=== PATIENT | female | born 1995 | race Caucasian/White ===

== ENCOUNTER 2017-02-02 08:10 | Day surgery (SDC) | payer BC, OTHER ==
[~2017-02-02] VITALS: Ht 160 cm; Wt 59.4 kg
[~2017-02-02 08:10] MED LIST: BUDESONIDE EC3 MG PO; CEPHALEXIN250 MG/5 M PO; CEPHALEXIN500 MG PO; CLINDAMYCIN HC150 MG PO; DOXYCYCLINE HY100 MG PO; HUMIRA40 MG/0.1 SUB-Q; MULTIVITAMINS1 EAC7 PO; NORCO 5-325 TA1 EACH PO; NORDETTE-281 EACH PO; PREDNISONE20 MG PO
[2017-02-02] MEDS ORDERED: CYMBALTA30 MG PO (08:22)
--- NOTE | 2017-02-02 09:56 | NUR ---
PT IN FOR PORTACATH PLACEMENT. HAS HAD TO MOVE HOME FROM [facility] [place] BECAUSE OF HER CHRONS DISEASE. PT HAS A GREAT SARCASTIC SENSE OF HUMOR. GREAT SUPPORT BY HER PARENTS. SHE IS ALERT, ORIENTED AND WELL AWARE OF WHAT IS TAKING PLACE TODAY. PT DECLINED PRAYER, WILL FOLLOW NEEDED
--- NOTE | 2017-02-02 11:19 | NUR ---
02/02/17 1119 [facility] PORTACATH LINE CLEARED FOR USE BY DR JOYNER.
--- NOTE | 2017-02-02 12:04 | NUR ---
1158 PT UP TO THE BATHROOM WITH TYLOR ASST. TOLERATED WELL, STEADY ON HER FEET. VOID NOTED AND PT BACK TO BED.
[2017-02-02] MEDS ORDERED: NORCO 5-325 TA1 EACH PO (12:25)
--- NOTE | 2017-02-02 13:30 | NUR ---
INFORMATION CARD AND PAMPHLET REGARDING PORTACATH GIVEN TO PT.
--- NOTE | 2017-02-05 08:50 | OR ---
[facility] [address], [place] [address] Signed DATE OF SERVICE: 02/02/2017 PREOPERATIVE DIAGNOSES: 1. Crohn's disease. 2. Iron-deficiency anemia. 3. Malabsorption. POSTOPERATIVE DIAGNOSIS: 1. Crohn's disease. 2. Iron-deficiency anemia. 3. Malabsorption. PROCEDURE: 1. Placement of subclavian Port A catheter. 2. Physician directed fluoroscopy. ESTIMATED BLOOD LOSS: None. INDICATIONS: Shannan is a 21-year-old female, who was diagnosed with Crohn's disease around 2012. Shannan has been associated with malabsorption resulting in iron-deficiency anemia. She has been coming for peripheral IV infusion therapy every 2 weeks as ordered by her primary care provider. In addition, she has failed Humira and Remicade because of cutaneous abscesses. She is now headed for IV Entyvio. Last time she came to our day surgery area and it took overran hour to find a peripheral vein even with the help of the ultrasound. Consequently, she has been asked to see me for a Port A Catheter placement. I met with Shannan and her father in the office. Shannan has been online reading. She is very knowledgeable of Crohn's disease and Port A catheters. She specifically declined an IJ approach. We did discuss the risks including, but not limited to bleeding, infection, scarring, change in contour of the skin, pneumothorax requiring chest tube placement, as well as catheter embolization requiring retrieval. She understands the catheter fracture is much higher in the subclavian approach and it is the IJ approach. Nevertheless, she wished to proceed with a subclavian approach. She and her dad expressed understanding and wished to proceed. PROCEDURE NOTE: Shannan was taken into the operating room and placed in the Trendelenburg position under general anesthesia. She was given preoperative antibiotics and SCDs were utilized. She had declined her subcutaneous heparin for fear of increased bleeding. After this, she was prepped and draped in the usual sterile fashion. Local anesthetic was injected around the left clavicle and underneath the left clavicle. We Electronically Signed By: ONI JOYNER MD 02/05/17 0850 PATIENT NAME: SHANNAN MAYFIELD OPERATIVE REPORT DATE OF : [birth year] PHYSICIAN: ONI JOYNER MD REPORT #: [id number] REPORT IS CONFIDENTIAL AND NOT TO BE RELEASED WITHOUT AUTHORIZATION [facility] [address], [place] [address] Signed were able to access the subclavian vein on the 2nd pass of the needle and the wire was able to feed without any resistance whatsoever. The position of the wire was checked with our fluoroscopy unit. The dilator was then carefully passed over the wire without any resistance whatsoever. The position of the dilator was checked with the fluoroscopy unit. After this, the catheter was inserted up to about 20 cm at the level of the clavicle through the dilator. The position was again checked with the fluoroscopy unit.The dilator head sheath had Been removed and we cut the catheter at length and placed the hub on the catheter with the collar securing the catheter on to the hub. The port was able toflush and draw quite readily with injectable saline. We had created a pocket on her anterior chest wall and hub was then placed in the pocket and sutured in place with interrupted Prolene sutures. Again the position of hub and the catheter was checked with the fluoroscopy unit. Once again, we were able to easily draw blood and flushed the catheter with injectable saline. After this, the catheter and hub were filled with concentrated heparin. The wound was Then Irrigated and suctioned out until clear. The dermis was reapproximated with interrupted 3-0 subcuticular Monocryl sutures. Theskin edges were reapproximated with running 6-0 fast absorbing plain gut suture. Dry gauze and tape was then applied. Shannan tolerated procedure quite well. She was then transferred to her hospital bed, weaned from anesthesia, extubated in the OR, and taken to recovery room in stable condition. MD NIKITA Mccormick/Modl /[id number] cc: MD Marilia Thornton [facility] Itz Ríos MD Electronically Signed By: ONI JOYNER MD 02/05/17 0850 PATIENT NAME: SHANNAN MAYFIELD OPERATIVE REPORT DATE OF : [birth year] PHYSICIAN: ONI JOYNER MD REPORT #: [id number] REPORT IS CONFIDENTIAL AND NOT TO BE RELEASED WITHOUT AUTHORIZATION
== END 2017-02-02 13:25 | disposition home or self-care (01) ==
LOC: DS 08:10
PROVIDERS: Colon & Rectal Surgery
PROC: B517YZA Fluoroscopy of Left Subclavian Vein using Other Contrast, Guidance (ICD-10-PCS; 2017-02-02)
PROC: 05H633Z Insertion of Infusion Device into Left Subclavian Vein, Percutaneous Approach (ICD-10-PCS; principal; 2017-02-02 09:15)
DX: D50.9 Iron deficiency anemia, unspecified (principal); K50.90 Crohn's disease, unspecified, without complications; F32.9 Major depressive disorder, single episode, unspecified; F41.9 Anxiety disorder, unspecified; Z87.01 Personal history of pneumonia (recurrent); Z98.818 Other dental procedure status
CPT/HCPCS: 00532; 71010; 77001; C1788; J0690; J1100; J1644; J2250; J2405; J3010; J7120

== ENCOUNTER 2020-03-04 08:57 | Day surgery (SDC) | payer OTHER ==
[~2020-03-04] VITALS: Ht 160 cm; Wt 56.7 kg
--- NOTE | ~2020-03-04 | OR ---
[facility] [address], [place] [address] Draft DATE OF OPERATION: 03/04/2020 SURGEON: Stewart Erazo MD PREOPERATIVE DIAGNOSES: 1. Right axillary abscess. 2. Chronic recurrent Crohn disease with extra intestinal manifestations including multiple skin lesions. POSTOPERATIVE DIAGNOSIS: A deep axillary abscess with chronic granulation tissue. PROCEDURES: 1. Incision and drainage of right axillary abscess. 2. Curettage and debridement of soft tissue, right axilla. 3. Open wound packing. ANESTHESIA: General LMA, Jacobo Herrera CRNA. INDICATION: This 24-year-old white woman is a patient of Dr. Peyton Canseco and also now Dr. Ayla Wood in [facility] (Gastroenterology). She has impressively recalcitrant Crohn disease and known terminal ileal stricture, recently dilated. She has failed multiple biologic agents and is now anticipating investigational new drugs for her problem. She has recently developed a right axillary abscess. 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 The right axillary abscess is recurrent. She has had this before, which was drained. There is exquisite tenderness and a general anesthetic is needed for complete evaluation and treatment of this problem. She is admitted at this time to undergo incision and drainage, and debridement of the lesion as appropriate. She and her family understand the risks of bleeding, infection, prolonged wound healing, and other unforeseen complications and wished to proceed. FINDINGS: Indeed thick purulent material was noted. There was a cavity approximately 4 cm in size, it had chronic granulation tissue in it as well. This was fully debrided with sharp and electrocautery dissection and curettaged. Redundant excessive stretched marginally viable skin was also excised. The wound was packed open. PATIENT NAME: SHANNAN MAYFIELD OPERATIVE REPORT DATE OF : [birth year] REPORT #: [id number] PHYSICIAN: STEWART ERAZO MD PCP: PEYTON CANSECO MD REPORT IS CONFIDENTIAL AND NOT TO BE RELEASED WITHOUT AUTHORIZATION [facility] [address], [place] [address] Draft DESCRIPTION OF PROCEDURE: The patient was brought to the operating room, given a general anesthetic by LMA technique. Preoperative antibiotic Ancef was given. Sequential compression device stockings were used and heparin subcutaneously administered. The right axilla was examined and photographs taken. The area was prepared with a chlorhexidine solution and draped sterilely. An incision was made in the distended skin containing the abscess allowing for egress of purulent material. Gram stain and cultures were obtained. Further incision and suctioning allowed for egress of copious amounts of purulent material. The cavity itself had acute and chronic granulation tissue lining the cavity. This was debrided, but with sharp dissection as well as ultimately electrocautery, fully excising the granulation tissue itself. Redundant skin was excised as well. Curettage was undertaken with abrasion of gauze. A dilute chlorhexidine solution was used to irrigate it as well. Ultimately, the wound was packed with plain gauze and tape applied. She was allowed to emerge from anesthesia and taken to the recovery room in good condition, having suffered no complications. Sponge, needle, and instruments counts were correct x3. Stewart Erazo MD JM/MODL /[id number] cc: Dr. AYLA Joe [place], [place] Peyton Canseco MD Copies: ~ PATIENT NAME: SHANNAN MAYFIELD OPERATIVE REPORT DATE OF : [birth year] REPORT #: [id number] PHYSICIAN: STEWART ERAZO MD PCP: PEYTON CANSECO MD REPORT IS CONFIDENTIAL AND NOT TO BE RELEASED WITHOUT AUTHORIZATION
[~2020-03-04 08:57] MED LIST changes: +CIPRO500 MG PO; +CYMBALTA30 MG PO; +DIPHENOXYLATE-1 EACH PO; +ENTYVIO300 MG IV; +FAMOTIDINE20 MG PO; +FLAGYL500 MG PO; +FOLIC ACID1 MG PO; +K-TAB ER20 MEQ PO; +MAGNESIUM400 MG PO; +MULTIVITAMINS1 EAC8 PO; +MUPIROCIN22 GM TOP; +ONDANSETRON ODT4 MG SL; +PREDNISONE10 MG PO; +STELARA90 MG/1 ML SUB-Q; +TREXALL15 MG PO; +TYLENOL325 MG PO; +VITAMIN D10000 UNIT PO; +VITAMIN D22000 UNIT PO; +ZOFRAN ODT4 MG PO
[2020-03-04] MEDS ORDERED: PERCOCET 5-3251 EACH PO (09:20)
[2020-03-04] MEDS ORDERED: CIMZIA400 MG SUB-Q (09:21)
[2020-03-04] MEDS ORDERED: AMOX TR-K CLV1 EAC1 PO (11:46)
[2020-03-04] MEDS ORDERED: IBUPROFEN600 MG PO (11:46)
[2020-03-04] MEDS ORDERED: ACETAMINOPHEN500 MG PO (11:47)
[2020-03-04] MEDS ORDERED: HYDROMORPHONE HC4 MG PO (11:47)
[2020-03-04] MEDS ORDERED: DIFLUCAN100 MG PO (11:56)
--- NOTE | 2020-03-04 12:39 | NUR ---
03/04/20 1239 Flori Schaffer 1122 PT ARRIVED IN PACU NON RESPONSIVE TO NOXIOUS STIMULI. 1137 PT AWAKE AND C/O R AXILLARY PAIN 10/10. MOVING AROUND BED AND CRYING. DILAUDID 0.4MG GIVEN IVP. TISSUES GIVEN. 1142 NO CHANGE IN PAIN LEVEL. HOLLERING OUT IN PAIN. DILAUDID 0.4MG GIVEN IVP. RN COMFORTING PT. 1147 PAIN DOWN TO 9/10. DILAUDID 0.2MG GIVEN IVP. 1157 TC TO ANESTHESIA WITH NEW ORDERS GIVEN. PT DECLINED FENTANYL AND POST OP BLOCK WHEN OFFERED. UP TO BSC. DILAUDID 0.4MG GIVEN IVP FOR 8/10 R AXILLARY PAIN. 1203 CONTINUES TO SIT ON BSC. UNABLE TO VOID. DILAUDID 0.4MG GIVEN IVP FOR 7/10 PAIN. 1208 PT STATES "I CAN'T VOID WITH SOMEONE IN THE ROOM." BACK IN BED WITH RN ASSIST. C/O BURNING IN R AXILLA /10. DILAUDID 0.2MG GIVEN IVP. 1215 R ARM ELEVATED ON PILLOW FOR PT COMFORT. 1220 TO DS. REPORT GIVEN TO RN.
--- NOTE | 2020-03-04 12:56 | NUR ---
LE 1220: PATIENT RETURNS FROM PACU AND IS REPORTING 7/10 RIGHT AXILLAE PAIN. PATIENT REPORTS "I CANNOT TAKE IBUPROFEN BECAUSE OF MY CROHNS." PATIENT IS UP TO THE BATHROOM WITH MY STANDBY. SHE AMBULATES WELL AND DENIES DIZZINESS. PATIENT REPORTS "A LITTLE" VOID. NO URINE NOTED TO HAT. PATIENT IS BACK IN BED. ICED WATER IS GIVEN. CALL LIGHT IS WITHIN REACH AND HER FATHER IS AT THE BEDSIDE. CALL TO DR ERAZO REQUESTING ORAL PAIN MEDICINE FOR DAY SURGERY. PATIENT ALSO IS REQUESTING PERCOCET GO HOME RX RATHER THAN DILAUDID. JELLO AND PUDDING ARE GIVEN TO PATIENT.
--- NOTE | 2020-03-04 13:56 | NUR ---
MULTIPLE PHONE CALLS TO DR. ERAZO REGARDING PATIENT'S DECLINATION OF DILAUDID AND PREFERENCE TO PERCOCET. NEW ORDER IS RECEIVED. DR. ERAZO REQUESTS THE PATIENT'S FATHER COME TO HIS OFFICE POST 1600 FOR NEW HOME RX FOR PERCOCET. PATIENT IS AMICABLE TO THIS PLAN. PATIENT IS UP TO THE BATHROOM AND SHE DOES WELL WITH THAT. PATIENT IS QUITE TEARFUL DUE TO HER PAIN CONTROL. PATIENT IS BACK IN BED AND IS CONVERSING WITH HER FATHER.
--- NOTE | 2020-03-04 15:01 | NUR ---
LE 1430: PATIENT IS UP TO THE BATHROOM, VOIDS 300 ML CLEAR DARK YELLOW URINE. SHE DOES WELL AMBULATING. DISCHARGE INSTRUCTIONS ARE GIVEN AND PATIENT AND FATHER VERBALIZE UNDERSTANDING. GAUZE AND TAPE SENT WITH PATIENT. PATIENT ASSISTED DRESSED AND SHE TRANSFERS HERSELF TO THE WHEELCHAIR AND THEN TO PERSONAL VEHICLE AND TOLERATES THAT WELL.
--- NOTE | 2020-03-05 11:02 | PATH ---
[facility] [address] [place], [place] [address] Signed SPECIMEN(S): A RIGHT AXILLA SPECIMEN SOURCE: A. RIGHT AXILLA CLINICAL HISTORY: Right axillary abscess ID. FINAL PATHOLOGIC DIAGNOSIS: Skin, right axilla, products of debridement, debridement: - Fragments of reactive epidermis with acute and chronic inflammation and underlying dermal granulation tissue formation. - No evidence of malignancy. NAL:cml:C2NR MICROSCOPIC EXAMINATION: Histologic sections of all submitted blocks are examined by light microscopy. These findings, together with the gross examination, support the pathologic diagnosis. GROSS DESCRIPTION: The specimen, labeled "CP," and designated on the requisition "products of debridement, right axillary abscess," is received in formalin and consists of two pieces of pink-huntley to hemorrhagic skin with underlying soft tissue (3.1 x 0.9 x 0.5 cm, and 2.8 x 1.2 x 0.5 cm). The tissue is serially sectioned to reveal a pink-huntley to hemorrhagic cut surface. Cloth Classer sections are submitted in cassette (A1). AC (under the direct supervision of a pathologist) The Gross Description was prepared using a voice recognition system. The report was reviewed for accuracy; however, sound-alike word errors, addition and/or deletions may occur. If there is any question about this report, please contact Client Services. PERFORMING LABORATORY: The technical component was performed by [email or web address], [address] [place] [id number] (Pilates Coordinator: Anuradha Ro MD; CLIA# [id number]). [email or web address], [address] [address] (CLIA# [id number]). PATIENT NAME: SHANNAN MAYFIELD PATHOLOGY DATE OF : [birth year] REPORT #: [id number] PHYSICIAN: KHARI PATHOLOGY PCP: ELIO CRONIN MD REPORT IS CONFIDENTIAL AND NOT TO BE RELEASED WITHOUT AUTHORIZATION [address] [place] [address] Signed Diagnostician: Savannah Phoenix MD Pathologist Electronically Signed 03/05/2020 Copies: ~ PATIENT NAME: SHANNAN MAYFIELD PATHOLOGY DATE OF : [birth year] REPORT #: [id number] PHYSICIAN: KHARI PATHOLOGY PCP: ELIO CRONIN MD REPORT IS CONFIDENTIAL AND NOT TO BE RELEASED WITHOUT AUTHORIZATION
== END 2020-03-04 14:50 | disposition home or self-care (01) ==
LOC: DS 08:57
PROVIDERS: Surgery
PROC: 0H9BXZZ Drainage of Right Upper Arm Skin, External Approach (ICD-10-PCS; principal; 2020-03-04 09:45)
DX: L02.411 Cutaneous abscess of right axilla (principal); D64.9 Anemia, unspecified; K21.9 Gastro-esophageal reflux disease without esophagitis; K50.90 Crohn's disease, unspecified, without complications; L88 Pyoderma gangrenosum; Z88.8 Allergy status to other drugs, medicaments and biological substances; Z79.899 Other long term (current) drug therapy
CPT/HCPCS: 00400; 84703; J0690; J1100; J1170; J1885; J2001; J2405; J2704; J3010; J7121

== ENCOUNTER 2020-04-23 03:02 | Inpatient (IN) | payer OTHER ==
[~2020-04-23] VITALS: Ht 160 cm; Wt 56.8 kg
--- NOTE | ~2020-04-23 | DS ---
[facility] [address] [place], [place] [address] Draft ADMISSION DATE: 04/23/2020 DISCHARGE DATE: 04/29/2020 REASON FOR ADMISSION: This 25-year-old white woman has longstanding Crohn disease and has failed multiple medical agents for control of the disease including biologic agents. She was treated initially in [place]. I assumed her care a number of months ago when she had incomplete bowel obstruction. She was referred ultimately to [facility], where she was seen by Dr. Wood, and subsequently Dr. Foote in the Gastroenterology Department. The patient was most recently on Cimzia and azathioprine, but did not have benefit from those medications as regard to her segmental small bowel problem and has been off any agent for control of her Crohn disease for over two months. She presented with severe lower abdominal pain and thought considered to have possible appendicitis by the emergency room physician. CT scans performed, which showed a normal appendix, but did show abnormal appearing small bowel with wall thickening, stranding and extraluminal air and focal area in the left mid abdomen consistent with small bowel perforation. She was admitted for further evaluation and care by me. PERTINENT PHYSICAL EXAMINATION: GENERAL: Showed a pale-appearing white woman, accompanied by her father. She was in moderate discomfort, but not diaphoretic. Mucous membranes are dry. NECK: Trachea midline. CHEST: Without sign of respiratory distress or tachypnea. HEART: Regular. ABDOMEN: Nondistended. She had tenderness in the right abdomen and less on the left side. LABORATORY DATA: Her hematocrit was 42.5, platelets 720,000, and white count 880[address]. Liver enzymes normal. Albumin low at 2.7. A CT scan was reviewed, which showed marked inflammatory change of the mid small bowel with extraluminal air, but no sign of generalized free air. The terminal ileum appeared chronically inflamed as well. HOSPITAL COURSE: The patient was admitted, given aggressive fluid resuscitation, broad-spectrum PATIENT NAME: SHANNAN MAYFIELD DISCHARGE SUMMARY DATE OF : [birth year] REPORT #: [id number] PHYSICIAN: STEWART ERAZO MD PCP: PEYTON CANSECO MD REPORT IS CONFIDENTIAL AND NOT TO BE RELEASED WITHOUT AUTHORIZATION [facility] [address] [place], [place] [address] Draft antibiotic meropenem started on hydrocortisone 100 mg IV q.8 hours. DVT prophylaxis as well as ulcer prophylaxis were obtained of course. She did feel better the following day with her white count down to normal and her hematocrit decreased, a testimony primarily to her generalized dehydration. She still had this significant tenderness in the mid abdomen. Review of the CT scan with radiologist confirmed extraluminal air outside the segment of small bowel, consider a junction between the ileum and the jejunum. The patient had been considered for operative management in the distant past, but this was declined as it was of great concern that her ileal Crohn disease extended more proximally for several feet, and therefore a resection would be prohibitive in many ways. Mindful that she had failure of any medical management and now had perforation of the bowel with some variable amount of extraluminal contamination, I recommended laparoscopy, possible laparotomy. On April 24, 2020, she underwent laparoscopy with thorough intraabdominal examination. This allowed for examination of the small bowel from the ligament of Treitz to the terminal ileum. She was noted to have on laparoscopic evaluation, a mid gut segment of small bowel that was markedly inflamed and thickened and with associated extra-intestinal purulent collections. These collections were cultured and later shows pansensitive. Interloop fistulization was noted as well. The offending segment of bowel was secured with a laparoscopic grasper and conversion to a limited mini-laparotomy through an infraumbilical incision was undertaken. The problematic segment of small bowel was drawn outside of the abdomen and showed interloop fistulization and chronic and acute inflammation as well as the perforation segments as previously noted. Segmental bowel resection was undertaken with an end-to-end enteroenterostomy. The size of the bowel proximally and distally was such that an end-to-end anastomosis was deemed optimal actually. The resected segment was 16 inches as a measured length in total. Mindful of her long-standing terminal ileitis examination distally was undertaken showing problematic terminal ileum as well, and it was recalled that she had undergone dilation of the segment by Dr. Foote in the past several months. The right colon and cecum were mobilized out of the wound and the ileocecectomy was performed. A markedly thickened mesentery was noted in both areas of resection. A [id number] enterocolostomy was performed in a hand-sewn technique once again. The remaining PATIENT NAME: SHANNAN MAYFIELD DISCHARGE SUMMARY DATE OF : [birth year] REPORT #: [id number] PHYSICIAN: STEWART ERAZO MD PCP: PEYTON CANSECO MD REPORT IS CONFIDENTIAL AND NOT TO BE RELEASED WITHOUT AUTHORIZATION [address] [address] Draft intraabdominal inspection shows no other problems. The most problematic offending bowel has been resected and GI continuity restored. Copious irrigation was undertaken and no drain was left in place. Postoperatively, she was maintained with broad-spectrum antibiotics and hydrocortisone 100 mg IV q.8 hours. She had marked improvement right away, indeed even her systemic toxicity looked quite minimal. She was weaned off high-dose steroids to prednisone 20 mg a day. Phone conference was undertaken with Dr. Foote, who recommended she return to her Cimzia and azathioprine as she is no longer considered a candidate for the protocol study. Her steroids were discontinued at time of discharge. Her cultures of peritoneal fluid ultimately showed E coli, which was pansensitive. She will be discharged with Flagyl and Cipro orally administered for one week. Additionally, she will be given Diflucan 200 mg p.o. daily #7 seven as she is beginning to have a yeast infection. By the time of discharge, she is ambulating well, tolerating a regular diet, has minimal incisional pain, and is much improved. A special note, she has had a fair amount of peripheral edema, for which Lasix was initiated. This is related indeed to fluid resuscitation, but also importantly her hypoalbuminemia. Special note, pre-albumin level was obtained at the outside of her hospitalization, which was only 5.8. FOLLOWUP PLANS: The patient is return to see me in approximately a month. She should lift no more than 20 pounds for the next 4 weeks. She should walk daily. She will keep Steri-Strips on and is permitted to shower. There are no restrictions on her diet, it should be as tolerated. I emphasized to her that it is essential that she return to a medical regimen regarding the Crohn disease as it may well recur even with it and the plan will be made for further followup with Dr. Wood and Dr. Foote as well. Dr. Foote tells me that her Cimzia and azathioprine has already been prescribed and is available to her. DISCHARGE DIAGNOSES: 1. Severe Crohn disease medically refractory to the usual medications. 2. Presentation with perforated small bowel mid abdomen, status post segmental resection PATIENT NAME: SHANNAN MAYFIELD DISCHARGE SUMMARY DATE OF : [birth year] REPORT #: [id number] PHYSICIAN: STEWART ERAZO MD PCP: PEYTON CANSECO MD REPORT IS CONFIDENTIAL AND NOT TO BE RELEASED WITHOUT AUTHORIZATION [facility] [address] [place], [place] [address] Draft with end-to-end anastomosis and ileocecectomy, aggregate bowel resected 16 inches + 6 inches. 3. Poorly healing scalp lesion in the left frontal parietal area, history of debridement. In addition of this, the patient will follow up with her usual physician, Dr. Peyton Canseco. DISCHARGE MEDICATIONS: 1. Tylenol 500 mg two tablets p.o. q.6 hours p.r.n. pain. 2. Lasix 20 mg p.o. b.i.d. 3. Famotidine 20 mg p.o. b.i.d. 4. Diflucan 100 mg p.o. daily. 5. Ciprofloxacin 500 mg p.o. b.i.d., #14. 6. Potassium chloride 20 mEq p.o. b.i.d., #14. MD ROSANNE Caraballo/MODL /[id number] cc: Peyton Canseco MD Copies: ~ PATIENT NAME: SHANNAN MAYFIELD DISCHARGE SUMMARY DATE OF : [birth year] REPORT #: [id number] PHYSICIAN: STEWART ERAZO MD PCP: PEYTON CANSECO MD REPORT IS CONFIDENTIAL AND NOT TO BE RELEASED WITHOUT AUTHORIZATION
--- OUTSIDE RECORDS SUMMARY | ~2020-04-23 | XMS | Encounter Summary ---
Demographics + + + | Address | [address] | | | [place] [address] | + + + | Home Phone | | + + + | Preferred Language | Unknown | + + + | Marital Status | Single | + + + | Pentecostalism Affiliation | Unknown | + + + | Race | White | + + + | Ethnic Group | Not or | + + + Author + + + | Author | [facility] | | | and [place] | + + + | Organization | [facility] | | | and [place] | + + + | Address | Unknown | + + + | Phone | Unavailable | + + + Support + + + + + | Name | Relationship | Address | Phone | + + + + + | Ancajany White | ECON | [address] | | | | | [place] | | | | | [address] | | + + + + + Care Team Providers + +------+ + | Care Shipping Clerk/Admin Name | Role | Phone | + +------+ + | Peyton Canseco MD | PCP | | + +------+ + Encounter Details +--------+ + + + + | Date | Type | Department | Care Team | Description | +--------+ + + + + | 06/14/ | Orders Only | [facility] | Conversion | | | 2018 | | CONVERSION DEP [address] | Transaction, | | | | | [address] | Provider Unknown | | | | | [place], [place] | [phone] | | | | | [address] | | | | | | [phone] | | | +--------+ + + + + Social History + +-------+ +--------+------+ | Tobacco Use | Types | Packs/Day | Years | Date | | | | | Used | | + +-------+ +--------+------+ | Never Assessed | | | | | + +-------+ +--------+------+ + + + | Sex Assigned at | Date Recorded | | | | + + + | Not on file | | + + + documented as of this encounter Plan of Treatment Not on filedocumented as of this encounter Visit Diagnoses Not on filedocumented in this encounter"
--- OUTSIDE RECORDS SUMMARY | ~2020-04-23 | XMS | Encounter Summary ---
Demographics + + + | Address | [address] | | | [place] [address] | + + + | Home Phone | | + + + | Preferred Language | Unknown | + + + | Marital Status | Single | + + + | Gnosticism Affiliation | Unknown | + + + | Race | White | + + + | Ethnic Group | Not or | + + + Author + + + | Author | [facility] | | | and [place] | + + + | Organization | [facility] | | | and [place] | + + + | Address | Unknown | + + + | Phone | Unavailable | + + + Support + + + + + | Name | Relationship | Address | Phone | + + + + + | Ancajany White | ECON | [address] | | | | | [place] | | | | | [address] | | + + + + + Care Team Providers + +------+ + | Care President [employer] Name | Role | Phone | + +------+ + | Peyton Canseco MD | PCP | | + +------+ + Reason for Visit +--------+ + | Reason | Comments | +--------+ + | | | +--------+ + Auth/Cert +--------+--------+ + + + + | Status | Reason | Specialty | Diagnoses / | Referred By | Referred To | | | | | Procedures | Contact | Contact | +--------+--------+ + + + + | | | | Diagnoses | | | | | | | | | | | | | | Qaxlnij-xq-x | | | | | | | no | | | | | | | Procedures | | | | | | | EXAM UNDER | | | | | | | ANESTHESIA | | | | | | | RECTAL | | | +--------+--------+ + + + + Encounter Details +--------+---------+ + + + | Date | Type | Department | Care Team | Description | +--------+---------+ + + + | 10/01/ | Surgery | [facility] | Juan Zepeda, | EXAM UNDER | | 2019 | | REGIONAL SURGERY | MD Rose WATKINS | ANESTHESIA RECTAL | | | | [facility] | [address] | | | | | [address] | [place] [address] | | | | | [place], [place] | [phone] | | | | | [address] | | | | | | [phone] | | | +--------+---------+ + + + Social History + +-------+ +--------+------+ | Tobacco Use | Types | Packs/Day | Years | Date | | | | | Used | | + +-------+ +--------+------+ | Never Smoker | | | | | + +-------+ +--------+------+ + +---+---+---+ | Smokeless Tobacco: | | | | | Never Used | | | | + +---+---+---+ + + +---------+ + | Alcohol Use | Drinks/Week | oz/Week | Comments | + + +---------+ + | Not Currently | | | | + + +---------+ + + + + | Sex Assigned at | Date Recorded | | | | + + + | Not on file | | + + + documented as of this encounter Last Filed Vital Signs + + + + + | Vital Sign | Reading | Time Taken | Comments | + + + + + | Blood Pressure | 102/52 | 10/02/2019 9:45 AM | | | | | PDT | | + + + + + | Pulse | 97 | 10/02/2019 9:45 AM | | | | | PDT | | + + + + + | Temperature | 36.5 C (97.7 F) | 10/02/2019 9:27 AM | | | | | PDT | | + + + + + | Respiratory Rate | 40 | 10/02/2019 9:30 AM | | | | | PDT | | + + + + + | Oxygen Saturation | 100% | 10/02/2019 9:45 AM | | | | | PDT | | + + + + + | Inhaled Oxygen | - | - | | | Concentration | | | | + + + + + | Weight | 60.2 kg (132 lb 12.8 | 10/02/2019 8:26 AM | | | | oz) | PDT | | + + + + + | Height | 160 cm (5' 3") | 10/02/2019 8:26 AM | | | | | PDT | | + + + + + | Body Mass Index | 23.52 | 10/02/2019 8:26 AM | | | | | PDT | | + + + + + documented in this encounter Discharge Instructions Jah Vieyra RN - 10/02/2019Post-Surgical Instructions Juan Zepeda MD MEDICATIONS You will be given a prescription for pain. Take 1-2 tablets every 4-6 hours as needed. Pa in medications will ease your pain, but you should expect some incisional pain for about 7-1 0 days. You should walk often, cough and take deep breathes. DIET You will begin a high fiber diet. The easiest way to a high fiber diet is to take a fiber supplement. An excellent supplement is plain, unflavored Metamucil. You should take one ta blespoon in 8 oz of water twice a day. Ideally, you should take the supplement before break fast and dinner. You may experience some gas bloating for the first 2 weeks. This is leeann l and will go away as long as you keep taking the supplement. Other supplements that can be taken include Pet Walker, Benefiber, Konsyl, or Citrucel. Continue to take the fiber supple ment for 1 month. In addition, go to the drugstore and get Jono s Milk of Magnesia. While you are taking your prescription pain medication, take 2 tablespoons of Milk of Magnesia each morning. Th is will prevent you from getting overly constipated while on the narcotic drug. Once you st op taking the prescription pain medication, you may stop taking the Milk of Magnesia. WOUND CARE You will perform sitz baths two-three times a day for 3-4 weeks. Sitz baths simply mean so aking your anus in a tub of warm-hot water for about 15 minutes. Sitz baths will clean the anal wound as well as relax the anal sphincter muscles, which will help minimize your pain. Be careful around the anal wound, especially if you have stitches on the outside. Gently p at your anus dry (never rub) or simply dry your anus with a blow-dryer set to cool/warm. D o not soak your anus beyond 15 minutes. If you have a packing placed on the outside of the anus which you can remove with your nex t shower or bowel movement. You will need to go to the pharmacy for 4x4 gauze and paper tape. The first dressing sexton e should be completed on the evening after surgery. It is normal to see some blood when the dressing is removed. Replace the dressing with a dry gauze covered with tape. Dressing ch anges should be performed 2-3 times a day after soaking your wound in a tub of warm-hot wate r or showering for 15 minutes (water should fall directly on wound). You may place a female hygiene pad over the wound rather than gauze. You may also cover the opening with gauze an d then cover the gauze with a female hygiene pad. It is your choice based on comfort. ACTIVITY After surgery, your driving reflexes will be slower, especially if you are taking pain medi cations. Therefore, you are restricted from driving until after your follow-up visit and af ter you have stopped taking your prescription pain meds. You may walk about the house, go s hopping, or eat at a restaurant. You may also climb stairs, but no weight lifting, power-wa lking, jogging, or using the Stair-Master . You can sit on your wound, but keep in min d that the less you sit, the less pain you will have. APPOINTMENT Please call our office for an appointment in 2 weeks after surgery, unless otherwise instru cted. This will allow ample time for the swelling and soreness to resolve before your wound is examined. There may be some bleeding from your wound. This is normal. If you begin bl eeding heavily, have fevers, chills, or if you are concerned about your wound, please call s immediately at [phone] or go to the [facility] Emergency Room. documented in this encounter Medications at Time of Discharge + + + +---------+ + + | Medication | Sig | Dispensed | Refills | Start | End Date | | | | | | Date | | + + + +---------+ + + | acetaminophen | Take 500 mg by mouth | | 0 | 06/14/20 | | | (TYLENOL) 500 mg | every 6 (six) hours | | | 18 | | | tablet | as needed for Pain. | | | | | + + + +---------+ + + | azaTHIOprine | | | 0 | 09/28/19 | | | (IMURAN) 50 mg | | | | 20 | | | tablet | | | | | | + + + +---------+ + + | cholecalciferol | Take 50 mcg by mouth | | 0 | | | | (VITAMIN D-3) 50 mcg | Daily. | | | | | | (2,000 units) | | | | | | | tablet | | | | | | + + + +---------+ + + | Multiple | Take 1 tablet by | | 0 | 06/14/20 | | | Vitamins-Minerals | mouth daily. | | | 18 | | | (MULTIVITAMIN WITH | | | | | | | MINERALS) tablet | | | | | | + + + +---------+ + + | ondansetron | dissolve 1 tablet by | | 0 | 05/09/20 | | | (ZOFRAN ODT) 4 mg | mouth three times a | | | 18 | | | disintegrating | day if needed for | | | | | | tablet | nausea | | | | | + + + +---------+ + + | | Take 1 tablet by | 30 | 0 | 10/02/19 | | | oxyCODONE-acetaminop | mouth every 6 hours | tablet | | 20 | 0 | | hen (PERCOCET) 5-325 | as needed for Pain | | | | | | mg per tablet | for up to 14 days. | | | | | + + + +---------+ + + documented as of this encounter H&P Notes Juan Zepeda MD - 10/02/2019 8:02 AM PDTFormatting of this note might be different f rom the original. Audrey White is an 24 y.o. female. History Obtained From: History obtained from chart review and the patient. CHIEF COMPLAINT: perianal pain and bleeding. ATA Ventura is a very pleasant 24-year-old female patient with a history of Crohn's disease, no w currently on Remicade. Her current GI provider is in [place]. She has tried Humira Entyv io and Stelara without significant improvement in her symptoms. 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 At her last seton exchange this was extremely uncom fortable for her. No other complaints at this time. Patient also met with a surgeon in [facility] who did not recommend surgery for Crohn's disease. Past Medical History: Diagnosis Date Anemia hx Anxiety Back pain Crohn disease (HCC) Crohn's disease of both small and large intestine with fistula (HCC) 05/24/2018 Heart murmur MRSA (methicillin resistant staph aureus) culture positive 06/2018 prior to debridement Other chronic pain intestinal cramping PONV (postoperative nausea and vomiting) Postoperative nausea Staphylococcus infection Wound drainage perirectal Allergies: Allergies Allergen Reactions Remicade [Infliximab] Anaphylaxis Principal Problem: Wzchakz-mg-iyb Vitals: 10/02/19 0826 BP: 112/70 Pulse: 109 Resp: 16 Temp: 36.7 C (98 F) Review of Systems All other systems reviewed and are negative. Physical Exam Vitals signs and nursing note reviewed. HENT: Head: Atraumatic. Mouth/Throat: Mouth: Mucous membranes are dry. Eyes: Pupils: Pupils are equal, round, and reactive to light. Cardiovascular: Rate and Rhythm: Normal rate. Pulmonary: Effort: Pulmonary effort is normal. Abdominal: General: Abdomen is flat. Palpations: Abdomen is soft. Genitourinary: Skin: General: Skin is warm. Neurological: Mental Status: She is alert and oriented to person, place, and time. Psychiatric: Mood and Affect: Mood normal. Assessment&Plan: 24-year-old female patient with Crohn's disease and perianal fistula x2. It is time for se ton exchange however the due to the patient's discomfort at her last seton exchange in the p yogenic granulomas noted on today's exam we will schedule her for an exam anesthesia and set on exchange with Dr. Zepeda. Procedure options, risks, benefits and alternatives reviewe d with patient who express(es) understanding. Any and all questions were answered to their satisfaction. Juan Zepeda MD 10/02/2019 documented in this encounter Miscellaneous Notes Op Note - Juan Zepeda MD - 10/02/2019 8:02 AM [facility] Service: Colon & Rectal Surgery Operative Note Pre-operative Diagnosis: Crohn's disease, fistula In ano with seton in place Post-operative Diagnosis: Same Procedure(s): fistula in ano, seton placement Surgeon: Duane GARDINER Neuropsychiatrist(s): none Anesthesia: MAC and Local anesthesia Estimated Blood Loss: 2 cc Other: Specimen: none Indications: See pre-operative history and physical. Findings: right lateral and right anterior transsphincteric fistula in ano, one internal op ening at the anterior midline (epithelializing) The external opening both have large cavities and heavy granulation tissue. Complications: None acute Description of Procedure: The patient was taken back to the operating room. Preoperative antibiotics were given. Kanika butcher was placed in the prone jackknife position. The area was prepped and draped in the usu al sterile fashion. Digital rectal exam and anoscopy were performed. Finding were of right lateral and right an terior transsphincteric fistula in ano, one internal opening at the anterior midline (epithe lializing). The external opening widened and the granulation tissue curetted and then a vess el loop seton X 2 placed and secured with 2-0 silk. Both setons share the internal opening b ut different external openings. The rectum does not look inflamed clinically. She would be a candidate for a Flap possibly if her Crohn's can be under control with biologics. The external opening both have large cavities and heavy granulation tissue. Local anesthesia infiltrated, Bacitracin ointment and dressing applied. Juan Zepeda MD 10/02/2019 documented in this encounter Plan of Treatment Not on filedocumented as of this encounter Procedures + +--------+ + + + | Procedure Name | Priori | Date/Time | Associated Diagnosis | Comments | | | ty | | | | + +--------+ + + + | PLACEMENT SETON | | 10/02/2019 | [id number]-tq-vqb | | | | | 8:51 AM | | | | | | PDT | | | + +--------+ + + + +---+--------+ | | Case | | | Notes | | | EUA/ | | | SETON | | | | | | EXCHAN | | | GE | +---+--------+ | | | | | Specia | | | l | | | Needs | | | PT | | | REQUES | | | T | | | ANESTH | | | ESIA | | | TO | | | START | | | IV.... | | | THANKS | +---+--------+ + +---+ + +---+ | EXAM UNDER | | 10/02/2019 | [id number]-pb-kuv | | | ANESTHESIA RECTAL | | 8:51 AM | | | | | | PDT | | | + +---+ + +---+ +---+--------+ | | Case | | | Notes | | | EUA/ | | | SETON | | | | | | EXCHAN | | | GE | +---+--------+ | | | | | Specia | | | l | | | Needs | | | PT | | | REQUES | | | T | | | ANESTH | | | ESIA | | | TO | | | START | | | IV.... | | | THANKS | +---+--------+ + +--------+ +---+ + | HCG, URINE, QUAL | Routin | 10/02/2019 | | Results for this | | | e | 8:25 AM | | procedure are in the | | | | PDT | | results section. | + +--------+ +---+ + documented in this encounter Results , Urine, Qual (10/02/2019 8:25 AM PDT) + + + + + + | Component | Value | Ref Range | Performed | Pathologist | | | | | At | Signature | + + + + + + | HCG | Negative | | [facility] | | | Qualitative | | | LABORATORY | | | , Urine | | | | | + + + + + + + + | Specimen | + + | Urine | + + + + + + + | Performing | Address | City/State/Zipcode | Phone Number | | Organization | | | | + + + + + | [facility] | [address] | [place] [address] | [phone] | + + + + + documented in this encounter Visit Diagnoses + + | Diagnosis | + + | Lhmmsci-jf-bee Anal fistula | + + documented in this encounter Admitting Diagnoses + + | Diagnosis | + + | Rvyoclr-ed-sgz Anal fistula | + + documented in this encounter Administered Medications + +--------+ +---------+------+ + | Medication Order | MAR | Action | Dose | Rate | Site | | | Action | Date | | | | + +--------+ +---------+------+ + | bacitracin topical ointment | Given | 10/02/19 | 1 | | Surgical | | PRN, Starting 10/02/19 at | | 20 9:05 | Package | | Site | | 0905, Intra-op | | AM PDT | | | | + +--------+ +---------+------+ + +---+---+ | | | +---+---+ + +-------+ +--------+---+---+ | bupivacaine 0.5%-EPINEPHrine | Given | 10/02/19 | 20 mLs | | | | 1:200,000 (PF) injection PRN, | | 20 9:15 | | | | | Starting 10/02/19 at 0915, | | AM PDT | | | | | Intra-op | | | | | | + +-------+ +--------+---+---+ +---+---+ | | | +---+---+ + +-------+ +--------+---+---+ | fentaNYL (PF) injection 25-50 | Given | 10/02/19 | 25 mcg | | | | mcg 25-50 mcg, Intravenous, | | 20 9:40 | | | | | EVERY 5 MIN PRN, Pain, Initial | | AM PDT | | | | | postop urgent pain or escalating | | | | | | | pain, Starting 10/02/19 at | | | | | | | 0934, For 4 doses, (2 doses | | | | | | | maximum for opioid naive, 4 doses | | | | | | | maximum for opioid tolerant) | | | | | | | First dose must be lowest dose. | | | | | | | Use Pasero Sedation Scale. | | | | | | | [Opioid tolerant = One week or | | | | | | | longer, qqqaak-cpt-kcffc use of | | | | | | | at least the following DAILY | | | | | | | dose: 60mg oral morphine, 60mg | | | | | | | oral hydrocodone, 30mg oral | | | | | | | oxycodone, 8mg oral | | | | | | | hydromorphone, fentanyl patch | | | | | | | 25mcg/hr, or equivalent dose of | | | | | | | another opioid], Recovery/Phase I | | | | | | + +-------+ +--------+---+---+ +---+---+ | | | +---+---+ + +-------+ +--------+---+ + | lidocaine 1%-EPINEPHrine | Given | 10/02/19 | 20 mLs | | Surgical | | 1:100,000 injection PRN, | | 20 9:15 | | | Site | | Starting 10/02/19 at 0918, | | AM PDT | | | | | Intra-op | | | | | | + +-------+ +--------+---+ + +---+---+ | | | +---+---+ + +-------+ + +---+---+ | oxyCODONE-acetaminophen | Given | 10/02/19 | 1 tablet | | | | (PERCOCET) 5-325 mg per tablet | | 20 9:51 | | | | | 1-2 tablet 1-2 tablet, Oral, | | AM PDT | | | | | EVERY 4 HOURS PRN, Pain, Starting | | | | | | | 10/02/19 at 0950, | | | | | | | Post-op/Phase II | | | | | | + +-------+ + +---+---+ +---+---+ | | | +---+---+ documented in this encounter
--- OUTSIDE RECORDS SUMMARY | ~2020-04-23 | XMS | Encounter Summary ---
Demographics + + + | Address | [address] | | | [place] [address] | + + + | Home Phone | | + + + | Preferred Language | Unknown | + + + | Marital Status | Single | + + + | Orthodox Affiliation | Unknown | + + + | Race | White | + + + | Ethnic Group | Not or | + + + Author + + + | Author | [facility] | | | and [place] | + + + | Organization | [facility] | | | and [place] | + + + | Address | Unknown | + + + | Phone | Unavailable | + + + Support + + + + + | Name | Relationship | Address | Phone | + + + + + | Ancajany White | ECON | [address] | | | | | [place] | | | | | [address] | | + + + + + Care Team Providers + +------+ + | Care Catechist Name | Role | Phone | + +------+ + | Peyton Canseco MD | PCP | | + +------+ + Encounter Details +--------+ + + + + | Date | Type | Department | Care Team | Description | +--------+ + + + + | 10/01/ | Anesthesia | [facility] | Rommel Wilkins | | | 2019 | Event | [facility] | [address] | | | | | [facility] | [address] | | | | | [address] | [place] [address] | | | | | [place], [place] | [phone] | | | | | [address] | | | | | | [phone] | | | +--------+ + + + + Anesthesia Record + + + + + | Procedure Name | Responsible | Anesthesia Start | Anesthesia Stop Time | | | Anesthesiologist | Time | | + + + + + | EXAM UNDER | Rommel Hardy | 10/02/19850 | 10/02/19926 | | ANESTHESIA RECTAL | PAMELA Wilkins | | | | (N/A Rectum) | | | | + + + + + +----+---+ + + | Da | T | Event | Comment | | te | i | | | | | m | | | | | e | | | +----+---+ + + | 03 | 0 | | | | /1 | 8 | | | | 0/ | 4 | | | | 20 | 0 | | | | 20 | | | | +----+---+ + + | | 0 | An Start | Reassessment prior to anesthesia induction/procedure. | | | 8 | | | | | 5 | | | | | 1 | | | +----+---+ + + | | 0 | Antibiotic | | | | 8 | Given | | | | 5 | | | | | 5 | | | +----+---+ + + | | 0 | An | | | | 8 | Induction | | | | 5 | | | | | 5 | | | +----+---+ + + | | 0 | Anesthesia | | | | 8 | Ready | | | | 5 | | | | | 8 | | | +----+---+ + + | | 0 | an stop | | | | 9 | data | | | | 2 | | | | | 4 | | | +----+---+ + + | | 0 | An Stop | Patient handed off to recovery nurse. Electronically signed by: | | | 9 | | Rommel Antony Franky, ANTISUBMARINE WEAPONS OFFICER at 10/02/2019 9:27 AM | | | 2 | | | | | 7 | | | +----+---+ + + +------+ | Meds | +------+ + + + | Name | Total | + + + | propofol | 120 mg | + + + | propofol infusion | 293.78 mg | + + + | ceFAZolin in dextrose (ANCEF) | 2 g | | IVPB 2 g | | + + + | metroNIDAZOLE in saline (FLAGYL) | 500 mg | | IVPB 500 mg | | + + + | lactated ringers (LR) infusion | 200 mL | + + + + + | Name | + + | Secondary O2 Flow Rate | + + + + | No blood administrations on file. | + + +--------+ + + + | Type | Details | Placement | Removal | +--------+ + + + | Wound | 10/02/19; 935; Incision; anus | 10/02/19935 by | | | | | Adrianne Cuadra RN | | +--------+ + + + | Periph | 10/02/19 (Inserted by Cass, | 10/02/19 0820 by | 10/02/19 1013 by | | christina | SANNA); 0820; Right; Forearm; | Sonal Lubin RN | Jah Moya RN | | IV | ridr-euf-fyuwgz catheter system; | | | | | 20 gauge; no longer indicated; | | | | | short term use; 10/02/19; 1013 | | | +--------+ + + + documented in this encounter Social History + +-------+ +--------+------+ | Tobacco [...] + + documented as of this encounter OR Notes Anesthesia Postprocedure Evaluation - Rommel Wilkins CRNA - 10/02/2019 9:28 AM PDT ANESTHESIA POSTANESTHESIA EVALUATION Audrey White 24 y.o. female 1995 [id number] Procedure(s) EXAM UNDER ANESTHESIA RECTAL (N/A Rectum) PLACEMENT SETON (N/A Anus) Cooperates? Yes Mental Status Performs simple tasks. Respiratory Satisfactory - Airway patent (self maintained). Cardiovascular Satisfactory - Blood pressure and heart rate acceptable Temperature Satisfactory Pain Satisfactory N/V Control Satisfactory Hydration Satisfactory - No signs of dehydration Adverse Events ADVERSE EVENTS: No adverse events Vitals Value Taken Time Temp 36.5 C (97.7 F) 10/02/2019 9:27 AM Pulse 112 10/02/2019 9:27 AM Resp 30 10/02/2019 9:27 AM BP 122/82 10/02/2019 9:27 AM Arterial Line BP Arterial Line BP 2 SpO2 100 % 10/02/2019 9:27 AM Electronically signed by Rommel Wilkins CRNA 10/02/2019 9:29 AM [facility] nesthesia Preprocedure Evaluation - Rommel Wilkins CRNA - 10/02/2019 8:10 AM PDTFor matting of this note might be different from the original. ANESTHESIA PREANESTHESIA EVALUATION Audrey White 24 y.o. female 1995 [id number] Procedure(s): EXAM UNDER ANESTHESIA RECTAL (N/A Rectum) PLACEMENT SETON (N/A Anus) Medical,anesthesia, drug, allergy histories reviewed, NPO status verified. ECG reviewed. Labs reviewed. (-) perioperative beta-obdulio/statin not given/taken, reason : not applicable/Not taking Beta-Obdulio. Review of Systems / Med History Anesthesia History (+) PONV. Family Anesthesia History Family Anesthesia Negative except where noted below. Cardiovascular Exercise tolerance >4 METS (+) history of heart murmur . Pulmonary Negative except where noted below. Gastrointestinal/Hepatic Negative except where noted below. Renal Negative except where noted below. Hematology/Other (+) anemia. Cancer Negative except where noted below. Obstetrics Negative except where noted below. Pediatric History Negative except where noted below. Neuromuscular Negative except where noted below. (+) back pain, chronic pain. Physical Exam Airway MP II, TM >3 FB, Dental grossly normal except where noted below. CV cardiovascular normal Pulm Clear to auscultation bilaterally. Neuro grossly normal. Other Open wound on scalp from multiple I and D proceedures, covered for case with 4x4 and hat Anesthesia Plan ASA: 2 Type: General. Induction: Intravenous. Potential problems: None anticipated. Monitors: Standard ASA monitors. Postop Pain Management: Consent statement: Anesthetic plan, alternatives, risks and benefits discussed with patient. , heart prob lems, infection, pain, sore throat, stroke, voice injury Consenting person understands and agrees to proceed. Discussed plan with [employer] OFFICER. Electronically Signed by: Rommel Wilkins CRNA ESig date/time: 10/02/2019 8:36 AM documented in this encounter Miscellaneous Notes Anesthesia Post-op Handoff - Rommel Wilkins CRNA - 10/02/2019 9:28 AM PDTFormattin g of this note might be different from the original. ANESTHESIA HANDOFF NOTE Audrey White 24 y.o. female 1995 [id number] EXAM UNDER ANESTHESIA RECTAL (N/A Rectum) PLACEMENT SETON (N/A Anus) HANDOFF NOTE Handoff Protocol Used: post-procedure handoff checklist completed The following were completed during the transfer of care: 1. Identification of patient 2. Identification of responsible practitioner (primary service) 3. Discussion of pertinent medical history 4. Discussion of the surgical/procedure course (procedure, reason for surgery, procedure pe rformed) 5. Intraoperative anesthetic management and issues/concerns 6. Expectations/plans for the early post-procedure period 7. Opportunity for questions and acknowledgement of understanding of report from receiving team Patient Location: Phase I Condition: responds to stimuli and sedated Airway/O2: face mask with O2 Multimodal analgesia: multimodal analgesia used between 6 hours prior to anesthesia start t o PACU discharge The significant anesthesia concerns and VS in Epic were reviewed with the receiving team. Rommel Wilkins CRNA 10/02/2019 9:28 AM [facility] d ocumented in this encounter Plan of Treatment Not on filedocumented as of this encounter Visit Diagnoses Not on filedocumented in this encounter Administered Medications + +--------+ +------+------+------+ | Medication Order | MAR | Action | Dose | Rate | Site | | | Action | Date | | | | + +--------+ +------+------+------+ | ceFAZolin in dextrose (ANCEF) | Given | 10/02/19 | 2 g | | | | IVPB 2 g 2 g, Intravenous, | | 20 8:53 | | | | | Administer over 30 Minutes, Prior | | AM PDT | | | | | to Incision, Starting Tue | | | | | | | 10/02/19 at 0807, For 1 dose, | | | | | | | Pre-op, Indications: Surgical | | | | | | | Prophylaxis | | | | | | + +--------+ +------+------+------+ +---+---+ | | | +---+---+ + +---------+ +---+---+---+ | lactated ringers (LR) infusion | New Bag | 10/02/19 | | | | | at 10-100 mL/hr, Intravenous, | | 20 8:51 | | | | | CONTINUOUS, Starting 10/02/19 | | AM PDT | | | | | at 0830, TKO., Pre-op | | | | | | + +---------+ +---+---+---+ +---+---+ | | | +---+---+ + +-------+ +--------+---+---+ | metroNIDAZOLE in saline | Given | 10/02/19 | 500 mg | | | | (FLAGYL) IVPB 500 mg 500 mg, | | 20 8:59 | | | | | Intravenous, Administer over 1 | | AM PDT | | | | | Hours, Prior to Incision, | | | | | | | Starting 10/02/19 at 0807, For | | | | | | | 1 dose, Do not refrigerate., | | | | | | | Pre-op, Indications: Surgical | | | | | | | Prophylaxis | | | | | | + +-------+ +--------+---+---+ +---+---+ | | | +---+---+ + +-------+ +-------+---+---+ | propofol (DIPRIVAN) injection | Given | 10/02/19 | 50 mg | | | | Intravenous, PRN, Starting Tue | | 20 9:02 | | | | | 10/02/19 at 0855, Anesthesia | | AM PDT | | | | | Intra-op | | | | | | + +-------+ +-------+---+---+ +-------+ +-------+---+---+ | Given | 10/02/19 | 20 mg | | | | | 20 8:58 | | | | | | AM PDT | | | | +-------+ +-------+---+---+ | Given | 10/02/19 | 50 mg | | | | | 20 8:55 | | | | | | AM PDT | | | | +-------+ +-------+---+---+ +---+---+ | | | +---+---+ + + + + +-------+---+ | propofol infusion (DIPRIVAN) 10 | Rate/Dos | 10/02/19 | 200 | 72.2 | | | mg/mL infusion Intravenous, | e Change | 20 9:09 | mcg/kg/m | mL/hr | | | CONTINUOUS PRN, Starting Tue | | AM PDT | in | | | | 10/02/19 at 0855, Anesthesia | | | | | | | Intra-op | | | | | | + + + + +-------+---+ + + + +--------+---+ | Rate/Dose Change | 10/02/19 | 250 | 90.3 | | | | 20 9:04 | mcg/kg/m | mL/hr | | | | AM PDT | in | | | + + + +--------+---+ | Rate/Dose Change | 10/02/19 | 300 | 108.4 | | | | 20 9:02 | mcg/kg/m | mL/hr | | | | AM PDT | in | | | + + + +--------+---+ +---+---+ | | | +---+---+ documented in this encounter"
--- OUTSIDE RECORDS SUMMARY | ~2020-04-23 | XMS | Encounter Summary ---
Demographics + + + | Address | [address] | | | [place] [address] | + + + | Home Phone | | + + + | Preferred Language | Unknown | + + + | Marital Status | Single | + + + | Scientologist Affiliation | Unknown | + + + | Race | White | + + + | Ethnic Group | Not or | + + + Author + + + | Author | [facility] | | | and [place] | + + + | Organization | [facility] | | | and [place] | + + + | Address | Unknown | + + + | Phone | Unavailable | + + + Support + + + + + | Name | Relationship | Address | Phone | + + + + + | Anca White | ECON | [address] | | | | | [place] | | | | | [address] | | + + + + + Care Team Providers + +------+ + | Care Associate Automation Engineer Name | Role | Phone | + +------+ + | Peyton Canseco MD | PCP | | + +------+ + Reason for Visit + +--------+ + | Reason | Onset | Comments | | | Date | | + +--------+ + | Appointment | 10/02/ | | | | 2020 | | + +--------+ + Encounter Details +--------+ + + + + | Date | Type | Department | Care Team | Description | +--------+ + + + + | 10/02/ | Telephone | [facility] | Emmanuel | Yolanda | | 2019 | | GENERAL SURGERY [address] | | | | | [address] | [address] | | | | | [place], [place] | [place] [address] | | | | | [address] | [phone] | | | | | [phone] | | | +--------+ + + + [...] + + documented as of this encounter Miscellaneous Notes Telephone Encounter - Celeste Fam, Accounting Support Specialist - 10/03/2019 9:39 AM DILSHAD singh attempted to contact this patient by phone with the following results: LVM informing patie nt since she just had her procedure with Dr. Zepeda yesterday, her appointment with Jason B lanscett, MOBILE UI DEVELOPER today is unnecessary and we will be cancelling it. Informed patient she does have a post op scheduled on 10/16/2019 at 1040. Left office phone number and encouraged esperanza ent to call with any questions or concerns. documented in this encounter Plan of Treatment Not on filedocumented as of this encounter Visit Diagnoses Not on filedocumented in this encounter"
--- OUTSIDE RECORDS SUMMARY | ~2020-04-23 | XMS | Encounter Summary ---
Demographics + + + | Address | [address] | | | [place] [address] | + + + | Home Phone | | + + + | Preferred Language | Unknown | + + + | Marital Status | Single | + + + | Religion Affiliation | Unknown | + + + | Race | White | + + + | Ethnic Group | Not or | + + + Author + + + | Author | [facility] | | | and [place] | + + + | Organization | [facility] | | | and [place] | + + + | Address | Unknown | + + + | Phone | Unavailable | + + + Support + + + + + | Name | Relationship | Address | Phone | + + + + + | Anca White | ECON | [address] | | | | | [place] | | | | | [address] | | + + + + + Care Team Providers + +------+ + | Care Test Operator Name | Role | Phone | + +------+ + PCP | Unavailable | + +------+ + Encounter Details +--------+ + + + + | Date | Type | Department | Care Team | Description | +--------+ + + + + | 11/09/ | [facility] | [facility] | Juan Zepeda, | Perianal abscess | | 2018 - | Encounter | [facility] | [address] | | | | | CLINICAL DECISION | [address] | | | 11/10/ | | [address] | [place] [address] | | | 2018 | | [place], [place] | [phone] | | | | | [address] | | | | | | [phone] | | | +--------+ + + + [...] + + + | Blood Pressure | 96/57 | 11/10/2017 2:00 PM | | | | | PDT | | + + + + + | Pulse | 80 | 11/10/2017 2:00 PM | | | | | PDT | | + + + + + | Temperature | 36.7 C (98.1 F) | 11/10/2017 2:00 PM | | | | | PDT | | + + + + + | Respiratory Rate | 14 | 11/10/2017 2:00 PM | | | | | PDT | | + + + + + | Oxygen Saturation | - | - | | + + + + + | Inhaled Oxygen | - | - | | | Concentration | | | | + + + + + | Weight | 54 kg (119 lb 0.8 | 11/10/2017 2:00 PM | | | | oz) | PDT | | + + + + + | Height | 162.6 cm (5' 4") | 11/10/2017 2:00 PM | | | | | PDT | | + + + + + | Body Mass Index | 20.43 | 11/10/2017 2:00 PM | | | | | PDT | | + + + + + documented in this encounter Discharge Summaries Puma Benitez ARNP - 11/10/2017 12:49 PM PDTFormatting of this note might be differen t from the original. Discharge Summaries by CARLOS Jackson at 11/10/17 2125 Author: CARLOS Jackson Service: General Surgery Author Type: Nurse Casey heard Filed: 11/10/17 1450 Date of Service: 11/10/171248 Status: Signed Pricing Specialist: CARLOS Jackson (Nurse Practitioner) [facility] Service: Colon & Rectal Surgery Discharge Summary Date of Admission: 11/09/2017 Date of Discharge: 11/10/17 Discharge Provider: CARLOS JACKSON Treatment Team: Consulting Physician: Juan Zepeda MD Admitting Provider: Juan Zepeda MD Discharge Diagnoses: Active Problems: * No active hospital problems. * Resolved Problems: * No resolved hospital problems. * Active comorbid conditions include: - anemia - anxiety Procedures: Procedure(s): INCISION & DRAINAGE - PERIANAL/RECTAL BRIEF HISTORY OF PRESENTATION: Taken from H&P: The patient is 22 y.o. female with significant with a history of Crohn 's disease. She gets her treatment with GI [place]. She presents to ED with complaints of anal pain. Started about a week ago, with a constantcourse since that time. 05/03. Moving around, or pressure makes the patient's symptoms worse. Last flare about 1 year ago.The patient also complains of bowel changes, stating that her d iarrhea has suddenly changed to hard stool. Pt was evaluated at urgent care for same, and wa s found to have a "creamy colored discharge" coming from the rectum. Patient denies fevers, or any other Sx at this time.Care prior to arrival consisted of ex tra strength Tylenol during the day and Hydrocodone at night, with norelief.Denies h/o f issures or fistula. Pt states that she runs chronically low in the 90's or low 100's. Denies h/o abdominal surgeries. HOSPITAL COURSE: Shannan White is a 22 y.o. female who underwent a incision and drainage and seton pl acement with Dr. Zepeda. Since surgery she has recovered well. She is tolerating a gene ral diet without N/V. Oral pain medications are managing the patients pain. She is ambulat ory. Vitals and labs are stable. The patient is ready for discharge. Past Medical History Diagnosis Date Anemia Crohn disease (HCC) Methicillin resistant Staphylococcus aureus infection Other chronic pain Past Surgical History Procedure Laterality Date COLONOSCOPY No Known Allergies Prescriptions Prior to Admission Medication Sig Dispense Refill Last Dose HYDROcodone-acetaminophen (NORCO) 5-325 MG per tablet Take 1 tablet by mouth every 6 (s ix) hours as needed for Pain. 11/09/2017 budesonide (ENTOCORT EC) 3 MG delayed replease capsule take 3 capsules by mouth once da sharon for 1 MONTH then take 2 capsu... (REFER TO PRESCRIPTION NOTES). 0 11/07/2017 Cholecalciferol (VITAMIN D3) 09331 units CAPS take 1 capsule by mouth every week for 3 MONTHS 0 Vedolizumab (ENTYVIO IV) Inject into the vein every 30 (thirty) days. 10/18/2017 DISCHARGE EXAM Vital Signs: BP 92/56 (BP Location: Right upper arm) | Pulse 87 | Temp 98.6 F (37 C) (Oral) | Res p 14 | Ht 1.626 m (5' 4") | Wt 54 kg (119 lb 0.8 oz) | LMP 10/20/2017 | SpO2 99% | Carmen stfeeding? No | BMI 20.43 kg/m Temp: [98 F (36.7 C)-99.3 F (37.4 C)] 98.1 F (36.7 C) (11/10 1230) BP: (92-121)/(50-60) 96/57 (11/10 1400) Heart Rate: [80-102] 80 (11/10 1400) Resp: [14-20] 14 (11/10 1400) SpO2: [93 %-100 %] 93 % (11/10 1400) Height: [161.9 cm (5' 3.75")-162.6 cm (5' 4")] 162.6 cm (5' 4") (11/10 1811) Weight: [54 kg (119 lb 0.8 oz)] 54 kg (119 lb 0.8 oz) (11/10 1811) BMI (Calculated): [20.5-20.6] 20.5 (11/10 1811) Physical Exam Constitutional: She is oriented to person, place, and time. She appears well-developed and well-nourished. Cardiovascular: Normal rate. Pulmonary/Chest: Effort normal. Abdomina/Gl: Soft. Neurological: She is alert and oriented to person, place, and time. Skin: Skin is warm and dry. Psychiatric: She has a normal mood and affect. Her behavior is normal. Nursing note and vitals reviewed. DATA CBC: Lab Results Component Value Date WBC 4.30 11/10/2017 RBC 3.33 (L) 11/10/2017 HGB 9.1 (L) 11/10/2017 HCT 26.8 (L) 11/10/2017 MCV 80.5 11/10/2017 MCH 27.2 11/10/2017 MCHC 33.8 11/10/2017 RDW 58.2 (H) 11/10/2017 PLT 436 (H) 11/10/2017 MPV 6.4 11/10/2017 DIFFTYPE AUTOMATED 11/10/2017 CMP: Lab Results Component Value Date NA 141 11/10/2017 K 4.1 11/10/2017 CL 106 11/10/2017 CO2 26 11/10/2017 ANIONGAP 13 11/10/2017 GLUF 95 11/10/2017 BUN 4 (L) 11/10/2017 CREATININE 0.3 (L) 11/10/2017 BCR 13 11/10/2017 CA 7.9 (L) 11/10/2017 PROT 5.6 (L) 11/09/2017 ALB 1.7 (L) 11/09/2017 GLOB 3.9 11/09/2017 BILITOT 0.2 11/09/2017 ALP 113 11/09/2017 AST 9 (L) 11/09/2017 ALT 10 11/09/2017 EGFR >60 11/10/2017 Magnesium: No results found for: MG Phosphorus: No results found for: PHOS PLAN D/C home Disposition: Home Condition: Stable Code Status: Full Code No discharge procedures on file. Follow up: Georgia Carlson PA-C [address] [place] [address] Schedule an appointment as soon as possible for a visit As needed CARLOS Jackson [address] [facility] [phone] In 2 weeks For wound re-check Medication List START taking these medications ciprofloxacin 500 MG tablet QTY: 14 tablet Refills: 0 Commonly known as: CIPRO Take 1 tablet by mouth 2 (two) times daily for 7 days. metroNIDAZOLE 500 MG tablet QTY: 21 tablet Refills: 0 Commonly known as: FLAGYL Take 1 tablet by mouth 3 (three) times daily for 7 days. oxyCODONE-acetaminophen 5-325 MG per tablet QTY: 40 tablet Refills: 0 Commonly known as: PERCOCET Take 2 tablets by mouth every 6 (six) hours as needed for Pain. CONTINUE taking these medications budesonide 3 MG delayed replease capsule Refills: 0 Commonly known as: ENTOCORT EC ENTYVIO IV Refills: 0 Vitamin D3 84013 units Caps Refills: 0 You might also be taking other medications not listed above. If you have questions about an y of your other medications, talk to the person who prescribed them or your Primary Care Pro vider. STOP taking these medications HYDROcodone-acetaminophen 5-325 MG per tablet Commonly known as: NORCO Where to Get Your Medications These medications were sent to [facility] [address] [facility] [address] [place] [address] [facility] of Noemi Reynolds & [address] [address] ciprofloxacin 500 MG tablet metroNIDAZOLE 500 MG tablet You can get these medications from any pharmacy Bring a paper prescription for each of these medications oxyCODONE-acetaminophen 5-325 MG per tablet Discharge took 20 minutes, to include final examination, discussion of admission, and prepa ration of prescriptions, instructions for on-going care, follow-up and documentation of disc harge summary. CARLOS JACKSON 11/10/2017 documented in t his encounter Medications at Time of Discharge + + + +---------+ + + | Medication | Sig | Dispensed | Refills | Start | End Date | | | | | | Date | | + + + +---------+ + + | Vedolizumab | Inject into the | | 0 | 11/10/19 | | | (ENTYVIO IV) | vein every 30 | | | 18 | 0 | | | (thirty) days. | | | | | + + + +---------+ + + documented as of this encounter Progress Notes Conversion Transaction, Provider Unknown - 11/10/2017 4:54 PM PDTFormatting of this note m ight be different from the original. Nurse Progress Note by Vane Rincon RN at 11/10/171653 Author: Vane Rincon RN Service: (none) Author Type: Registered Nurse Filed: 11/10/171655 Date of Service: 11/10/171653 Status: Signed Pricing Specialist: Vane Rincon RN (Registered Nurse) While pt was urinating packing gauze fell into the toilet. Jason Benitez was called and he advised to remove packing and replace with gauze over wound. Packing removed from wound an d covered with gauze. onver jeff Transaction, Provider Unknown - 11/10/2017 4:30 PM PDT Nurse Progress Note by Flori Amador RN at 11/10/17 1630 Author: Flori Amador RN Service: (none) Author Type: Registered Nurse Filed: 11/10/17 1632 Date of Service: 11/10/17 1630 Status: Signed Pricing Specialist: Flroi Amador RN (Registered Nurse) AVS and Rx given. Pt verbalizes understanding. All questions answered. VSS at time of disch arge. Discharging home with family. onver jeff Transaction, Provider Unknown - 11/10/2017 10:22 AM PDT Case Management by KD Gaviria at 11/10/17 1022 Author: KD Gaviria Service: (none) Author Type: Gas System Operator Filed: 11/10/17 1023 Date of Service: 11/10/17 1022 Status: Signed Pricing Specialist: KD Gaviria (Gas System Operator) CM met with pt for discharge planning. Pt is 22 years old and lives with her parents in a 2 -level home. Pt is independent with her mobility. Pt denied any difficulty obtaining her med ications and had no resource concerns at this time. CM will continue to follow as needed. 11/10/17 1021 Discharge Planning Evaluation Admitting Diagnosis Rectal Pain Readmission No Living Arrangements Parent Support Systems Parent Type of Residence Private residence House type House 2 story Bathrooms on 1st Floor 1-Full Independent with ADL's Yes Independent with Mobility Yes Home Care Services No Caregiver after Discharge Yes Relationship to Patient Parents Mental Status Oriented Anticipated Discharge Plan Post Acute Care Needs None at this time Resources Financial concerns No Transportation issues No Patient/Family concerns No Prescription Plan Yes Anticipated Disposition Facility Type Home Medicare Important Message (SHIRA) Not applicable Met with: Patient and discussed discharge planning, Pt is a 22 y.o., female Patient's PCP is: Dr. Weston Patient's insurance: [employer] Coverage concerns: None Medication coverage/concerns: None Community resources utilized / needed: None Assistance in transportation: Not needed. Identification of any specific education / training: None Barriers to Discharge / Alternative housing needed: None Anticipated DCP: Home onver jeff Transaction, Provider Unknown - 11/10/2017 5:50 AM PDT Nurse Progress Note by Alyse Andrea RN at 11/10/17549 Author: Alyse Andrea RN Service: (none) Author Type: Registered Nurse Filed: 11/10/17552 Date of Service: 11/10/17549 Status: Signed Pricing Specialist: Alyse Andrea RN (Registered Nurse) Pt made NPO at 0000 in prep for surgery of perirectal abscess. Pain levels 6-7/10 with relief from PRN Morphine which is successful in lowering pain x 2. She continues infusing NS to Mediport, IV antibiotics given during this shift x 2. No other complications noted during this shift. Alyse ISIDRO onver jeff Transaction, Provider Unknown - 11/09/2017 6:06 PM PDT Progress Notes by Marilia Andrews RPH at 11/09/171805 Author: Marilia Andrews RPH Service: Pharmacy Author Type: Pharmacist Filed: 11/09/171805 Date of Service: 11/09/171805 Status: Signed Pricing Specialist: Marilia Andrews RPH (Pharmacist) Clinical Pharmacy Note: Renal Monitoring Shannan White 22 y.o. female Ht Readings from Last 1 Encounters: 11/09/17 1.619 m (5' 3.75") Wt Readings from Last 1 Encounters: 11/09/17 54 kg (119 lb 0.8 oz) Serum creatinine: 0.27 mg/dL (L) 11/09/17 1350 Estimated creatinine clearance: 276.3 mL/min (A) Pharmacy dosing for renal function per Dr. Rommel Fulton, DO. Currently, there are no medications needing to be adjusted. Pharmacy will continue to monit or for changes in medication orders and in renal function and adjust accordingly. Marilia Andrews, SamreenD 11/09/2017 6:06 PM docume nted in this encounter H&P Notes Juan Zepeda MD - 11/10/2017 11:37 AM PDTFormatting of this note might be different f rom the original. H&P by Juan Zepeda MD at 11/10/17 9615 Author: Juan Zepeda MD Service: General Surgery Author Type: Physician Filed: 11/10/17 1409 Date of Service: 11/10/17 1131 Status: Signed Pricing Specialist: Juan Zepeda MD (Physician) [facility] Service: Colon & Rectal Surgery Admission History & Physical Date of Admission: 11/09/2017 Reason for Admission: perianal abscess History Obtained From: patient, chart review CHIEF COMPLAINT: Anorectal abscess HISTORY OF PRESENT ILLNESS The patient is 22 y.o. female with significant with a history of Crohn's disease. She gets her treatment with GI in [place]. She presents to ED with complaints of anal pain. Started a bout a week ago, with a constant course since that time. 05/03. Moving around, or pressure m akes the patient's symptoms worse. Last flare about 1 year ago.The patient also complains of bowel changes, stating that her d iarrhea has suddenly changed to hard stool. Pt was evaluated at urgent care for same, and wa s found to have a "creamy colored discharge" coming from the rectum. Patient denies fevers, or any other Sx at this time. Care prior to arrival consisted of ext ra strength Tylenol during the day and Hydrocodone at night, with no relief. Denies h/o fiss ures or fistula. Pt states that she runs chronically low in the 90's or low 100's. Denies h/ o abdominal surgeries. Active comorbid conditions include: - anemia - anxiety REVIEW OF SYSTEMS Review of Systems Negative except what mentioned in the H and P Past Medical History Diagnosis Date Anemia Crohn disease (HCC) Methicillin resistant Staphylococcus aureus infection Other chronic pain Past Surgical History Procedure Laterality Date COLONOSCOPY No Known Allergies Prescriptions Prior to Admission Medication Sig Dispense Refill Last Dose HYDROcodone-acetaminophen (NORCO) 5-325 MG per tablet Take 1 tablet by mouth every 6 (s ix) hours as needed for Pain. 11/09/2017 budesonide (ENTOCORT EC) 3 MG delayed replease capsule take 3 capsules by mouth once da sharon for 1 MONTH then take 2 capsu... (REFER TO PRESCRIPTION NOTES). 0 11/07/2017 Cholecalciferol (VITAMIN D3) 63642 units CAPS take 1 capsule by mouth every week for 3 MONTHS 0 Vedolizumab (ENTYVIO IV) Inject into the vein every 30 (thirty) days. 10/18/2017 History reviewed. No pertinent family history. Social History Social History Marital status: Single Spouse name: N/A Number of children: N/A Years of education: N/A Occupational History Not on file. Social History Main Topics Smoking status: Never Smoker Smokeless tobacco: Never Used Alcohol use No Drug use: No Sexual activity: Not on file Other Topics Concern Not on file Social History Narrative No narrative on file PHYSICAL EXAM Vital Signs: BP 92/56 (BP Location: Right upper arm) | Pulse 87 | Temp 98.6 F (37 C) (Oral) | Res p 14 | Ht 1.626 m (5' 4") | Wt 54 kg (119 lb 0.8 oz) | LMP 10/20/2017 | SpO2 99% | [place] stfeeding? No | BMI 20.43 kg/m Physical Exam Alert oriented 3. Breathing comfortably not in respiratory distress Normal heart rate and rhythm. Abdomen soft and nontender. Right anterior tender swelling with the purulent drainage coming through the anus DATA CBC: Lab Results Component Value Date WBC 4.30 11/10/2017 RBC 3.33 (L) 11/10/2017 HGB 9.1 (L) 11/10/2017 HCT 26.8 (L) 11/10/2017 MCV 80.5 11/10/2017 MCH 27.2 11/10/2017 MCHC 33.8 11/10/2017 RDW 58.2 (H) 11/10/2017 PLT 436 (H) 11/10/2017 MPV 6.4 11/10/2017 DIFFTYPE AUTOMATED 11/10/2017 CMP: Lab Results Component Value Date NA 141 11/10/2017 K 4.1 11/10/2017 CL 106 11/10/2017 CO2 26 11/10/2017 ANIONGAP 13 11/10/2017 GLUF 95 11/10/2017 BUN 4 (L) 11/10/2017 CREATININE 0.3 (L) 11/10/2017 BCR 13 11/10/2017 CA 7.9 (L) 11/10/2017 PROT 5.6 (L) 11/09/2017 ALB 1.7 (L) 11/09/2017 GLOB 3.9 11/09/2017 BILITOT 0.2 11/09/2017 ALP 113 11/09/2017 AST 9 (L) 11/09/2017 ALT 10 11/09/2017 EGFR >60 11/10/2017 PROBLEM LIST Active Problems: * No active hospital problems. * ASSESSMENT & PLAN Is a very pleasant 22-year-old lady with the history of Crohn's colitis mainly involving th e terminal ileum and part of the colon. She is currently on biologic treatment but develope d suppurative anorectal disease and is here for incision and drainage possible seton. Proced ure options, risks, benefits and alternatives reviewed with patient who express(es) understa nding. Any and all questions were answered to their satisfaction. Disposition: Code Status: Full Code Primary Care Physician: Georgia Zepeda MD 11/10/2017 documented in this encounter ED Notes Conversion Transaction, Provider Unknown - 11/09/2017 5:43 PM PDTFormatting of this note m ight be different from the original. ED Notes by Yany Stovall RN at 11/09/171742 Author: Yany Stovall RN Service: (none) Author Type: Registered Nurse Filed: 11/09/171742 Date of Service: 11/09/171742 Status: Signed Pricing Specialist: Yany Stovall RN (Registered Nurse) Floor rn en route for pt Yany Stovall RN 11/09/171742 onver jeff Transaction, Provider Unknown - 11/09/2017 3:45 PM PDT ED Notes by Yany Stovall RN at 11/09/17 1545 Author: Yany Stovall RN Service: (none) Author Type: Registered Nurse Filed: 11/09/17 1546 Date of Service: 11/09/171544 Status: Signed Pricing Specialist: Yany Stovall RN (Registered Nurse) Family at bedside. Yany Stovall RN 11/09/17 1546 onver jeff Transaction, Provider Unknown - 11/09/2017 3:45 PM PDT ED Notes by Yany Stovall RN at 11/09/17 154 Author: Yany Stovall RN Service: (none) Author Type: Registered Nurse Filed: 11/09/17 1545 Date of Service: 11/09/171544 Status: Signed Pricing Specialist: Yany Stovall RN (Registered Nurse) Patient is resting comfortably. Yany Stovall RN 11/09/17 1545 onver jeff Transaction, Provider Unknown - 11/09/2017 2:26 PM PDT ED Notes by Yany Stovall RN at 11/09/17 1426 Author: Yany Stovall RN Service: (none) Author Type: Registered Nurse Filed: 11/09/17 1426 Date of Service: 11/09/171425 Status: Signed Pricing Specialist: Yany Stovall RN (Registered Nurse) Family at bedside. Yany Stovall RN 11/09/17 1426 onver jeff Transaction, Provider Unknown - 11/09/2017 2:26 PM PDT ED Notes by Yany Stovall RN at 11/09/17 1426 Author: Yany Stovall RN Service: (none) Author Type: Registered Nurse Filed: 11/09/17 1426 Date of Service: 11/09/171425 Status: Signed Pricing Specialist: Yany Stovall RN (Registered Nurse) Patient is resting comfortably. Yany Stoavll RN 11/09/17 1429 onver jeff Transaction, Provider Unknown - 11/09/2017 1:56 PM PDT ED Notes by Yany Stovall RN at 11/09/17 1350 Author: Yany Stovall RN Service: (none) Author Type: Registered Nurse Filed: 11/09/175 Date of Service: 11/09/171355 Status: Signed Pricing Specialist: Yany Stovall RN (Registered Nurse) Port to l anterior chest wall accessed x 1 attempt using aseptic technique with size 20 1 i nch obando needle. Good blood return. biopatch applied under insertion site and dressed using aseptic technique as per protocol. Blood drawn and sent to lab Yany Stovall RN 11/09/17 1772 rofts , Rommel Patel DO - 11/09/2017 1:42 PM PDTFormatting of this note might be different from t he original. ED Provider Notes by Rommel Fulton DO at 11/09/17 1340 Author: Rommel Fulton DO Service: Emergency Department Author Type: Physician Filed: 11/09/17 1249 Date of Service: 11/09/17 1342 Status: Signed Pricing Specialist: Rommel Fulton DO (Physician) [facility] Department of Emergency Medicine 1:47 PM History of Present Illness Patient Identification Shannan White is a 22 y.o. female. Patient information was obtained from patient. History/Exam limitations: none. Patient presented to the Emergency Department by: Car Chief Complaint Chief Complaint Patient presents with Rectal Pain rectal pain for 1 week; hx of Crohn's; has been having formed, hard stools with blood mishel ts over last 2 weeks per report; also has RLQ pain, on rectal exam reporting creamy colored discharge coming from rectum; The patient presents to ED with complaints of rectal pain. Onset of symptoms was 1 week ago , with a constant course since that time. The symptoms are described to be of 6/10 severity when lying in certain positions, 10/10 otherwise. The patient describes the quality and loca tion of the symptoms as the following: rectal pain. Lying in certain positions Makes the pa tient's symptoms better. Urinating, moving around, or pressure makes the patient's symptoms worse. Reports h/o Crohn's disease and states that she has had a flare-up for 1 year. The p atient also complains of bowel changes, stating that her diarrhea has suddenly changed to palumbo rd stool. Pt was evaluated at urgent care for same, and was found to have a "creamy colored discharge" coming from the rectum. Patient denies fevers, or any other Sx at this time. Care prior to arrival consisted of extra strength Tylenol during the day and Hydrocodone at nigh t, with no relief. Denies h/o fissures or fistula. Pt states that she runs chronically low i n the 90's or low 100's. Denies h/o abdominal surgeries. PCP: Georgia Carlson Past Medical History Diagnosis Date Anemia Crohn disease (HCC) Methicillin resistant Staphylococcus aureus infection Other chronic pain Past Surgical History Procedure Laterality Date COLONOSCOPY Prior to Admission medications Medication Sig Start Date End Date Taking? Authorizing Provider budesonide (RINOCORT AQUA) 32 MCG/ACT nasal spray 1 spray by Nasal route daily. Historic al Provider HYDROcodone-acetaminophen (NORCO) 10-325 MG per tablet Take 1 tablet by mouth every 6 (six) hours as needed for Pain. Historical Provider Vedolizumab (ENTYVIO IV) Inject into the vein once a week. Historical Provider No Known Allergies Social History Social History Marital status: Single Spouse name: N/A Number of children: N/A Years of education: N/A Occupational History Not on file. Social History Main Topics Smoking status: Never Smoker Smokeless tobacco: Never Used Alcohol use No Drug use: No Sexual activity: Not on file Other Topics Concern Not on file Social History Narrative No narrative on file History reviewed. No pertinent family history. Review of Systems Constitutional: Negative for fever, chills Throat: Negative for sore throat CV/Resp: Negative for chest pain, xxrylvmeu-ae-ooagyd, cough GI: Positive for rectal pain, diarrhea, bowel change to hard stool, rectal discharge Negative for abdominal pain, nausea, vomiting : Negative for urinary problems Musculoskeletal: Negative for back pain, joint pain Skin: Negative for rash Neuro/Psych: Negative for headache All other systems reviewed and negative except as noted. Physical Exam BP 101/67 (BP Location: Left upper arm) | Pulse 125 | Temp 97.2 F (36.2 C) (Temporal) | Resp 22 | Wt 54 kg (119 lb 0.8 oz) | SpO2 100% | BMI 20.60 kg/m Vital signs interpretation: tachycardic, tachypneic, otherwise WNL Pulse Oximetry interpretation: Normal General: Alert, in no apparent distress Eyes: Normal inspection ENT: Ears normal Pharynx normal Cardiovascular: Rate and rhythm normal No murmurs Respiratory: Breath sounds normal bilaterally No rales, wheezing or rhonchi Abdomen: Very mild lower abd tenderness Soft, non-distended No guarding or rebound Rectal exam: Pain and swelling in the perirectal area, R sided. left side is unremarkable. No erythema. Possible purulent drainage on rectal exam. Guaiac negative. No fissure identifi ed at this time. No hemorrhoids. Skin: Color normal Warm and dry No rash Neuro: Alert, no AMS Medical Decision Making and Emergency Department Course ED Department Course Patient presents to ED with complaints of rectal pain. On exam the patient has Pain and swe lling in the perirectal area, L sided. R side is unremarkable. No erythema. Possible purulen t drainage on rectal exam. Guaiac negative. No fissure identified at this time. No hemorrhoi ds. My DDx includes, but is not limited to: perirectal abscess, Crohn's flare. I do not thin k she has a hemorrhoid. I do not see an active fistula, although it is possible that it is d eeper in the tissue. Will give Zofran, fentanyl, order CT, labs, urinalysis, and reevaluate the patient. 2:50 PM Pt has decreased creatinine (0.27), decreased calcium (7.9), decreased lipase (31), elevated CRP (13.0). 4:12 PM Discussed patient's case with Dr. Wright. Wants me to call Dr. Zepeda instead. 4:[address] Zepeda. Awaiting reply. 4:20 PM Discussed patient's case with Dr. Zepeda. He said to admit her, put her on Cipro and Flagyl, put in transition orders, and keep the pt NPO for now. He will try to put her o n schedule for surgery tonight, if not, will schedule her for the morning. He states that if he don't hear back from him, to have floor nurse call to see if the pt is scheduled for ton ight or next morning. If the patient is scheduled for next morning, she is to be NPO after m idnight. 4:26 PM Patient reevaluation. I discussed all ED findings, my clinical impressions, and latia n for admission with patient. Patient understands and agrees to plan. She knows that she is supposed to stay NPO. All patient questions and concerns addressed at this time. Medications sodium chloride 0.9 % flush 10 mL (10 mLs Intravenous Given 11/09/17 1414) fentaNYL (SUBLIMAZE) injection 50 mcg (50 mcg Intravenous Given 11/09/17 1414) metroNIDAZOLE (FLAGYL) IVPB 500 mg (not administered) ciprofloxacin (CIPRO) IVPB 400 mg (not administered) ondansetron (ZOFRAN) injection 4 mg (4 mg Intravenous Given 11/09/17 1413) iopamidol (ISOVUE-300) 61 % injection 100 mL (70 mLs Intravenous Given 11/09/17 1525) Records Reviewed Old medical records. Nursing notes. No prior ER visits Pt has a h/o Crohn's disease and anemia. Laboratory Evaluation Results Procedure Component Value Ref Range Date/Time Blood Culture Set 2 [[id number]] Collected: 11/09/17 1514 Order Status: Sent Specimen: Blood from Blood Updated: 11/09/17 1533 Comprehensive metabolic panel [[id number]] (Abnormal) Collected: 11/09/17 1350 Order Status: Completed Specimen: Blood Updated: 11/09/17 1443 SODIUM 138 135 - 145 mmol/L POTASSIUM 3.9 3.5 - 4.9 mmol/L CHLORIDE 103 99 - 109 mmol/L CO2 30 23 - 32 mmol/L ANION GAP AGAP 9 5 - 20 mmol/L GLUCOSE 96 65 - 99 mg/dL BUN 7 (L) 8 - 25 mg/dL CREATININE 0.27 (L) 0.50 - 1.00 mg/dL BUN/CREAT 26 CALCIUM 7.9 (L) 8.5 - 10.5 mg/dL TOTAL PROTEIN 5.6 (L) 6.3 - 8.2 g/dL Albumin 1.7 (L) 3.6 - 5.0 g/dL GLOBULIN 3.9 1.3 - 4.9 g/dL A/G 0.4 (L) 1.0 - 2.4 TBIL 0.2 0.1 - 1.5 mg/dL ALK PHOS 113 35 - 115 U/L AST 9 (L) 10 - 45 U/L ALT 10 10 - 65 U/L EGFR >60 >60 mL/min/1.73m2 Lipase [[id number]] (Abnormal) Collected: 11/09/171349 Order Status: Completed Specimen: Blood Updated: 11/09/17 1443 LIPASE 31 (L) 73 - 393 U/L C-reactive protein [[id number]] (Abnormal) Collected: 11/09/171349 Order Status: Completed Specimen: Blood Updated: 11/09/17 1443 CRP 13.0 (H) <0.5 mg/dL HCG, QUALitative [[id number]] Collected: 11/09/171349 Order Status: Completed Specimen: Blood Updated: 11/09/17 1443 TEST,SERUM NEGATIVE NEGATIVE Urinalysis (reflex to micro/reflex to culture) [[id number]] (Abnormal) Collected: 11/09 1424 Order Status: Completed Specimen: Urine, Clean Catch Updated: 11/09/17 1441 COLOR UA YELLOW CLARITY CLEAR Specific [place], UA 1.020 1.002 - 1.030 LEUKOCYTE ESTERASE TRACE (A) NEGATIVE NITRITE NEGATIVE NEGATIVE UROBILINOGEN 2.0 (H) <1.1 mg/dL PROTEIN NEGATIVE NEGATIVE mg/dL PH,URINE 6.0 5.0 - 8.0 BLOOD NEGATIVE NEGATIVE KETONES TRACE (A) NEGATIVE mg/dL BILIRUBIN NEGATIVE NEGATIVE GLUCOSE NEGATIVE NEGATIVE mg/dL WBC 3-5 0 - 5 /hpf RBC 0-2 0 - 5 /hpf BACTERIA NONE SEEN NONE SEEN EPITHELIAL 26-49 /lpf Mucus, UA 1+ CBC with differential [[id number]] (Abnormal) Collected: 11/09/171349 Order Status: Completed Specimen: Blood Updated: 11/09/17 1436 WBC 5.31 3.80 - 11.00 K/uL RBC 4.21 3.70 - 5.10 M/uL HGB 10.9 (L) 11.3 - 15.5 g/dL HCT 33.9 (L) 34.0 - 46.0 % MCV 80.5 80.0 - 100.0 fl MCH 25.8 (L) 27.0 - 34.0 pg MCHC 32.0 32.0 - 35.5 g/dL RDW SD 56.9 (H) 37 - 53 fl PLT 512 (H) 150 - 400 K/uL MPV 6.4 fl DIFF TYPE AUTOMATED NEUTROPHILS 73.44 % LYMPHOCYTES 16.20 % MONOCYTES 9.57 % EOSINOPHILS 0.50 % BASOPHILS 0.29 % NEUTROPHILS ABS 3.90 1.90 - 7.40 K/uL LYMPHOCYTES ABS 0.86 (L) 1.00 - 3.90 K/uL MONOCYTES ABS 0.51 0.00 - 0.80 K/uL EOSINOPHILS ABS 0.03 0.00 - 0.50 K/uL BASOPHILS ABS 0.02 0.00 - 0.10 K/uL MORPHOLOGY NORMAL PLT MORPH Platelet Estimate INCREASED Blood Culture Set 1 [[id number]] Collected: 11/09/17 1350 Order Status: Sent Specimen: Blood from Blood Updated: 11/09/17 1412 I personally reviewed the lab results and they have been posted to the chart. Pertinent po sitive and negative findings have been addressed appropriately. Radiology and EKG Evaluation Imaging Results CT pelvis with IV contrast (Final result) Result time 11/09/17 15:51:31 Final result by Titus Garcia MD (11/09/17 15:51:31) Impression: 1. Right-sided perianal abscess measuring 2.2 x 3.2 cm. 2. Thickening of the small bowel loops and terminal ileum consistent with known Crohn's di sease. Narrative: SHANNAN WHITE [address] PELVIS W CONTRAST 11/09/2017 3:34 PM HISTORY: Crohn's disease. Rectal pain. COMPARISON: June 13, 2013 TECHNIQUE: 5-mm axial images were acquired through the pelvis. Oral Contrast: Readi-Cat IV contrast: 100 mL IsoVue 300 Automated exposure control done to minimize dose. FINDINGS: Right sided perianal abscess () measuring 2.2 x 3.2 cm. Thickening of the small bowel loops and terminal ileum consistent with known Crohn's diseas e. (, 5B/) Mild ascitic fluid of the pouch of [place]. No acute abnormality of the uterus or ovaries by this technique. No colonic dilation or colonic wall thickening of the visualized portions of the colon with in the pelvis. No pelvic adenopathy. ED Diagnosis Final diagnosis Perianal abscess Disposition: ED Disposition ED Disposition Condition Comment Admit/Observation Bed request special needs: None Diagnosis?: Perianal abscess Procedures Additional Documentation Procedures Attending Provider Note: IRommel DO personally performed the services described in this documentation, as scribed by Gumaro Kim in my presence, and it is both accurate an d complete. Chart Reviewed and Completed: 11/09/2017 4:32 PM Scribe: Irish Harper, scribing for and in the presence of Rommel Fulton DO. Signed by: Irish Alvarez 11/09/2017 4:32 PM Rommel Fulton DO 11/09/17 1740 onversion Trans action, Provider Unknown - 11/09/2017 1:28 PM PDT ED Notes by Yany Stovall RN at 11/09/17 1328 Author: Yany Stovall RN Service: (none) Author Type: Registered Nurse Filed: 11/09/17 1335 Date of Service: 11/09/178 Status: Signed Pricing Specialist: Yany Stovall RN (Registered Nurse) 2 patient identifiers checked, patient gowned, side rails up x1 or x2. ID band placed on p atient, call light instructed on and given to patient. Yany Stovall RN 11/09/17 1331 docume nted in this encounter Miscellaneous Notes Op Note - Juan Zepeda MD - 11/10/2017 12:31 PM PDTFormatting of this note might be d ifferent from the original. Op Note by Juan Zepeda MD at 11/10/17 1231 Author: Juan Zepeda MD Service: General Surgery Author Type: Physician Filed: 11/10/17 1413 Date of Service: 11/10/171230 Status: Signed Pricing Specialist: Juan Zepeda MD (Physician) [facility] Service: Colon & Rectal Surgery Operative Note Pre-operative Diagnosis: Perianal abscess, Crohn's disease Post-operative Diagnosis: Same Procedure(s): Incision and drainage of perianal abscess with placement of transsphincteric right anterior fistula in ano seton. Rectal biopsy. Surgeon: Juan Zepeda MD School Standards Coach(s): none Anesthesia: Monitor Anesthesia Care and Local anesthesia Estimated Blood Loss: Less Than 10 ml (Minimal) Other: Specimens: rectal mucosa biopsy Indications: See pre-operative history and physical. Findings: Right anterior ischiorectal abscess, internal opening in right anterior midline at dentate line. Complications: None acute Description of Procedure: Patient was brought back to the operating room was placed in the prone jackknife position under monitored anesthesia care and local anesthesia was given are a was prepped and draped in usual sterile fashion inspection of the rectal mucosa did not sh ow any visible active disease but a mucosal biopsy was taken with a forceps. The internal o pening was visible at the right anterior at the dentate line with granulation tissue at the internal opening that tracked into the right anterior large ischial rectal abscess this was a drain by unroofing the abscess with the Bovie and the abscess cavity was pretty large exte nding to the right lateral ischiorectal space just outside the sphincter and then extending deep and anterior into the rectovaginal septum but not through into the vagina. A vessel lo op seton was placed and was secured to itself with 2-0 silk. Local anesthesia infiltrated p atient tolerated the procedure well. Condition: Stable Juan Zepeda MD 11/10/2017 lan of Care - Con version Transaction, Provider Unknown - 11/10/2017 9:08 AM PDT Plan of Care by Vane Rincon RN at 11/10/17907 Author: Vane Rincon RN Service: (none) Author Type: Registered Nurse Filed: 11/10/17908 Date of Service: 11/10/17907 Status: Signed Pricing Specialist: Vane Rincon RN (Registered Nurse) Problem: Pain Goal: Patient's pain/discomfort is manageable Assess and monitor patient's pain using appropriate pain scale. Collaborate with interdisci plinary team and initiate plan and interventions as ordered. Re-assess patient's pain level approximately 1-2 hours after pain management intervention. Premedicate as needed. Outcome: Progressing Pt denies pain at this time. Problem: Safety Goal: Patient will be injury free during hospitalization Assess and monitor vitals signs, neurological status including level of consciousness and o rientation. Assess patient's risk for falls and implement fall prevention plan of care and i nterventions per hospital policy. Ensure arm band on, uncluttered walking paths in room, adequate room lighting, call light a nd overbed table within reach, bed in low position, wheels locked, side rails up per policy, and non-skid footwear provided. Outcome: Progressing Assist with ambulation as needed. Encourage pt to call prn lan o f Care - Conversion Transaction, Provider Unknown - 11/09/2017 11:02 PM PDTFormatting of thi s note might be different from the original. Plan of Care by Alyse Andrea RN at 11/09/172301 Author: Alyse Andrea RN Service: (none) Author Type: Registered Nurse Filed: 11/09/172301 Date of Service: 11/09/172301 Status: Signed Pricing Specialist: Alyse Andrea RN (Registered Nurse) Problem: Pain Goal: Patient's pain/discomfort is manageable Assess and monitor patient's pain using appropriate pain scale. Collaborate with interdisci plinary team and initiate plan and interventions as ordered. Re-assess patient's pain level approximately 1-2 hours after pain management intervention. Premedicate as needed. Outcome: Progressing Pain is well controlled with PRN morphine. Pt is able to monitor pain levels with appropria te pain scale. Call light is within reach allowing pt to request for assistance. lan o f Care - Conversion Transaction, Provider Unknown - 11/09/2017 6:41 PM PDTFormatting of thi s note might be different from the original. Plan of Care by Viola Montemayor RN at 11/09/171840 Author: Viola Montemayor RN Service: (none) Author Type: Registered Nurse Filed: 11/09/171840 Date of Service: 11/09/171840 Status: Signed Pricing Specialist: Viola Montemayor RN (Registered Nurse) Pain Patient's pain/discomfort is manageable Progressing Resting in bed in no distress iscel laneous - Conversion Transaction, Provider Unknown - 11/09/2017 6:08 PM PDTFormatting of th is note might be different from the original. Medication History by Lynn Chávez RPH at 11/09/171807 Author: Lynn Chávez RPH Service: Pharmacy Author Type: Pharmacist Filed: 11/09/171807 Date of Service: 11/09/171807 Status: Signed Pricing Specialist: Lynn Chávez RPH (Pharmacist) Rx Admission Medication History Note I have reviewed the medication history for appropriate doses obtained by: Pharmacy Medicat ion History Tentering Machine Feeder. After reviewing the home medication list : I agree with the home medication list. Please Review and Order Home Medications as necessary. Thanks Lynn Chávez RPH 11/09/2017 6:08 PM >> Charlene Tabor CPhT 11/09/2017 18:00 Rx Medication History Tentering Machine Feeder Note Patients Preferred Pharmacy has been updated in EPIC: yes [id number] - [place], [place] - [address] [facility] [address] [facility] [address] [facility] - [place], [place] - [address] [place] [address] Patients Allergies have been updated and marked as reviewed: yes Patient has no known allergies. The following changes were made to the allergy list (if any): none Medication History provided by: Patient and Outside Pharmacy Follow-up Issues: None - Pending Pharmacist Review High Risk Medications (dual source verification needed): Scheduled Narcotics Changes made to the medication list include: Flagged for deletion: Budesonide nasal spray; not taking Reliability of information obtained: FAIRLY UNRELIABLE Additional Comments: patient was not able to verify strength of norco I called pharmacy [facility] filled 02/02/17 of the 5-325mg. She stopped taking the budesonide because of being distra cted of the pain. Medication history has been completed: Charlene Tabor CPhT 11/09/2017 5:57 PM docume nted in this encounter Plan of Treatment Not on filedocumented as of this encounter Procedures + +--------+ + + + | Procedure Name | Priori | Date/Time | Associated Diagnosis | Comments | | | ty | | | | + +--------+ + + + | EXTERNAL LAB: CBC | Routin | 11/10/2017 | | Results for this | | | e | 4:43 AM | | procedure are in the | | | | PDT | | results section. | + +--------+ + + + | BASIC METABOLIC | Routin | 11/10/2017 | | Results for this | | PANEL | e | 4:43 AM | | procedure are in the | | | | PDT | | results section. | + +--------+ + + + | TISSUE REQUEST FOR | Routin | 11/10/2017 | | Results for this | | PATHOLOGY (NON-ORD) | e | 12:00 AM | | procedure are in the | | | | PDT | | results section. | + +--------+ + + + | MRSA NAAT | Timed | 11/09/2017 | | Results for this | | | | 7:25 PM | | procedure are in the | | | | PDT | | results section. | + +--------+ + + + | CT PELVIS W | Routin | 11/09/2017 | | Results for this | | CONTRAST | e | 3:34 PM | | procedure are in the | | | | PDT | | results section. | + +--------+ + + + | CULTURE, BLOOD, 2ND | STAT | 11/09/2017 | | Results for this | | SPECIMEN (NON-ORD) | | 3:14 PM | | procedure are in the | | | | PDT | | results section. | + +--------+ + + + | URINALYSIS, REFLEX | Routin | 11/09/2017 | | Results for this | | MICROSCOPIC AND/OR | e | 2:24 PM | | procedure are in the | | CULTURE | | PDT | | results section. | + +--------+ + + + | EXTERNAL LAB: CBC | Routin | 11/09/2017 | | Results for this | | | e | 1:50 PM | | procedure are in the | | | | PDT | | results section. | + +--------+ + + + | CULTURE, BLOOD | STAT | 11/09/2017 | | Results for this | | | | 1:50 PM | | procedure are in the | | | | PDT | | results section. | + +--------+ + + + | C-REACTIVE PROTEIN | Routin | 11/09/2017 | | Results for this | | | e | 1:50 PM | | procedure are in the | | | | PDT | | results section. | + +--------+ + + + | , SERUM, | Routin | 11/09/2017 | | Results for this | | QUAL | e | 1:50 PM | | procedure are in the | | | | PDT | | results section. | + +--------+ + + + | LIPASE | Routin | 11/09/2017 | | Results for this | | | e | 1:50 PM | | procedure are in the | | | | PDT | | results section. | + +--------+ + + + | COMPREHENSIVE | Routin | 11/09/2017 | | Results for this | | METABOLIC PANEL | e | 1:50 PM | | procedure are in the | | | | PDT | | results section. | + +--------+ + + + documented in this encounter Results External Lab: CBC (11/10/2017 4:43 AM PDT) + + + + + + | Component | Value | Ref Range | Performed | Pathologist | | | | | At | Signature | + + + + + + | WBC | 4.30 | 3.80 - 11.00 | EXTERNAL | | | | | K/uL | LAB | | + + + + + + | Non- | 3.33 (L) | 3.70 - 5.10 | EXTERNAL | | | Red Blood | | M/uL | LAB | | | Cells | | | | | | Counted | | | | | + + + + + + | Hemoglobin | 9.1 (L) | 11.3 - 15.5 | EXTERNAL | | | | | g/dL | LAB | | + + + + + + | Hematocrit, | 26.8 (L) | 34.0 - 46.0 % | EXTERNAL | | | POC | | | LAB | | + + + + + + | MCV | 80.5 | 80.0 - 100.0 fl | EXTERNAL | | | | | | LAB | | + + + + + + | MCH | 27.2 | 27.0 - 34.0 pg | EXTERNAL | | | | | | LAB | | + + + + + + | MCHC | 33.8 | 32.0 - 35.5 | EXTERNAL | | | | | g/dL | LAB | | + + + + + + | RDW-CV | 58.2 (H) | 37 - 53 fl | EXTERNAL | | | | | | LAB | | + + + + + + | Platelet | 436 (H) | 150 - 400 K/uL | EXTERNAL | | | Count | | | LAB | | | Plasma | | | | | + + + + + + | MPV | 6.4 | fl | EXTERNAL | | | | | | LAB | | + + + + + + | Differentia | AUTOMATED | | EXTERNAL | | | l Type | | | LAB | | + + + + + + | % Segmented | 71.59 | % | EXTERNAL | | | | | | LAB | | | Neutrophils | | | | | + + + + + + | % | 19.97 | % | EXTERNAL | | | Lymphocytes | | | LAB | | + + + + + + | % Monocytes | 7.69 | % | EXTERNAL | | | | | | LAB | | + + + + + + | % | 0.56 | % | EXTERNAL | | | Eosinophils | | | LAB | | + + + + + + | % Basophils | 0.19 | % | EXTERNAL | | | | | | LAB | | + + + + + + | Absolute | 3.08 | 1.90 - 7.40 | EXTERNAL | | | Segmented | | K/uL | LAB | | | Neutrophils | | | | | + + + + + + | Absolute | 0.86 (L) | 1.00 - 3.90 | EXTERNAL | | | Lymphocytes | | K/uL | LAB | | + + + + + + | Absolute | 0.33 | 0.00 - 0.80 | EXTERNAL | | | Monocytes | | K/uL | LAB | | + + + + + + | Absolute | 0.02 | 0.00 - 0.50 | EXTERNAL | | | Eosinophils | | K/uL | LAB | | + + + + + + | Absolute | 0.01 | 0.00 - 0.10 | EXTERNAL | | | Basophils | | K/uL | LAB | | + + + + + + | RBC | 1+Comment: ANISONORMAL | | EXTERNAL | | | Morphology | PLT MORPHTesting | | LAB | | | | performed at [facility], [address] | | | | | [address], | | | | | | [place] [address] | | | | | | | | | | + + + + + + + + | Specimen | + + | Blood specimen | | (specimen) | + + + +---------+ + + | Performing | Address | City/State/Zipcode | Phone Number | | Organization | | | | + +---------+ + + | EXTERNAL LAB | | | | + +---------+ + + Basic Metabolic Panel (11/10/2017 4:43 AM PDT) + + + + + + | Component | Value | Ref Range | Performed | Pathologist | | | | | At | Signature | + + + + + + | Na | 141 | 135 - 145 | EXTERNAL | | | | | mmol/L | LAB | | + + + + + + | K | 4.1 | 3.5 - 4.9 | EXTERNAL | | | | | mmol/L | LAB | | + + + + + + | Cl | 106 | 99 - 109 mmol/L | EXTERNAL | | | | | | LAB | | + + + + + + | CO2 | 26 | 23 - 32 mmol/L | EXTERNAL | | | | | | LAB | | + + + + + + | Anion Gap | 13 | 5 - 20 mmol/L | EXTERNAL | | | | | | LAB | | + + + + + + | Glucose, | 95 | 65 - 99 mg/dL | EXTERNAL | | | Fasting | | | LAB | | + + + + + + | BUN | 4 (L) | 8 - 25 mg/dL | EXTERNAL | | | | | | LAB | | + + + + + + | Creatinine | 0.3 (L) | 0.50 - 1.00 | EXTERNAL | | | | | mg/dL | LAB | | + + + + + + | BUN/Creatin | 13 | | EXTERNAL | | | ine Ratio | | | LAB | | + + + + + + | Calcium | 7.9 (L) | 8.5 - 10.5 | EXTERNAL | | | | | mg/dL | LAB | | + + + + + + | Estimated | >60Comment: GFR <60: | mL/min/1.73m2 | EXTERNAL | | | GFR | CHRONIC KIDNEY DISEASE, | | LAB | | | | IF FOUND OVER A 3 MONTH | | | | | | PERIOD.GFR <15: KIDNEY | | | | | | FAILURE.FOR | | | | | | AMERICANS, MULTIPLY THE | | | | | | CALCULATED GFR BY | | | | | | 1.210.Testing performed | | | | | | at [facility], [address] | | | | | [facility], | | | | | | [place] [address] | | | | + + + + + + + + | Specimen | + + | Blood specimen | | (specimen) | + + + +---------+ + + | Performing | Address | City/State/Zipcode | Phone Number | | Organization | | | | + +---------+ + + | EXTERNAL LAB | | | | + +---------+ + + Tissue Request For Pathology (11/10/2017 12:00 AM PDT) + + | Specimen | + + | Soft tissue sample | | (specimen) | + + + + + | Narrative | Performed At | + + + | SPECIMEN(S): A RECTAL MUCOSA SPECIMEN SOURCE: A. RECTAL MUCOSA | EXTERNAL LAB | | CLINICAL HISTORY: 11/10/2017 at 1159 H. Rectal abscess. | | | MICROSCOPIC DESCRIPTION: Histologic sections of all submitted blocks | | | are examined by light microscopy. These findings, together with the | | | gross examination, support the pathologic diagnosis. FINAL PATHOLOGIC | | | DIAGNOSIS: Rectal biopsy: - Colonic mucosa with no | | | significant abnormality. See comment. COMMENT: This rectal biopsy | | | shows no features of chronic inflammatory bowel disease, an infectious | | | colitis, ischemia, ulcerative colitis, or collagenous colitis. | | | There is no evidence of a hyperplastic polyp, serrated adenoma, or | | | tubular adenoma. WGR:rrc:C2NR GROSS DESCRIPTION: One specimen is | | | received in one container, labeled with the patient's name: A. | | | Received in formalin designated "rectal mucosa ", consists of 1 | | | yellow-huntley soft tissue fragment that is 0.4 cm in greatest dimension. | | | The specimen is entirely submitted in cassette A1. FM The gross | | | description section of this report has been prepared using a voice | | | recognition system. The report was reviewed for accuracy, however, | | | sound-alike word errors, addition and/or deletions may occur. If | | | there is any question about this report please contact the originating | | | pathologist. PERFORMING LABORATORY: Professional interpretation and | | | technical preparation was performed by [facility] | | | [address] [address] | | | (Plumber Helper: Markus Alex M.D.; [facility]#: [id number]). | | | Diagnostician: Crescencio Freedman MD Pathologist Electronically Signed | | | 11/11/2017 | | + + + + +---------+ + + | Performing | Address | City/State/Zipcode | Phone Number | | Organization | | | | + +---------+ + + | EXTERNAL LAB | | | | + +---------+ + + MRSA NAAT (11/09/2017 7:25 PM PDT) + + | Specimen | + + | | + + + + + | Narrative | Performed At | + + + | SOURCE NARES(NOSE) MRSA | EXTERNAL LAB | | PCR NEGATIVE Testing | | | performed at [facility] [place] [address];[place] [address] | | + + + + +---------+ + + | Performing | Address | City/State/Zipcode | Phone Number | | Organization | | | | + +---------+ + + | EXTERNAL LAB | | | | + +---------+ + + CT Pelvis w Contrast (11/09/2017 3:34 PM PDT) + + | Specimen | + + | | + + + + + | Impressions | Performed At | + + + | 1. Right-sided perianal abscess measuring 2.2 x 3.2 cm. 2. | | | Thickening of the small bowel loops and terminal ileum consistent | | | with known Crohn's disease. | | + + + + + + | Narrative | Performed At | + + + | SHANNAN WHITE 1995 [address] PELVIS W CONTRAST | | | 11/09/2017 3:34 PM HISTORY: Crohn's disease. Rectal pain. | | | COMPARISON: June 13, 2013 TECHNIQUE: 5-mm axial images were | | | acquired through the pelvis. Oral Contrast: Readi-Cat IV contrast: | | | 100 mL IsoVue 300 Automated exposure control done to minimize dose. | | | FINDINGS: Right sided perianal abscess (3/42) measuring 2.2 x 3.2 | | | cm. Thickening of the small bowel loops and terminal ileum | | | consistent with known Crohn's disease. (, ) Mild ascitic | | | fluid of the pouch of Brandon. No acute abnormality of the uterus | | | or ovaries by this technique. No colonic dilation or colonic wall | | | thickening of the visualized portions of the colon within the pelvis. | | | No pelvic adenopathy. | | + + + + + | Procedure Note | + + | Edd Oliveira Conversion - 03/07/2019 7:59 AM PDT SHANNAN CINDY years | | FemaleCT PELVIS W CONTRAST11/09/2017 3:34 PM HISTORY: Crohn's disease. Rectal pain. | | COMPARISON: June 13, 2013 TECHNIQUE:5-mm axial images were acquired through the | | pelvis.Oral Contrast: Readi-CatIV contrast: 100 mL IsoVue 300 Automated exposure control | | done to minimize dose. FINDINGS:Right sided perianal abscess (3/42) measuring 2.2 x 3.2 | | cm. Thickening of the small bowel loops and terminal ileum consistent with known | | Crohn's disease. (5B/22, ) Mild ascitic fluid of the pouch of Branodn. No acute | | abnormality of the uterus or ovaries by this technique. No colonic dilation or colonic | | wall thickening of the visualized portions of the colon within the pelvis. No pelvic | | adenopathy. IMPRESSION: 1. Right-sided perianal abscess measuring 2.2 x 3.2 cm.2. | | Thickening of the small bowel loops and terminal ileum consistent with known Crohn's | | disease. | |Oral Contrast: Readi-Cat | |IV contrast: 100 mL IsoVue 300 Automated exposure control done to minimize dose. | | | |FINDINGS: | |Right sided perianal abscess (342) measuring 2.2 x 3.2 cm. | | | |Thickening of the small bowel loops and terminal ileum consistent with known Crohn's diseas e. (, ) | | | |Mild ascitic fluid of the pouch of Brandon. | | | |No acute abnormality of the uterus or ovaries by this technique. | | | |No colonic dilation or colonic wall thickening of the visualized portions of the colon with in the pelvis. | | | |No pelvic adenopathy. | | | |IMPRESSION: | |1. Right-sided perianal abscess measuring 2.2 x 3.2 cm. | |2. Thickening of the small bowel loops and terminal ileum consistent with known Crohn's di sease. | | | | | + + Culture, Blood, 2nd Specimen (11/09/2017 3:14 PM PDT) + + | Specimen | + + | Blood specimen | | (specimen) | + + + + + | Narrative | Performed At | + + + | Specimen Description BLOOD, PERIPHERAL DRAW | EXTERNAL LAB | | SPECIAL REQUESTS LEFT HAND CULTURE | | | NO GROWTH 6 DAYS | | + + + + +---------+ + + | Performing | Address | City/State/Zipcode | Phone Number | | Organization | | | | + +---------+ + + | EXTERNAL LAB | | | | + +---------+ + + Urinalysis, Reflex Microscopic and/or Culture (11/09/2017 2:24 PM PDT) + + + + + + | Component | Value | Ref Range | Performed | Pathologist | | | | | At | Signature | + + + + + + | Color | YELLOW | | EXTERNAL | | | | | | LAB | | + + + + + + | Clarity, | CLEAR | | EXTERNAL | | | Urine | | | LAB | | + + + + + + | Specific | 1.020 | 1.002 - 1.030 | EXTERNAL | | | [place], | | | LAB | | | Urine | | | | | + + + + + + | Leukocyte | TRACE (A) | | EXTERNAL | | | Esterase, | | | LAB | | | Urine | | | | | + + + + + + | Nitrite, | NEGATIVE | | EXTERNAL | | | Urine | | | LAB | | + + + + + + | Urobilinoge | 2.0 (H) | mg/dL | EXTERNAL | | | n, Urine | | | LAB | | + + + + + + | Protein, | NEGATIVE | mg/dL | EXTERNAL | | | Urine | | | LAB | | + + + + + + | pH, Urine | 6.0 | 5.0 - 8.0 | EXTERNAL | | | | | | LAB | | + + + + + + | Blood, | NEGATIVE | | EXTERNAL | | | Urine | | | LAB | | + + + + + + | Ketones | TRACE (A) | mg/dL | EXTERNAL | | | | | | LAB | | + + + + + + | Bilirubin, | NEGATIVE | | EXTERNAL | | | Urine | | | LAB | | + + + + + + | Glucose, | NEGATIVE | mg/dL | EXTERNAL | | | Urine | | | LAB | | + + + + + + | WBC, UA | 3-5 | 0 - 5 /hpf | EXTERNAL | | | | | | LAB | | + + + + + + | RBC, UA | 0-2 | 0 - 5 /hpf | EXTERNAL | | | | | | LAB | | + + + + + + | Bacteria, | NONE SEEN | | EXTERNAL | | | UA | | | LAB | | + + + + + + | Epithelial | 26-49 | /lpf | EXTERNAL | | | Cells | | | LAB | | + + + + + + | Mucus, | 1+Comment: Testing | | EXTERNAL | | | Urine | performed at [facility] | | LAB | | | | [address];[place], [place] | | | | | | [address] | | | | + + + + + + + + | Specimen | + + | | + + + +---------+ + + | Performing | Address | City/State/Zipcode | Phone Number | | Organization | | | | + +---------+ + + | EXTERNAL LAB | | | | + +---------+ + + Culture, Blood (11/09/2017 1:50 PM PDT) + + | Specimen | + + | Blood specimen | | (specimen) | + + + + + | Narrative | Performed At | + + + | Specimen Description BLOOD SPECIAL | EXTERNAL LAB | | REQUESTS SITE NOT GIVEN CULTURE | | | NO GROWTH 6 DAYS | | + + + + +---------+ + + | Performing | Address | City/State/Zipcode | Phone Number | | Organization | | | | + +---------+ + + | EXTERNAL LAB | | | | + +---------+ + + External Lab: CBC (11/09/2017 1:50 PM PDT) + + + + + + | Component | Value | Ref Range | Performed | Pathologist | | | | | At | Signature | + + + + + + | WBC | 5.31 | 3.80 - 11.00 | EXTERNAL | | | | | K/uL | LAB | | + + + + + + | Non- | 4.21 | 3.70 - 5.10 | EXTERNAL | | | Red Blood | | M/uL | LAB | | | Cells | | | | | | Counted | | | | | + + + + + + | Hemoglobin | 10.9 (L) | 11.3 - 15.5 | EXTERNAL | | | | | g/dL | LAB | | + + + + + + | Hematocrit, | 33.9 (L) | 34.0 - 46.0 % | EXTERNAL | | | POC | | | LAB | | + + + + + + | MCV | 80.5 | 80.0 - 100.0 fl | EXTERNAL | | | | | | LAB | | + + + + + + | MCH | 25.8 (L) | 27.0 - 34.0 pg | EXTERNAL | | | | | | LAB | | + + + + + + | MCHC | 32.0 | 32.0 - 35.5 | EXTERNAL | | | | | g/dL | LAB | | + + + + + + | RDW-CV | 56.9 (H) | 37 - 53 fl | EXTERNAL | | | | | | LAB | | + + + + + + | Platelet | 512 (H) | 150 - 400 K/uL | EXTERNAL | | | Count | | | LAB | | | Plasma | | | | | + + + + + + | MPV | 6.4 | fl | EXTERNAL | | | | | | LAB | | + + + + + + | Differentia | AUTOMATED | | EXTERNAL | | | l Type | | | LAB | | + + + + + + | % Segmented | 73.44 | % | EXTERNAL | | | | | | LAB | | | Neutrophils | | | | | + + + + + + | % | 16.20 | % | EXTERNAL | | | Lymphocytes | | | LAB | | + + + + + + | % Monocytes | 9.57 | % | EXTERNAL | | | | | | LAB | | + + + + + + | % | 0.50 | % | EXTERNAL | | | Eosinophils | | | LAB | | + + + + + + | % Basophils | 0.29 | % | EXTERNAL | | | | | | LAB | | + + + + + + | Absolute | 3.90 | 1.90 - 7.40 | EXTERNAL | | | Segmented | | K/uL | LAB | | | Neutrophils | | | | | + + + + + + | Absolute | 0.86 (L) | 1.00 - 3.90 | EXTERNAL | | | Lymphocytes | | K/uL | LAB | | + + + + + + | Absolute | 0.51 | 0.00 - 0.80 | EXTERNAL | | | Monocytes | | K/uL | LAB | | + + + + + + | Absolute | 0.03 | 0.00 - 0.50 | EXTERNAL | | | Eosinophils | | K/uL | LAB | | + + + + + + | Absolute | 0.02 | 0.00 - 0.10 | EXTERNAL | | | Basophils | | K/uL | LAB | | + + + + + + | RBC | NORMAL PLT MORPH | | EXTERNAL | | | Morphology | Comment: | | LAB | | | | 1+ | | | | | | ANISO | | | | | | | | | | + + + + + + | Platelet | INCREASEDComment: | | EXTERNAL | | | Estimate | Testing performed at | | LAB | | | | [facility] [place] [address] | | | | | | Bl;[place] [address] | | | | + + + + + + + + | Specimen | + + | Blood specimen | | (specimen) | + + + +---------+ + + | Performing | Address | City/State/Zipcode | Phone Number | | Organization | | | | + +---------+ + + | EXTERNAL LAB | | | | + +---------+ + + C-Reactive Protein (11/09/2017 1:50 PM PDT) + + + + + + | Component | Value | Ref Range | Performed | Pathologist | | | | | At | Signature | + + + + + + | CRP | 13.0 (H)Comment: Testing | mg/dL | EXTERNAL | | | | performed at [facility] | | LAB | | | | [address];[place] | | | | | | [address] | | | | + + + + + + + + | Specimen | + + | Blood specimen | | (specimen) | + + + +---------+ + + | Performing | Address | City/State/Zipcode | Phone Number | | Organization | | | | + +---------+ + + | EXTERNAL LAB | | | | + +---------+ + + , Serum, Qual (11/09/2017 1:50 PM PDT) + + + + + + | Component | Value | Ref Range | Performed | Pathologist | | | | | At | Signature | + + + + + + | HCG | NEGATIVEComment: Testing | | EXTERNAL | | | QUALITATIVE | performed at [facility];[address] | | LAB | | | | [address];[place], [place] | | | | | | [address] | | | | + + + + + + + + | Specimen | + + | Blood specimen | | (specimen) | + + + +---------+ + + | Performing | Address | City/State/Zipcode | Phone Number | | Organization | | | | + +---------+ + + | EXTERNAL LAB | | | | + +---------+ + + Lipase (11/09/2017 1:50 PM PDT) + + + + + + | Component | Value | Ref Range | Performed | Pathologist | | | | | At | Signature | + + + + + + | Lipase | 31 (L)Comment: Testing | 73 - 393 U/L | EXTERNAL | | | | performed at [facility];[address] | | LAB | | | | [address];[place] | | | | | | [address] | | | | + + + + + + + + | Specimen | + + | Blood specimen | | (specimen) | + + + +---------+ + + | Performing | Address | City/State/Zipcode | Phone Number | | Organization | | | | + +---------+ + + | EXTERNAL LAB | | | | + +---------+ + + Comprehensive Metabolic Panel (11/09/2017 1:50 PM PDT) + + + + + + | Component | Value | Ref Range | Performed | Pathologist | | | | | At | Signature | + + + + + + | Na | 138 | 135 - 145 | EXTERNAL | | | | | mmol/L | LAB | | + + + + + + | K | 3.9 | 3.5 - 4.9 | EXTERNAL | | | | | mmol/L | LAB | | + + + + + + | Cl | 103 | 99 - 109 mmol/L | EXTERNAL | | | | | | LAB | | + + + + + + | CO2 | 30 | 23 - 32 mmol/L | EXTERNAL | | | | | | LAB | | + + + + + + | Anion Gap | 9 | 5 - 20 mmol/L | EXTERNAL | | | | | | LAB | | + + + + + + | Glucose, | 96 | 65 - 99 mg/dL | EXTERNAL | | | Fasting | | | LAB | | + + + + + + | BUN | 7 (L) | 8 - 25 mg/dL | EXTERNAL | | | | | | LAB | | + + + + + + | Creatinine | 0.27 (L) | 0.50 - 1.00 | EXTERNAL | | | | | mg/dL | LAB | | + + + + + + | BUN/Creatin | 26 | | EXTERNAL | | | ine Ratio | | | LAB | | + + + + + + | Calcium | 7.9 (L) | 8.5 - 10.5 | EXTERNAL | | | | | mg/dL | LAB | | + + + + + + | Protein, | 5.6 (L) | 6.3 - 8.2 g/dL | EXTERNAL | | | Total | | | LAB | | + + + + + + | Albumin | 1.7 (L) | 3.6 - 5.0 g/dL | EXTERNAL | | | | | | LAB | | + + + + + + | Globulin | 3.9 | 1.3 - 4.9 g/dL | EXTERNAL | | | | | | LAB | | + + + + + + | A/G Ratio | 0.4 (L) | 1.0 - 2.4 | EXTERNAL | | | | | | LAB | | + + + + + + | Bilirubin | 0.2 | 0.1 - 1.5 mg/dL | EXTERNAL | | | Total | | | LAB | | + + + + + + | ALP, | 113 | 35 - 115 U/L | EXTERNAL | | | External | | | LAB | | + + + + + + | AST | 9 (L) | 10 - 45 U/L | EXTERNAL | | | | | | LAB | | + + + + + + | ALT | 10 | 10 - 65 U/L | EXTERNAL | | | | | | LAB | | + + + + + + | Estimated | >60Comment: GFR <60: | mL/min/1.73m2 | EXTERNAL | | | GFR | CHRONIC KIDNEY DISEASE, | | LAB | | | | IF FOUND OVER A 3 MONTH | | | | | | PERIOD.GFR <15: KIDNEY | | | | | | FAILURE.FOR | | | | | | AMERICANS, MULTIPLY THE | | | | | | CALCULATED GFR BY | | | | | | 1.210.Testing performed | | | | | | at [facility] | | | | | | [address];[place] [address] | | | | + + + + + + + + | Specimen | + + | Blood specimen | | (specimen) | + + + +---------+ + + | Performing | Address | City/State/Zipcode | Phone Number | | Organization | | | | + +---------+ + + | EXTERNAL LAB | | | | + +---------+ + + documented in this encounter Visit Diagnoses + + | Diagnosis | + + | Perianal abscess Abscess of anal and rectal regions | + + documented in this encounter
--- OUTSIDE RECORDS SUMMARY | ~2020-04-23 | XMS | Encounter Summary ---
Demographics + + + | Address | [address] | | | [place] [address] | + + + | Home Phone | | + + + | Preferred Language | Unknown | + + + | Marital Status | Single | + + + | Methodist Affiliation | Unknown | + + + | Race | White | + + + | Ethnic Group | Not or | + + + Author + + + | Author | [facility] | | | and [place] | + + + | Organization | [facility] | | | and [place] | + + + | Address | Unknown | + + + | Phone | Unavailable | + + + Support + + + + + | Name | Relationship | Address | Phone | + + + + + | Ancajany White | ECON | [address] | | | | | [place] | | | | | [address] | | + + + + + Care Team Providers + +------+ + | Care Engagement Mgr Name | Role | Phone | + +------+ + | Peyton Canseco MD | PCP | | + +------+ + Reason for Visit + + + | Reason | Comments | + + + | Follow-up | Established patient presents for follow up to remove packing. | + + + Encounter Details +--------+---------+ + + + | Date | Type | Department | Care Team | Description | +--------+---------+ + + + | 10/02/ | Office | [facility] | Emmanuel, | [id number] | | 2020 | Visit | GENERAL SURGERY [address] | (Primary Dx) | | | | [address] | [address] | | | | | [place], [place] | [place] [address] | | | | | [address] | [phone] | | | | | [phone] | | | +--------+---------+ + + + [...] + documented as of this encounter Progress Puma Delaney ARNP - 10/03/2019 11:00 AM PDT Colorectal Surgery Post Operative Follow Up Note Audrey White : 1995 Surgery preformed: EUA seton exchange Date of surgery: 10/02/19 DATE OF VISIT: 10/03/2019 SUBJECTIVE HPI: Patient is here to check to see if there is any packing in her wound. Anorectal pain :yes Diarrhea :no Constipation :no Fevers or chills :no Nausea or vomiting :no Blood in stool :no Mild incontinence :no Incisional pain :yes Pain improving :yes Drainage :yes OBJECTIVE There were no vitals filed for this visit. Physical Exam External anus WNL :no, Fistula in ano x [address] Wound bed healthy. No pack ing noted. Incision clean :yes Wound healed :no Sphincter WNL :yes Anoscopy done :no Blood on exam :no Drainage noted :yes Tender on exam :yes IMPRESSION: Satisfactory course postop from EUA and seton exchange PLAN: 1.Follow up as scheduled 2.Sitz baths BID CARLOS Avelar 11:12 AM; 10/03/2019 documented in th is encounter Plan of Treatment Not on filedocumented as of this encounter Visit Diagnoses + + | Diagnosis | + + | [id number] - Primary Anal fistula | + + documented in this encounter"
--- OUTSIDE RECORDS SUMMARY | ~2020-04-23 | XMS | Encounter Summary ---
Demographics + + + | Address | [address] | | | [place] [address] | + + + | Home Phone | | + + + | Preferred Language | Unknown | + + + | Marital Status | Single | + + + | Lutheran Affiliation | Unknown | + + + | Race | White | + + + | Ethnic Group | Not or | + + + Author + + + | Author | [facility] | | | and [place] | + + + | Organization | [facility] | | | and [place] | + + + | Address | Unknown | + + + | Phone | Unavailable | + + + Support + + + + + | Name | Relationship | Address | Phone | + + + + + | Ancajany White | ECON | [address] | | | | | [place] | | | | | [address] | | + + + + + Care Team Providers + +------+ + | Care Rail Crew Member Name | Role | Phone | + +------+ + PCP | Unavailable | + +------+ + Encounter Details +--------+ + + + + | Date | Type | Department | Care Team | Description | +--------+ + + + + | 06/23/ | Hospital | [facility] | Mickey Shen, | Neoplasm of | | 2018 | Encounter | [facility] | [facility] [place] | uncertain behavior | | | | INTENSIVE CARE UNIT | [address], | | | | | [address] | [place] [address] | | | | | [place], [place] | [phone] | | | | | [address] | | | | | | [phone] | | | +--------+ + + + [...] + + + | Blood Pressure | 99/62 | 06/23/2018 11:34 AM | | | | | PST | | + + + + + | Pulse | 78 | 06/23/2018 11:34 AM | | | | | PST | | + + + + + | Temperature | 36.6 C (97.8 F) | 06/23/2018 11:34 AM | | | | | PST | | + + + + + | Respiratory Rate | 16 | 06/23/2018 11:34 AM | | | | | PST | | + + + + + | Oxygen Saturation | - | - | | + + + + + | Inhaled Oxygen | - | - | | | Concentration | | | | + + + + + | Weight | 54 kg (119 lb 0.8 | 06/23/2018 11:34 AM | | | | oz) | PST | | + + + + + | Height | 160 cm (5' 3") | 06/23/2018 11:34 AM | | | | | PST | | + + + + + | Body Mass Index | 21.09 | 06/23/2018 11:34 AM | | | | | PST | | + + + + + documented in this encounter Discharge Summaries Mickey Shen MD - 06/23/2018 9:23 AM PSTFormatting of this note might be different fr om the original. Discharge Summaries by Mickey Shen MD at 06/23/18922 Author: Mickey Shen MD Service: Plastic Surgery Author Type: Physician Filed: 06/23/18923 Date of Service: 06/23/18922 Status: Signed Row Boss: Mickey Shen MD (Physician) [facility] Service: Plastic Surgery Brief Post-op Discharge Note DISCHARGE DIAGNOSES: Principal Problem: Neoplasm of uncertain behavior Resolved Problems: * No resolved hospital problems. * Procedures: Procedure(s) with comments: EXCISION TISSUE HEAD - frontal scalp This patient was transferred to the recovery area post-operatively and has experienced no d ifficulties at the time of my assessment. The patient is anticipated to continue to meet di scharge criteria per protocol as assessed by nursing and may be discharged at that time with designated caregiver. Disposition: Home Condition: Good Code Status: Full Code No discharge procedures on file. Follow up: Peyton Canseco MD [address] [facility] [place] [id number] Medication List CONTINUE taking these medications acetaminophen 500 MG tablet Refills: 0 Commonly known as: TYLENOL ENTYVIO IV Refills: 0 HYDROcodone-acetaminophen 7.5-325 MG per tablet QTY: 20 tablet Refills: 0 Commonly known as: NORCO Take 1 tablet by mouth every 6 (six) hours as needed for Pain. INJECTAFER 750 MG/15ML injection Refills: 0 Generic drug: ferric carboxymaltose methotrexate 15 MG tablet Refills: 0 Commonly known as: TREXALL multivitamin with minerals tablet Refills: 0 ondansetron 4 MG disintegrating tablet Refills: 0 Commonly known as: ZOFRAN-ODT VITAMINS PO Refills: 0 You might also be taking other medications not listed above. If you have questions about an y of your other medications, talk to the person who prescribed them or your Primary Care Pro vider. MICKEY SHEN MD 06/23/2018 documented in this encounter Medications at Time [...] | | Take 1 tablet by | 20 | 0 | 06/09/20 | | | HYDROcodone-acetamin | mouth every 6 (six) | tablet | | 18 | 9 | | ophen (NORCO) | hours as needed for | | | | | | 7.5-325 mg per | Pain. | | | | | | tablet | | | | | | + + + +---------+ + + | methotrexate | Take 15 mg by mouth | | 0 | 11/18/19 | | | (TREXALL) 15 MG | once a week. | | | 18 | 0 | | tablet | | | | | | + + + +---------+ + + | | Take by mouth. | | 0 | 06/14/20 | | | Fzfrzgqy-Dgy-Pd-FA | | | | 18 | 0 | | ( VITAMINS | | | | | | | PO) | | | | | | + [...] Progress Notes Conversion Transaction, Provider Unknown - 06/23/2018 12:00 PM PSTFormatting of this note m ight be different from the original. Nurse Progress Note by Janae Suárez RN at 06/23/181199 Author: Janae Suárez RN Service: General Surgery Author Type: Registered Nurse Filed: 06/23/18 4078 Date of Service: 06/23/181199 Status: Signed Row Boss: Janae Suárez RN (Registered Nurse) Discharge instructions and prescriptions given to patient and family and they stated under standing. Patient pain and nausea controlled. Meets discharge criteria. onver jeff Transaction, Provider Unknown - 06/23/2018 11:34 AM PST Nurse Progress Note by Janae Suárez RN at 06/23/181133 Author: Janae Suárez RN Service: General Surgery Author Type: Registered Nurse Filed: 06/23/181133 Date of Service: 06/23/181133 Status: Signed Row Boss: Janae Suárez RN (Registered Nurse) Up to bathroom to void. docume nted in this encounter H&P Notes Mickey Shen MD - 06/23/2018 8:18 AM PSTFormatting of this note might be different fr om the original. Interval H&P Note by Mickey Shen MD at 06/23/18817 Author: Mickey Shen MD Service: Plastic Surgery Author Type: Physician Filed: 06/23/18818 Date of Service: 06/23/18817 Status: Signed Row Boss: Mickey Shen MD (Physician) [facility] Service: Plastic Surgery Pre-Operative History & Physical Interval Update There have been no significant clinical changes since the completion of the above H&P. Tod ays physical assessment showed HP update PE: Normal appearance MICKEY SHEN MD 06/23/2018 *CORE MEASURES REMINDER: If the patient has a known or suspected infection prior to surger y, please add diagnosis to the problem list (consider: Infection 136.9). Source Note Author: Mickey Shen MD Service: (none) Author Type: Physician Filed: 06/09/18 1320 Date of Service: 06/09/18 1300 Status: Signed Row Boss: Mickey Shen MD (Physician) [facility] Service: Plastic Surgery Pre-Operative History & Physical DIAGNOSIS: Lesion left frontal scalp PROCEDURE: Excision of lesion left frontal scalp CHIEF COMPLAINT: Inflammatory lesion left frontal scalp HISTORY OF PRESENT ILLNESS: The patient is a 23 y.o. female patient has a plaque-like lesion that has some drainage on the left frontal scalp. This is been there for a number of months. She is admitted for surgi jayne excision. She states that local anesthetic does not work on her. Her surgery will be per formed therefore under general anesthesia Review of Systems Constitutional: Negative. Respiratory: Negative for cough. Cardiovascular: Negative for chest pain. All systems negative except pertinent items noted in HPI. Past Medical History Diagnosis Date Anemia Crohn disease (HCC) Crohn's disease of both small and large intestine with fistula (HCC) 05/24/2018 Methicillin resistant Staphylococcus aureus infection Other chronic pain Past Surgical History Procedure Laterality Date COLONOSCOPY 2016 Lenny Petit, [facility] EXAMINATION UNDER ANESTHESIA N/A 05/26/2018 Procedure: EXAM UNDER ANESTHESIA; Surgeon: Juan Zepeda MD; Location: [facility]; Service: General; Laterality: N/A; excision of granulation tissue and seton exchange. INCISION AND DRAINAGE PERIRECTAL ABSCESS N/A 11/10/2017 Procedure: INCISION & DRAINAGE - PERIANAL/RECTAL; Surgeon: Juan Zepeda MD; Locatio n: [facility]; Service: General; Laterality: N/A; mediport placement UPPER GASTROINTESTINAL ENDOSCOPY 2013 Done in [place] No Known Allergies Current Outpatient Prescriptions on File Prior to Visit Medication Sig Dispense Refill Cholecalciferol (VITAMIN D3) 35916 units capsule daily. 0 folic acid (FOLVITE) 1 MG tablet Take 3,000 mcg by mouth daily. 1 methotrexate (TREXALL) 15 MG tablet Take 15 mg by mouth once a week. ondansetron (ZOFRAN-ODT) 4 MG disintegrating tablet dissolve 1 tablet by mouth three ti mes a day if needed for nausea 0 oxyCODONE-acetaminophen (ROXICET) 5-325 MG per tablet Take 1-2 tablets by mouth every 6 (six) hours as needed for Pain for up to 14 days. 42 tablet 0 Vedolizumab (ENTYVIO IV) Inject into the vein every 30 (thirty) days. No current facility-administered medications on file prior to visit. Family History Problem Relation Age of Onset Cancer Maternal Grandmother colon cancer Malig hypertherm Neg Hx Social History Social History Marital status: Single Spouse name: N/A Number of children: N/A Years of education: N/A Occupational History Not on file. Social History Main Topics Smoking status: Never Smoker Smokeless tobacco: Never Used Alcohol use No Drug use: No Sexual activity: No Other Topics Concern Not on file Social History Narrative No narrative on file PHYSICAL EXAM Vital Signs: Ht 1.6 m (5' 3") | Wt 54.4 kg (120 lb) | BMI 21.26 kg/m Physical Exam Constitutional: She is oriented to person, place, and time. She appears well-nourished. Eyes: Pupils are equal, round, and reactive to light. EOM are normal. Cardiovascular: Normal rate and regular rhythm. Pulmonary/Chest: Effort normal and breath sounds normal. Neurological: She is alert and oriented to person, place, and time. Psychiatric: She has a normal mood and affect. Her behavior is normal. Thought content norm al. Scalp: There is a 4 x 5 cm plaque-like lesion on the left frontal scalp PROBLEM LIST Active Problems: * No active hospital problems. * Resolved Problems: * No resolved hospital problems. * Assessment and plan: Lesion left frontal scalp. RCAPs of excision were discussed with the patient in detail and she wishes to proceed MICKEY SHEN MD 06/09/2018 lMickey rossi M D - 06/09/2018 1:00 PM PST H&P (View-Only) by Mickey Shen MD at 06/09/18 1300 Author: Mickey Shen MD Service: (none) Author Type: Physician Filed: 06/09/18 1320 Date of Service: 06/09/18 1300 Status: Signed Row Boss: Mickey Shen MD (Physician) [facility] Service: Plastic Surgery Pre-Operative History & Physical DIAGNOSIS: Lesion left frontal scalp PROCEDURE: Excision of lesion left frontal scalp CHIEF COMPLAINT: Inflammatory lesion left frontal scalp HISTORY OF PRESENT ILLNESS: The patient is a 23 y.o. female patient has a plaque-like lesion that has some drainage on the left frontal scalp. This is been there for a number of months. She is admitted for surgi jayne excision. She states that local anesthetic does not work on her. Her surgery will be per formed therefore under general anesthesia Review of Systems Constitutional: Negative. Respiratory: Negative for cough. Cardiovascular: Negative for chest pain. All systems negative except pertinent items noted in HPI. Past Medical History Diagnosis Date Anemia Crohn disease (HCC) Crohn's disease of both small and large intestine with fistula (HCC) 05/24/2018 Methicillin resistant Staphylococcus aureus infection Other chronic pain Past Surgical History Procedure Laterality Date COLONOSCOPY 2017 Lenny Petit, [facility] EXAMINATION UNDER ANESTHESIA N/A 05/26/2018 Procedure: EXAM UNDER ANESTHESIA; Surgeon: Juan Zepeda MD; Location: [facility]; Service: General; Laterality: N/A; excision of granulation tissue and seton exchange. INCISION AND DRAINAGE PERIRECTAL ABSCESS N/A 11/10/2017 Procedure: INCISION & DRAINAGE - PERIANAL/RECTAL; Surgeon: Juan Zepeda MD; Locatio n: [facility]; Service: General; Laterality: N/A; mediport placement UPPER GASTROINTESTINAL ENDOSCOPY 2014 Done in [place] No Known Allergies Current Outpatient Prescriptions on File Prior to Visit Medication Sig Dispense Refill Cholecalciferol (VITAMIN D3) 30695 units capsule daily. 0 folic acid (FOLVITE) 1 MG tablet Take 3,000 mcg by mouth daily. 1 methotrexate (TREXALL) 15 MG tablet Take 15 mg by mouth once a week. ondansetron (ZOFRAN-ODT) 4 MG disintegrating tablet dissolve 1 tablet by mouth three ti mes a day if needed for nausea 0 oxyCODONE-acetaminophen (ROXICET) 5-325 MG per tablet Take 1-2 tablets by mouth every 6 (six) hours as needed for Pain for up to 14 days. 42 tablet 0 Vedolizumab (ENTYVIO IV) Inject into the vein every 30 (thirty) days. No current facility-administered medications on file prior to visit. Family History Problem Relation Age of Onset Cancer Maternal Grandmother colon cancer Malig hypertherm Neg Hx Social History Social History Marital status: Single Spouse name: N/A Number of children: N/A Years of education: N/A Occupational History Not on file. Social History Main Topics Smoking status: Never Smoker Smokeless tobacco: Never Used Alcohol use No Drug use: No Sexual activity: No Other Topics Concern Not on file Social History Narrative No narrative on file PHYSICAL EXAM Vital Signs: Ht 1.6 m (5' 3") | Wt 54.4 kg (120 lb) | BMI 21.26 kg/m Physical Exam Constitutional: She is oriented to person, place, and time. She appears well-nourished. Eyes: Pupils are equal, round, and reactive to light. EOM are normal. Cardiovascular: Normal rate and regular rhythm. Pulmonary/Chest: Effort normal and breath sounds normal. Neurological: She is alert and oriented to person, place, and time. Psychiatric: She has a normal mood and affect. Her behavior is normal. Thought content norm al. Scalp: There is a 4 x 5 cm plaque-like lesion on the left frontal scalp PROBLEM LIST Active Problems: * No active hospital problems. * Resolved Problems: * No resolved hospital problems. * Assessment and plan: Lesion left frontal scalp. RCAPs of excision were discussed with the patient in detail and she wishes to proceed MICKEY SHEN MD 06/09/2018 documented in this encounter Procedure Notes Conversion Transaction, Provider Unknown - 06/14/2018 2:02 PM PSTFormatting of this note m ight be different from the original. Pre-Procedure Instructions by Sophie Ghosh RN at 06/14/181401 Author: Sophie Ghosh RN Service: Anesthesiology Author Type: Registered Nurse Filed: 06/14/181401 Date of Service: 06/14/181401 Status: Signed Row Boss: Sophie Ghosh RN (Registered Nurse) >4 mets per AHA guidelines. Denies cardiac hx, CP or SOB. Phone interview. docume nted in this encounter Miscellaneous Notes Op Note - Mickey Shen MD - 06/23/2018 9:22 AM PSTFormatting of this note might be di fferent from the original. Op Note by Mickey Shen MD at 06/23/18921 Author: Mickey Shen MD Service: Plastic Surgery Author Type: Physician Filed: 06/25/18 0705 Date of Service: 06/23/18921 Status: Addendum Row Boss: Mickey Shen MD (Physician) Related Notes: Original Note by Mickey Shen MD (Physician) filed at 06/23/[address] [facility] OPERATIVE NOTE PLASTIC SURGERY DEPT Name: Audrey White Age: 23 y.o. Todays Date: 06/23/2018 Time: 9:22 AM Procedure: Excision of chronically infected sebaceous cyst from right frontal scalp, speci men dimension 5 x 3 cm with complex closure of 5 cm wound Diagnoses: Pre-Op: Lesion right frontal scalp Post-Op: Infected sebaceous cyst right frontal scalp Surgeon: Mickey Shen MD Anesthesia: Gen. Provider: Rajendra Jurado CRNA Estimated Blood Loss: 5 cc Total IV Fluids: See anesthesia record Complications: NONE Procedure Note: The patient was placed on the operating table in the supine position with appropriate neuro vascular padding. After the induction of general anesthesia, the periphery of the lesion which measured appro ximately 4 x 3 cm was shaved using a shaver. This allowed removal of a serous eschar over a circular purulent wound. The periphery of the wound was then infiltrated using Marcaine a nd lidocaine containing epinephrine. The scalp was then prepped and draped in a sterile fa shion. An axial ellipse of the scalp was then excised which included the ulcerated lesion. This was marked as the anterior margin with a nylon suture. The lateral margin was then un dermined extensively in the sub-galeal plane to allow for closure. Hemostasis was secured w ith electrocautery. Wound was then closed with simple interrupted vertical mattress sutures of 3-0 Vicryl and 3-0 chromic gut. Ointment was then applied as a bandage. All sponge needle and Instrument counts were correct. The patient tolerated the procedure w ell and was discharged to the recovery room in stable condition. MICKEY SHEN MD has created this entry using [employer] Voice Recognition softwar e and [employer] macros. The entry has been reviewed and there may still exist sound alike word e rrors. documented in this encounter Plan of Treatment Not on filedocumented as of this encounter Procedures + +--------+ + + + | Procedure Name | Priori | Date/Time | Associated Diagnosis | Comments | | | ty | | | | + +--------+ + + + | TISSUE REQUEST FOR | Routin | 06/23/2018 | | Results for this | | PATHOLOGY (NON-ORD) | e | 11:00 AM | | procedure are in the | | | | PST | | results section. | + +--------+ + + + documented in this encounter Results Tissue Request For Pathology (06/23/2018 11:00 AM PST) + + | Specimen | + + | Soft tissue sample | | (specimen) | + + + + + | Narrative | Performed At | + + + | SPECIMEN(S): A LESION - RIGHT FRONTAL SCALP SPECIMEN(S): B LESION - | EXTERNAL LAB | | RIGHT FRONTAL SCALP (SUTURE ANTERIOR) SPECIMEN SOURCE: A. LESION - | | | RIGHT FRONTAL SCALP B. LESION - RIGHT FRONTAL SCALP (SUTURE ANTERIOR) | | | CLINICAL HISTORY: No preop or clinical information is given on | | | requisition. FINAL PATHOLOGIC DIAGNOSIS: A. 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 - Negative for cytologic | | | atypia or malignancy. B. Skin and subcutis, right frontal scalp, | | | ellipse excision: - Epidermal ulceration and impetiginization with | | | superficial acute cellulitis. - Negative for cytologic atypia or | | | malignancy. BAM:mfr:C2NR MICROSCOPIC EXAMINATION: Histologic | | | sections of all submitted blocks are examined by light microscopy. | | | These findings, together with the gross examination, support the | | | pathologic diagnosis. GROSS DESCRIPTION: Two specimens are received | | | in two containers labeled White: A. The specimen is received in | | | formalin designated "lesion right frontal scalp" and consists of | | | irregular shaped piece of skin tissue that measures 1.5 x 0.8 x 0.2 cm | | | with attached subcutaneous dark red, soft tissue that measures up to | | | 1.2 cm in thickness. The specimen is unoriented. The specimen is | | | inked, serial sectioned and upon sectioning reveals a dark red | | | subcutaneous homogeneous tissue. Theater Education Teacher sections are | | | submitted in single cassette A1. B. The specimen is received in | | | formalin designated "lesion right frontal scalp" and consists of skin | | | ellipse that measures 3.5 x 1.6 x 0.4 cm. The skin surface is a brown | | | huntley and granulated. It shows brown hair. The specimen shows a black | | | stitch that is designated as anterior per the requisition. The | | | specimen is inked from 12-6 black, from 6-12 blue. The specimen is | | | serial sectioned and entirely submitted in 2 cassettes B1-12 o'clock | | | half, B2- 6 o'clock half. js:ARMOND:andrew PERFORMING LABORATORY: The | | | technical component was performed by [facility], [address] [place] [address] | | | [facility] [address] (Telephone Directory Distributor Driver: Anuradha Ro MD; CLIA# | | | [id number]). Professional interpretation was performed by | | | [facility], [facility], [address] | | [facility] [place] [address]. 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
--- OUTSIDE RECORDS SUMMARY | ~2020-04-23 | XMS | Encounter Summary ---
Demographics + + + | Address | [address] | | | [place] [address] | + + + | Home Phone | | + + + | Preferred Language | Unknown | + + + | Marital Status | Single | + + + | Baptism Affiliation | Unknown | + + + | Race | White | + + + | Ethnic Group | Not or | + + + Author + + + | Author | [facility] | | | and [place] | + + + | Organization | [facility] | | | [...] [place] | | | | | [address] | | + + + + + Care Team Providers + +------+ + | Care Extras Casting Director Name | Role | Phone | + +------+ + | Peyton Canseco MD | PCP | | + +------+ + Reason for Visit +--------+--------+ + | Reason | Onset | Comments | | | Date | | +--------+--------+ + | Other | 10/11/ | appointment | | | 2020 | | +--------+--------+ + Encounter Details +--------+ + + + + | Date | Type | Department | Care Team | Description | +--------+ + + + + | 10/11/ | Telephone | [facility] | Rosa Tee, | Other (appointment) | | 2020 | | GENERAL SURGERY [address] | [employer]illing [employer] | | | | | [address] | | | | | | [place], [place] | | | | | | [address] | | | | | | [phone] | | | +--------+ + + + [...] this encounter Miscellaneous Notes Telephone Encounter - Cecilia Hyatt - 10/12/2019 1:29 PM PDTForwarding to Rosa cho is returning call. TTelephone Encounter - Maggie Henley - 10/12/2019 1:19 PM PDTChejos, is returning call for Other (appointment) and would like a call back. Additional Call Details: Returning call. Please call back at the home number. elephone Encounter - Rosa Real, [employer] - 10/12/2019 12:34 PM PDTI have attempted to contact this patient by phone with the following results: message left to return my call in regards to a ppointment. docu mented in this encounter Plan of Treatment Not on filedocumented as of this encounter Visit Diagnoses Not on filedocumented in this encounter"
--- OUTSIDE RECORDS SUMMARY | ~2020-04-23 | XMS | Encounter Summary ---
Demographics + + + | Address | [address] | | | [place] [address] | + + + | Home Phone | | + + + | Preferred Language | Unknown | + + + | Marital Status | Single | + + + | Yarsanism Affiliation | Unknown | + + + | Race | White | + + + | Ethnic Group | Not or | + + + Author + + + | Author | [facility] | | | and [place] | + + + | Organization | [facility] | | | and [place] | + + + | Address | Unknown | + + + | Phone | Unavailable | + + + Support + + + + + | Name | Relationship | Address | Phone | + + + + + | Ancajany White | ECON | [address] | | | | | [place] | | | | | [address] | | + + + + + Care Team Providers + +------+ + | Care Repairer Wood Furniture Name | Role | Phone | + +------+ + | Peyton Canseco MD | PCP | | + +------+ + Encounter Details +--------+ + + + + | Date | Type | Department | Care Team | Description | +--------+ + + + + | 11/09/ | Orders Only | [facility] | Conversion | | | 2018 | | CONVERSION [address] | Transaction, | | | | | [address] | Provider Unknown | | | | | [place], [place] | [phone] | | | | | [address] | | | | | | [phone] | | | +--------+ + + + [...]
--- OUTSIDE RECORDS SUMMARY | ~2020-04-23 | XMS | Encounter Summary ---
Demographics + + + | Address | [address] | | | [place] [address] | + + + | Home Phone | | + + + | Preferred Language | Unknown | + + + | Marital Status | Single | + + + | Gnosticist Affiliation | Unknown | + + + | Race | White | + + + | Ethnic Group | Not or | + + + Author + + + | Author | [facility] | | | and [place] | + + + | Organization | [facility] | | | and [place] | + + + | Address | Unknown | + + + | Phone | Unavailable | + + + Support + + + + + | Name | Relationship | Address | Phone | + + + + + | Anca White | ECON | [address] | | | | | [place] | | | | | [address] | | + + + + + Care Team Providers + +------+ + | Care Truck Cleaner Name | Role | Phone | + +------+ + PCP | Unavailable | + +------+ + Encounter Details +--------+ + + + + | Date | Type | Department | Care Team | Description | +--------+ + + + + | 06/03/ | Hospital | C GENERIC IP | Conversion | Pain | | 2018 | Encounter | CONVERSION DEP [address] | Transaction, | | | | | [address] | Provider Unknown | | | | | [place], [place] | [phone] | | | | | [address] | (Fax) | | | | | [phone] | | | +--------+ + + + [...] + + documented as of this encounter Medications at Time of Discharge [...] | + +--------+ + + + | MRI ABDOMEN W WO | Routin | 09/09/2017 | | Results for this | | CONTRAST | e | 5:24 AM | | procedure are in the | | | | PST | | results section. | + +--------+ + + + documented in this encounter Results MRI Abdomen w wo Contrast (09/09/2017 5:24 AM PST) + + | Specimen | + + | | + + + + + | Narrative | Performed At | + + + | This is a non-reportable procedure without a radiologist report and | | | is used for image storage only | | + + + + + | Procedure Note | + + | Edd Oliveira Vern - 03/07/2019 7:59 AM PDT This is a non-reportable procedure | | without a radiologist report and isused for image storage only | + + documented in this encounter Visit Diagnoses + + | Diagnosis | + + | Pain Generalized pain | + + documented in this encounter"
--- OUTSIDE RECORDS SUMMARY | ~2020-04-23 | XMS | Encounter Summary ---
Demographics + + + | Address | [address] | | | [place] [address] | + + + | Home Phone | | + + + | Preferred Language | Unknown | + + + | Marital Status | Single | + + + | Adventist Affiliation | Unknown | + + + | Race | White | + + + | Ethnic Group | Not or | + + + Author + + + | Author | [facility] | | | and [place] | + + + | Organization | [facility] | | | and [place] | + + + | Address | Unknown | + + + | Phone | Unavailable | + + + Support + + + + + | Name | Relationship | Address | Phone | + + + + + | Ancajany White | ECON | [address] | | | | | [place] | | | | | [address] | | + + + + + Care Team Providers + +------+ + | Care Wire Strander Name | Role | Phone | + +------+ + | Peyton Canseco MD | PCP | | + +------+ + Encounter Details +--------+ + + + + | Date | Type | Department | Care Team | Description | +--------+ + + + + | 03/18/ | Orders Only | [facility] | Soniya Webster, | Crohn's disease of | | 2019 | | GASTROENTEROLOGY | [address] | small and large | | | | [address] | [place] [address] | intestines with | | | | [place], [place] | [phone] | complication (HCC) | | | | [address] | | (Primary Dx) | | | | [phone] | | | +--------+ + + + [...] as of this encounter Plan of Treatment + +------+--------+ + + | Name | Type | Priori | Associated Diagnoses | Order Schedule | | | | ty | | | + +------+--------+ + + | Misc Lab Referral | Lab | Routin | Crohn's disease of | 1 Occurrences | | | | e | small and large | starting 03/18/2019 | | | | | intestines with | until 05/12/2019 | | | | | complication (HCC) | | + +------+--------+ + + documented as of this encounter Visit Diagnoses + + | Diagnosis | + + | Crohn's disease of small and large intestines with complication (HCC) - Primary | + + documented in this encounter"
--- OUTSIDE RECORDS SUMMARY | ~2020-04-23 | XMS | Encounter Summary ---
Demographics + + + | Address | [address] | | | [place] [address] | + + + | Home Phone | | + + + | Preferred Language | Unknown | + + + | Marital Status | Single | + + + | Presybeterian Affiliation | Unknown | + + + | Race | White | + + + | Ethnic Group | Not or | + + + Author + + + | Author | [facility] | | | and [place] | + + + | Organization | [facility] | | | and [place] | + + + | Address | Unknown | + + + | Phone | Unavailable | + + + Support + + + + + | Name | Relationship | Address | Phone | + + + + + | Anca White | ECON | [address] | | | | | [place] | | | | | [address] | | + + + + + Care Team Providers + +------+ + | Care Clinical Trial Leader Name | Role | Phone | + +------+ + | Peyton Canseco MD | PCP | | + +------+ + Reason for Visit + +--------+ + | Reason | Onset | Comments | | | Date | | + +--------+ + | Appointment | 08/06/ | schedule | | | 2019 | | + +--------+ + | Appointment | 08/06/ | Reschedule | | | 2019 | | + +--------+ + Encounter Details +--------+ + + + + | Date | Type | Department | Care Team | Description | +--------+ + + + + | 08/06/ | Telephone | [facility] | Emmanuel | Appointment | | 2019 | | GENERAL SURGERY [address] | [address] | (schedule); | | | | [address] | [address] | Appointment | | | | [place], [place] | [place] [address] | (Reschedule ) | | | | [address] | [phone] | | | | | [phone] | | | +--------+ + + + [...] this encounter Miscellaneous Notes Telephone Encounter - Diamante Antunez - 08/21/2019 3:44 PM PSTChejos, is calling again for Appointment (schedule) and Appointment (Reschedule ) and would like a call back. Additional Call Details: Calling to reschedule 08/22 appointment. Can be reached at Home Nu mber listed in Chart. elephone Encounter - Naina Nash I - 08/06/2019 4:26 PM PSTChelsea, is calling regarding Appointment (schedul e) and would like a call back. Additional Call Details: Call back on home number listed. If this is a symptom based call, was patient offered triage? Not Applicable If this is a symptom based call and you were unable to immediately transfer the call to a ladan diez payroll auditor was caller made aware that if at any time she feels it is an emergency they sh ould call 911 or go to the nearest emergency room? not applicable documented in this encounter Plan of Treatment Not on filedocumented as of this encounter Visit Diagnoses Not on filedocumented in this encounter"
--- OUTSIDE RECORDS SUMMARY | ~2020-04-23 | XMS | Encounter Summary ---
Demographics + + + | Address | [address] | | | [place] [address] | + + + | Home Phone | | + + + | Preferred Language | Unknown | + + + | Marital Status | Single | + + + | Samaritan Affiliation | Unknown | + + + | Race | White | + + + | Ethnic Group | Not or | + + + Author + + + | Author | [facility] | | | and [place] | + + + | Organization | [facility] | | | and [place] | + + + | Address | Unknown | + + + | Phone | Unavailable | + + + Support + + + + + | Name | Relationship | Address | Phone | + + + + + | Ancajany White | ECON | [address] | | | | | [place] | | | | | [address] | | + + + + + Care Team Providers + +------+ + | Care Quality Assurance Coach Name | Role | Phone | + +------+ + | Peyton Canseco MD | PCP | | + +------+ + Encounter Details +--------+ + + + + | Date | Type | Department | Care Team | Description | +--------+ + + + + | 06/09/ | Orders Only | [facility] | Mickey Shen, | | | 2017 | | PLASTIC SURGERY AND | [address] | | | | | DERMATOLOGY [address] [place], | | | | | [place] | [place] [address] | | | | | [place] | [phone] | | | | | [address] | | | | | | [phone] | | | +--------+ + + + [...]
--- OUTSIDE RECORDS SUMMARY | ~2020-04-23 | XMS | Encounter Summary ---
Demographics + + + | Address | [address] | | | [place] [address] | + + + | Home Phone | | + + + | Preferred Language | Unknown | + + + | Marital Status | Single | + + + | Confucianist Affiliation | Unknown | + + + | Race | White | + + + | Ethnic Group | Not or | + + + Author + + + | Author | [facility] | | | and [place] | + + + | Organization | [facility] | | | and [place] | + + + | Address | Unknown | + + + | Phone | Unavailable | + + + Support + + + + + | Name | Relationship | Address | Phone | + + + + + | Anca White | ECON | [address] | | | | | [place] | | | | | [address] | | + + + + + Care Team Providers + +------+ + | Care Paring Machine Operator Name | Role | Phone | + +------+ + PCP | Unavailable | + +------+ + Encounter Details +--------+ + + + + | Date | Type | Department | Care Team | Description | +--------+ + + + + | 05/26/ | Hospital | [facility] | Juan Zepeda Casa, | [id number]; | | 2018 | Encounter | [facility] | MD Rose WATKINS | Crohn's disease of | | | | OPER[address] | [address] | both small and large | | | | [address] | [place] [address] | intestine with | | | | [place], [place] | [phone] | fistula (HCC) | | | | [address] | | | | | | [phone] | | | +--------+ + + + [...] + + + | Blood Pressure | 100/58 | 05/26/2018 7:26 PM | | | | | PDT | | + + + + + | Pulse | 88 | 05/26/2018 7:26 PM | | | | | PDT | | + + + + + | Temperature | 37.2 C (98.9 F) | 05/26/2018 7:26 PM | | | | | PDT | | + + + + + | Respiratory Rate | 16 | 05/26/2018 7:26 PM | | | | | PDT | | + + + + + | Oxygen Saturation | - | - | | + + + + + | Inhaled Oxygen | - | - | | | Concentration | | | | + + + + + | Weight | 54.8 kg (120 lb 13 | 05/26/2018 7:26 PM | | | | oz) | PDT | | + + + + + | Height | 160 cm (5' 3") | 05/26/2018 7:26 PM | | | | | PDT | | + + + + + | Body Mass Index | 21.4 | 05/26/2018 7:26 PM | | | | | PDT | | + + + + + documented in this encounter Medications at Time [...] Progress Notes Conversion Transaction, Provider Unknown - 05/26/2018 7:55 PM PDTFormatting of this note m ight be different from the original. Nurse Progress Note by Charlee Stack RN at 05/26/181954 Author: Charlee Stack RN Service: (none) Author Type: Registered Nurse Filed: 05/26/182052 Date of Service: 05/26/181954 Status: Signed Magnetic Observer: Charlee Stack RN (Registered Nurse) Verbal and written discharge instruction including removing pacing strips in am, discharge meds and diet. No questions, expresses understanding onver jeff Transaction, Provider Unknown - 05/26/2018 7:10 PM PDT Nurse Progress Note by Charlee Stack RN at 05/26/181909 Author: Charlee Stack RN Service: (none) Author Type: Registered Nurse Filed: 05/26/18 193 Date of Service: 05/26/181909 Status: Signed Magnetic Observer: Charlee Stack RN (Registered Nurse) Prescription sent with father to be filled onver jeff Transaction, Provider Unknown - 05/26/2018 6:14 PM PDT Pharmacy Note by Chris Land RPH at 05/26/181813 Author: Chris Land RPH Service: Pharmacy Author Type: Pharmacist Filed: 05/26/181813 Date of Service: 05/26/181813 Status: Signed Magnetic Observer: Chris Land RPH (Pharmacist) Clinical Pharmacy Note: Renal Monitoring Currently there is no serum creatinine. Pharmacy will adjust medications, if necessary, in AM when labs are reported. Chris Land PharmCasa 05/26/2018 6:14 PM docume nted in this encounter H&P Notes Juan Zepeda MD - 05/26/2018 3:00 PM PDTFormatting of this note might be different f rom the original. H&P by Juan Zepeda MD at 05/26/18 1500 Author: Juan Zepeda MD Service: General Surgery Author Type: Physician Filed: 05/26/18 1606 Date of Service: 05/26/18 1500 Status: Signed Magnetic Observer: Juan Zepeda MD (Physician) [facility]: Colon & Rectal Surgery Note Subjective: Patient ID: Audrey White is a 23 y.o. female. Chief Complaint: Buttock abscess HPI Patient Summary: Audrey White is a very pleasant 23 y.o. female who has the unfortuna te history of crohn's disease. This was initially diagnosed in 2012. She was first seen by Dr. Bonilla and then by a IBD specialty group in [place]. She has been on budesonide, remicad e and humira previously. Currently she is being treated with entyvio and methotrexate. She is now being follow by Dr. Webster here at [facility]. She had a perianal fistula in 11/09 and underwent an I&D and seton placement with Dr. Zepeda. 05/23/18: Audrey White returns to the clinic with her mother today to follow up regard ing her Crohn's disease. She was recently seen in the ED for a buttock abscess, was prescri bed abx and was told to follow up with us. She often gets skin abscesses. She states that since her seton exchange a few weeks ago that the fistula has also been uncomfortable. She is also very frustrated with her current crohn's status. She is having continued abdominal pain and discomfort. She is having increasing bouts of diarrhea. Her mother would like to discuss possible surgical options. Her last colonoscopy was with her [place] [facility] providers i n 11/09 that found "extensive acute & chronic inflammation & ulceration w/ focal granuloma fo rmation in the TI; stricture in the TI requiring dilatation; acute & chronic inflammation w/ o granuloma & ulceration in the sigmoid; active chronic colitis in the rectum" (taken from [facility]'s consult note). She has never had abdominal surgery. Review of Systems Gastrointestinal: Positive for abdominal pain, diarrhea, nausea, rectal pain and vomiting. Skin: Positive for rash and wound. All other systems reviewed and are negative. Past Medical History Diagnosis Date Anemia Crohn disease (HCC) Methicillin resistant Staphylococcus aureus infection Other chronic pain Past Surgical History Procedure Laterality Date COLONOSCOPY 2016 Lenny Petit, [facility] INCISION AND DRAINAGE PERIRECTAL ABSCESS N/A 11/10/2017 Procedure: INCISION & DRAINAGE - PERIANAL/RECTAL; Surgeon: Juan Zepeda MD; Locat ion: [facility] MAIN OR; Service: General; Laterality: N/A; [facility] [place] [facility] Social History Marital status: Single Spouse name: N/A Number of children: N/A Years of education: N/A Occupational History Not on file. Social History Main Topics Smoking status: Never Smoker Smokeless tobacco: Never Used Alcohol use No Drug use: No Sexual activity: No Other Topics Concern Not on file Social History Narrative No narrative on file Current Outpatient Prescriptions: Cholecalciferol (VITAMIN D3) 21542 units capsule, daily., Disp: , Rfl: 0 ciprofloxacin (CIPRO) 500 MG tablet, Take 1 tablet by mouth 2 (two) times daily for 10 days., Disp: 20 tablet, Rfl: 0 folic acid (FOLVITE) 1 MG tablet, Take 3,000 mcg by mouth daily., Disp: , Rfl: 1 HYDROcodone-acetaminophen (NORCO) 5-325 MG per tablet, Take 1-2 tablets by mouth every 6 (six) hours as needed for Pain. Do not exceed 8 in a 24 hour period. Do not take Tylenol , as this medication has Tylenol in it., Disp: 20 tablet, Rfl: 0 HYDROCODONE-ACETAMINOPHEN PO, Take by mouth., Disp: , Rfl: methotrexate (TREXALL) 15 MG tablet, Take 15 mg by mouth once a week., Disp: , Rfl: methotrexate 2.5 MG tablet, Take 2.5 mg by mouth once a week., Disp: , Rfl: metroNIDAZOLE (FLAGYL) 500 MG tablet, Take 1 tablet by mouth 3 (three) times daily for 10 days., Disp: 30 tablet, Rfl: 0 ondansetron (ZOFRAN-ODT) 4 MG disintegrating tablet, dissolve 1 tablet by mouth three times a day if needed for nausea, Disp: , Rfl: 0 oxyCODONE-acetaminophen (PERCOCET) 5-325 MG per tablet, Take 2 tablets by mouth every 6 (six) hours as needed for Pain., Disp: 40 tablet, Rfl: 0 Vedolizumab (ENTYVIO IV), Inject into the vein every 30 (thirty) days., Disp: , Rfl: Objective Objective: Physical Exam Vitals: 05/26/18 1535 BP: 105/55 Pulse: 82 Resp: 21 Temp: 97.9 F (36.6 C) SpO2: (!) 87% Constitutional: She is oriented to person, place, and time. She appears well-developed and well-nourished. Cardiovascular: Normal rate. Pulmonary/Chest: Effort normal. Abdomina/Gl: Soft. Genitourinary: Neurological: She is alert and oriented to person, place, and time. Skin: Skin is warm and dry. Psychiatric: She has a normal mood and affect. Her behavior is normal. Nursing note and vitals reviewed. Assessment/Plan Assessment and Plan: Patient presents with severe Crohn's disease presenting with symptoms of abdominal pain and diarrhea as well as anorectal manifestations. The plan is for an exam under anesthesia fir st, incision and drainage of the risk rectal abscess and cleaning up of excess granulation t issue at the seton site. We will also discuss the case with regarding her symptomatology and maximum med ical management and determine if she went benefit from segmental resection of the terminal i leum. I would like to obtain her latest imaging studies confirming the location of the dise ase in the terminal ileum. Juan Zepeda MD 05/26/2018 documented in this encounter Miscellaneous Notes Op Note - Juan Zepeda MD - 05/26/2018 5:59 PM PDTFormatting of this note might be d ifferent from the original. Op Note by Juan Zepeda MD at 05/26/181758 Author: Juan Zepeda MD Service: General Surgery Author Type: Physician Filed: 05/27/181917 Date of Service: 05/26/181758 Status: Signed Magnetic Observer: Juan Zepeda MD (Physician) Related Notes: Original Note by Juan Zepeda MD (Physician) filed at 05/26/18 180 [facility]: Colon & Rectal Surgery Operative Note Pre-operative Diagnosis: Fistula in ano, Crohn's disease Post-operative Diagnosis: Same Procedure(s): Exam under anesthesia, incision and drainage of perirectal abscess and seton placement. Surgeon: Juan Zepeda MD Cold Meat Cook(s): Emmanuel GONZALEZ Anesthesia: Monitor Anesthesia Care and Local anesthesia Estimated Blood Loss: Less Than 10 ml (Minimal) Other: Swab culture Indications: See pre-operative history and physical. Findings: Fistula in ano. Normal rectum, no evidence of rectal disease. Complications: None acute Description of Procedure: The patient was brought back to the operating room and was place d in the prone jackknife position under monitored anesthesia care. The area was prepped and draped in the usual sterile fashion. Appropriate exposure. Local incision was infiltrated . The patient had a right anterior seton placed anterior midline internal opening and trans sphincteric fistula tract into the external opening just outside the sphincter mechanism in the right anterior midline. There was extensive granulation tissue at the opening of the ex ternal opening and that led into a large cavity that went anteriorly towards the vagina and then also went laterally towards the right lateral position where there is an abscess. This was unroofed with a Bovie, drained the abscess. There was excessive granulation tissue tra cking from that abscess going towards the internal opening, so this was a transsphincteric f istula, same internal opening emptying into a cavity just outside the internal sphincter and then going both anterior and also going to the right creating these tracts. Also, both ext ernal openings connect, so I curetted the granulation tissue with a curet, cleaned it out ve ry well. I then placed a second seton through the same internal opening to the second exter nal opening which is into the right lateral position, so she will have two setons into the s romel internal opening. The old one was into the right anterior, the new one is into the righ t lateral position. Then I placed a vessel loop between the two external openings. That wou ld be removed in the office once the inflammation and the cavity starts closing out. The loida cho tolerated the procedure well. Condition: Stable Juan Zepeda MD 05/26/2018 documented in this encounter Plan of Treatment Not on filedocumented as of this encounter Visit Diagnoses + + | Diagnosis | + + | [id number] Anal fistula | + + | Crohn's disease of both small and large intestine with fistula (HCC) Regional | | enteritis of small intestine with large intestine | + + documented in this encounter
--- OUTSIDE RECORDS SUMMARY | ~2020-04-23 | XMS | Encounter Summary ---
Demographics + + + | Address | [address] | | | [place] [address] | + + + | Home Phone | | + + + | Preferred Language | Unknown | + + + | Marital Status | Single | + + + | Mandaen Affiliation | Unknown | + + + | Race | White | + + + | Ethnic Group | Not or | + + + Author + + + | Author | [facility] | | | and [place] | + + + | Organization | [facility] | | | and [place] | + + + | Address | Unknown | + + + | Phone | Unavailable | + + + Support + + + + + | Name | Relationship | Address | Phone | + + + + + | Anca White | ECON | [address] | | | | | [place] | | | | | [address] | | + + + + + Care Team Providers + +------+ + | Care Bill Checker Name | Role | Phone | + +------+ + | Peyton Canseco MD | PCP | | + +------+ + Encounter Details +--------+ + + + + | Date | Type | Department | Care Team | Description | +--------+ + + + + | 09/24/ | Preadmit | [facility] | | | | 2020 | Visit | REGIONAL SURGERY | | | | | | CENTER PREADMISSION | | | | | | [facility] [address] | | | | | | [place] | | | | | | [address] | | | | | | [phone] | | | +--------+ + + + [...] + + + | Blood Pressure | - | - | | + + + + + | Pulse | - | - | | + + + + + | Temperature | - | - | | + + + + + | Respiratory Rate | - | - | | + + + + + | Oxygen Saturation | - | - | | + + + + + | Inhaled Oxygen | - | - | | | Concentration | | | | + + + + + | Weight | 59 kg (130 lb) | 09/25/2019 10:24 AM | | | | | PST | | + + + + + | Height | 160 cm (5' 3") | 09/25/2019 10:24 AM | | | | | PST | | + + + + + | Body Mass Index | 23.03 | 09/25/2019 10:24 AM | | | | | PST | | + + + + + documented in this encounter Miscellaneous Notes Preadmit Clinic Note - Tricia Pena RN - 09/25/2019 10:30 AM PST We will call to Construct e you your ARRIVAL TIME the afternoon prior to your procedure. DO NOT EAT ANY SOLID FOOD AFTER MIDNIGHT! YOU MAY HAVE WATER OR APPLE JUICE UNTIL 6 HANY RS BEFORE SURGERY. NO CANDY, GUM, OR CHEWING TOBACCO. You must arrange for a responsible adult to drive you home after your procedure. Children under 18 must have a parent stay in the facility at all times. Do not wear makeup, artificial eye lashes, jewelry, body piercings or perfume/cologne. If having arm/leg surgery, please remove all nail norwegian. Leave all valuables at home Leave contact lenses at home or bring case and solution with you. PAS completed over the phone, questions answered, pt verbalizes understanding and has no further questions. Pt aware facility not able to access port DOS. documented in this encounter Plan of Treatment Not on filedocumented as of this encounter Visit Diagnoses Not on filedocumented in this encounter
--- OUTSIDE RECORDS SUMMARY | ~2020-04-23 | XMS | Encounter Summary ---
Demographics + + + | Address | [address] | | | [place] [address] | + + + | Home Phone | | + + + | Preferred Language | Unknown | + + + | Marital Status | Single | + + + | Sikh Affiliation | Unknown | + + + | Race | White | + + + | Ethnic Group | Not or | + + + Author + + + | Author | [facility] | | | and [place] | + + + | Organization | [facility] | | | and [place] | + + + | Address | Unknown | + + + | Phone | Unavailable | + + + Support + + + + + | Name | Relationship | Address | Phone | + + + + + | Anca White | ECON | [address] | | | | | [place] | | | | | [address] | | + + + + + Care Team Providers + +------+ + | Care Harvester Operator Name | Role | Phone | + +------+ + | Peyton Canseco MD | PCP | | + +------+ + Encounter Details +--------+ + + + + | Date | Type | Department | Care Team | Description | +--------+ + + + + | 02/07/ | Orders Only | [facility] | Conversion | Crohn's disease of | | 2019 | | CONVERSION DEP [address] | Transaction, | both small and large | | | | [address] | Provider Unknown | intestine with | | | | [place], [place] | | complication (HCC) | | | | [address] | | | | | | [phone] | | | +--------+ + + + [...] of this encounter Plan of Treatment + + +--------+ + + | Name | Type | Priori | Associated Diagnoses | Order Schedule | | | | ty | | | + + +--------+ + + | Clostridium | Microbiolog | Routin | Crohn's disease of | Expected: | | difficile A and B | y | e | both small and | 05/12/2018, Expires: | | EIA | | | large intestine with | 05/12/2019 | | | | | complication (HCC) | | + + +--------+ + + | Calprotectin, Stool | Lab | Routin | Crohn's disease of | Expected: | | | | e | both small and | 05/12/2018, Expires: | | | | | large intestine with | 05/12/2019 | | | | | complication (HCC) | | + + +--------+ + + documented as of this encounter Visit Diagnoses + + | Diagnosis | + + | Crohn's disease of both small and large intestine with complication (HCC) [facility] | | enteritis of small intestine with large intestine | + + documented in this encounter"
--- OUTSIDE RECORDS SUMMARY | ~2020-04-23 | XMS | Encounter Summary ---
Demographics + + + | Address | [address] | | | [place] [address] | + + + | Home Phone | | + + + | Preferred Language | Unknown | + + + | Marital Status | Single | + + + | Jehovah'S Witness Affiliation | Unknown | + + + | Race | White | + + + | Ethnic Group | Not or | + + + Author + + + | Author | [facility] | | | and [place] | + + + | Organization | [facility] | | | and [place] | + + + | Address | Unknown | + + + | Phone | Unavailable | + + + Support + + + + + | Name | Relationship | Address | Phone | + + + + + | Ancajany White | ECON | [address] | | | | | [place] | | | | | [address] | | + + + + + Care Team Providers + +------+ + | Care Seismograph Chief Name | Role | Phone | + +------+ + | Peyton Canseco MD | PCP | | + +------+ + Encounter Details +--------+ + + + + | Date | Type | Department | Care Team | Description | +--------+ + + + + | 05/17/ | Orders Only | [facility] | Conversion | | | 2018 | | CONVERSION [address] | Transaction, | | | | | [address] | Provider Unknown | | | | | [place], [place] | [phone] | | | | | [address] | | | | | | [phone] | | | +--------+ + + + [...]
--- OUTSIDE RECORDS SUMMARY | ~2020-04-23 | XMS | Encounter Summary ---
Demographics + + + | Address | [address] | | | [place] [address] | + + + | Home Phone [...] Author + + + | Author | [facility] | | | and [place] | + + + | Organization | [facility] | | | and [place] | + + + | Address | Unknown | + + + | Phone | Unavailable | + + + Support + + + + + | Name | Relationship | Address | Phone | + + + + + | Ancajany White | ECON | [address] | | | | | [place] | | | | | [address] | | + + + + + Care Team Providers + +------+ + | Care Staff Nuclear Weapons Officer Name | Role | Phone | + [...] | | | | | | | Kvcwanj-vh-n | | | | | | | no | | | | | | | Procedures | | | | | | | EXAM UNDER | | | | | | | ANESTHESIA | | | | | | | RECTAL | | | +--------+--------+ + + + + Encounter Details +--------+ + + + + | Date | Type | Department | Care Team | Description | +--------+ + + + + | 10/01/ | Hospital | [facility] | | Zvyuhvv-pd-cfb | | 2020 | Encounter | REGIONAL SURGERY | | | | | | CENTER INTRA OP | | | | | | [address] | | | | | | [place], [place] | | | | | | [address] | | | | | | [phone] | | | +--------+ + + + [...] + + + | Blood Pressure | 98/51 | 10/02/2019 10:05 AM | | | | | PDT | | + + + + + | Pulse | 100 | 10/02/2019 10:05 AM | | | | | PDT [...] | Oxygen Saturation | 100% | 10/02/2019 10:05 AM | | | | | PDT [...] + documented in this encounter Discharge Instructions Instructions Jah Moya RN - 10/02/2019Post-Surgical Instructions Juan Zepeda MD [...] Other supplements that can be taken include Endoscopy Rn, Benefiber, Konsyl, or Citrucel. Continue to take [...] are concerned about your wound, please call u s immediately at [phone] or go to the [facility] Emergency Room. documented in this encounter Medications [...] Remicade. Her current GI provider is in [place]. She has tried Humira Entyv io and Stelara without significant improvement in her symptoms. 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 At her last seton exchange this was extremely uncom fortable for her. No other complaints at this time. Patient also met with a surgeon in [facility] who did not recommend surgery for Crohn's [...] Allergen Reactions Remicade [Infliximab] Anaphylaxis Principal Problem: Esvxqqp-nv-mdh Vitals: 10/02/19 0826 BP: 112/70 Pulse: 109 [...] Juan Zepeda MD - 10/02/2019 8:02 AM [facility] Service: Colon & Rectal Surgery Operative Note Pre-operative Diagnosis: Crohn's disease, fistula In ano with seton in place Post-operative Diagnosis: Same Procedure(s): fistula in ano, seton placement Surgeon: Duane GARDINER Chief School Finance Officer(s): none Anesthesia: MAC and Local anesthesia Estimated [...] the operating room. Preoperative antibiotics were given. Pat ient was placed in the prone jackknife position. [...] | PLACEMENT SETON | | 10/02/2019 | Bwewkdg-fh-rko | | | | | 8:51 AM [...] | EXAM UNDER | | 10/02/2019 | Jgcaxwn-eg-fcf | | | ANESTHESIA RECTAL | | [...] | + + + + + | [facility] | [address] | [place] [address] | [phone] | + + + + + documented in this encounter Visit Diagnoses + + | Diagnosis | + + | Udkqcmo-lo-vvg - Primary Anal fistula | + + documented in this encounter Admitting Diagnoses + + | Diagnosis | + + | Leblzmf-yv-dcg Anal fistula | + + documented in this encounter Administered Medications + +--------+ +--------+------+------+ | Medication Order | MAR | Action | Dose | Rate | Site | | | Action | Date | | | | + +--------+ +--------+------+------+ | fentaNYL (PF) injection 25-50 | Given [...] | | | | | | longer, sgrbja-xxm-ccchp use of | | | | | [...] | | | | | + +--------+ +--------+------+------+ +---+---+ | | | +---+---+ + +-------+ [...]
--- OUTSIDE RECORDS SUMMARY | ~2020-04-23 | XMS | Encounter Summary ---
Demographics + + + | Address | [address] | | | [place] [address] | + + + | Home Phone | | + + + | Preferred Language | Unknown | + + + | Marital Status | Single | + + + | Hinduism Affiliation | Unknown | + + + | Race | White | + + + | Ethnic Group | Not or | + + + Author + + + | Author | [facility] | | | and [place] | + + + | Organization | [facility] | | | and [place] | + + + | Address | Unknown | + + + | Phone | Unavailable | + + + Support + + + + + | Name | Relationship | Address | Phone | + + + + + | Ancajany White | ECON | [address] | | | | | [place] | | | | | [address] | | + + + + + Care Team Providers + +------+ + | Care Custom Leather Products Maker Name | Role | Phone | + +------+ + | Peyton Canseco MD | PCP | | + +------+ + Encounter Details +--------+ + + + + | Date | Type | Department | Care Team | Description | +--------+ + + + + | 05/04/ | Orders Only | [facility] | Conversion | | | 2018 | | CONVERSION [address] | Transaction, | | | | | [address] | Provider Unknown | | | | | [place], [place] | [phone] | | | | | [address] | | | | | | [phone] | | | +--------+ + + + [...]
--- OUTSIDE RECORDS SUMMARY | ~2020-04-23 | XMS | Encounter Summary ---
Demographics + + + | Address | [address] | | | [place] [address] | + + + | Home Phone | | + + + | Preferred Language | Unknown | + + + | Marital Status | Single | + + + | Judaism Affiliation | Unknown | + + + | Race | White | + + + | Ethnic Group | Not or | + + + Author + + + | Author | [facility] | | | and [place] | + + + | Organization | [facility] | | | and [...] [place] | | | | | [address] | | + + + + + Care Team Providers + +------+ + | Care Film Processing Utility Worker Name | Role | Phone | + +------+ + | Peyton Canseco MD | PCP | | + +------+ + Reason for Visit +--------+--------+ + | Reason | Onset | Comments | | | Date | | +--------+--------+ + | Other | 09/27/ | Prep | | | 2020 | | +--------+--------+ + Encounter Details +--------+ + + + + | Date | Type | Department | Care Team | Description | +--------+ + + + + | 09/27/ | Telephone | [facility] | Efra Gandhi | Other (Prep) | | 2019 | | GENERAL SURGERY [address] | [address] | | | | | [address] | | | | | | [place] | | | | | | [address] | | | | | | [phone] | | | +--------+ + + + [...] this encounter Miscellaneous Notes Telephone Encounter - Efra Gandhi RN - 09/28/2019 3:21 PM PSTReviewed 2 fleets pre p with the patient. Understanding verbalized. No further questions at this time. documented in this encounter Plan of Treatment Not on filedocumented as of this encounter Visit Diagnoses Not on filedocumented in this encounter"
--- OUTSIDE RECORDS SUMMARY | ~2020-04-23 | XMS | Encounter Summary ---
Demographics + + + | Address | [address] | | | [place] [address] | + + + | Home Phone [...] Author + + + | Author | [facility] | | | and [place] | + + + | Organization | [facility] | | | and [place] | + + + | Address | Unknown | + + + | Phone | Unavailable | + + + Support + + + + + | Name | Relationship | Address | Phone | + + + + + | Ancajany White | ECON | [address] | | | | | [place] | | | | | [address] | | + + + + + Care Team Providers + +------+ + | Care Director Of Midwifery/Staff Midwife Name | Role | Phone | + +------+ + PCP | Unavailable | + +------+ + Encounter Details +--------+ + + + + | Date | Type | Department | Care Team | Description | +--------+ + + + + | 05/26/ | Hospital | [facility] | Conversion | | | 2018 | Encounter | [facility] | Transaction, | | | | | CLINIC [address] | Provider Unknown | | | | | [address] [place], [place] | [phone] | | | | | [address] | | | | | | [phone] | Juan Zepeda, | | | | | | MD [address] | | | | | | [address] [place], | | | | | | [place] [address] | | | | | | [phone] | | | | | | | | +--------+ + + + [...] + + + | Blood Pressure | 105/67 | 05/26/2018 1:31 PM | | | | | PDT | | + + + + + | Pulse | 100 | 05/26/2018 1:31 PM | | | | | PDT [...] | 54 kg (119 lb 0.8 | 05/26/2018 1:31 PM | | | | oz) | PDT | | + + + + + | Height | 160 cm (5' 3") | 05/26/2018 1:31 PM | | | | | PDT | | + + + + + | Body Mass Index | 21.09 | 05/26/2018 1:31 PM | | | | | PDT [...] + +--------+ + + + | CULTURE, ANAEROBIC | STAT | 05/26/2018 | | Results for this | | | | 5:37 PM | | procedure are in the | | | | PDT | | results section. | + +--------+ + + + | HEMOGLOBIN AND | Routin | 05/26/2018 | | Results for this | | HEMATOCRIT | e | 1:36 PM | | procedure are in the | | | | PDT | | results section. | + +--------+ + + + documented in this encounter Results Culture, Anaerobic (05/26/2018 5:37 PM PDT) + + | Specimen | + + | | + + + + + | Narrative | Performed At | + + + | Specimen Description ABSCESS GRAM STAIN | EXTERNAL LAB | | 3+ | | | WBC'S SEEN | | | NO ORGANISMS SEEN CULTURE | | | 1+ | | | STAPHYLOCOCCUS AUREUSAbnormal | | | 1+ | | | NORMAL SKIN DAI ISOLATED | | | NO FURTHER WORKUP | | | Suscepibility for - STAPHYLOCOCCUS AUREUS Penicillin G | | | RESISTANT Resistant Clindamycin | | | SUSCEPTIBLESensitive Erythromycin | | | SUSCEPTIBLESensitive Gentamicin | | | SUSCEPTIBLESensitive Levofloxacin | | | RESISTANT Resistant Moxifloxacin | | | RESISTANT Resistant Oxacillin | | | SUSCEPTIBLESensitive Tetracycline | | | SUSCEPTIBLESensitive Trimethoprim + | | | SulfamethoxazoleSUSCEPTIBLESensitive Vancomycin | | | SUSCEPTIBLESensitive | | + + + + +---------+ + + | Performing | Address | City/State/Zipcode | Phone Number | | Organization | | | | + +---------+ + + | EXTERNAL LAB | | | | + +---------+ + + Hemoglobin and Hematocrit (05/26/2018 1:36 PM PDT) + + + + + + | Component | Value | Ref Range | Performed | Pathologist | | | | | At | Signature | + + + + + + | Hemoglobin | 12.6 | 11.3 - 15.5 | EXTERNAL | | | | | g/dL | LAB | | + + + + + + | Hematocrit, | 38.5Comment: Testing | 34.0 - 46.0 % | EXTERNAL | | | POC | performed at [facility] | | LAB | | | | [facility];[place], [place] | | | | | | [address] | | | | + + + + + + + + | Specimen | + + | | + + + +---------+ + + | Performing | Address | City/State/Zipcode | Phone Number | | Organization | | | | + +---------+ + + | EXTERNAL LAB | | | | + +---------+ + + documented in this encounter Visit Diagnoses Not on filedocumented in this encounter
--- OUTSIDE RECORDS SUMMARY | ~2020-04-23 | XMS | Encounter Summary ---
Demographics + + + | Address | [address] | | | [place] [address] | + + + | Home Phone | | + + + | Preferred Language | Unknown | + + + | Marital Status | Single | + + + | Mosque Affiliation | Unknown | + + + | Race | White | + + + | Ethnic Group | Not or | + + + Author + + + | Author | [facility] | | | and [place] | + + + | Organization | [facility] | | | and [place] | + + + | Address | Unknown | + + + | Phone | Unavailable | + + + Support + + + + + | Name | Relationship | Address | Phone | + + + + + | Ancajany White | ECON | [address] | | | | | [place] | | | | | [address] | | + + + + + Care Team Providers + +------+ + | Care Battery Tester And Repairer Name | Role | Phone | + +------+ + PCP | Unavailable | + +------+ + Encounter Details +--------+ + + + + | Date | Type | Department | Care Team | Description | +--------+ + + + + | 06/13/ | Hospital | [facility] | Conversion | Regional enteritis | | 2013 | Encounter | [facility] | Transaction, | of small intestine | | | | [address] | Provider Unknown | with large intestine | | | | [place], [place] | | (HCC) | | | | [address] | (Fax) | | | | | [phone] | | | +--------+ + + + [...] + +--------+ + + + | CT ENTEROGRAPHY W | Routin | 06/13/2013 | | Results for this | | CONTRAST | e | 4:08 PM | | procedure are in the | | | | PST | | results section. | + +--------+ + + + documented in this encounter Results CT Enterography (06/13/2013 4:08 PM PST) + + | Specimen | + + | | + + + + + | Impressions | Performed At | + + + | 1. CT enterography shows clear evidence of inflammatory bowel | | | disease in the terminal ileum without distention, abscess or | | | obstruction. The large intestine show similar areas of involvement | | | primarily in the region of the lower descending colon and the entire | | | sigmoid colon. 2. No other anatomic findings observed | | | | | + + + + + + | Narrative | Performed At | + + + | [facility] CT ENTEROGRAPHY ABDOMEN PELVIS W CONTRAST | | | 06/13/2013 4:08 PM HISTORY: 18 years. Female. Crohn's | | | disease. Evaluate extent TECHNIQUE A CT enterography protocol was | | | used. The patient was given one 10-mg intravenous dose of | | | metoclopramide [address] in order to | | | increase gastric and small bowel peristalsis. Then oral administration | | | of 1575 mL of Volumen was given according to the following | | | schedule: 450 mL 60 minutes before scanning, 450 mL 40 minutes before | | | scanning, 225 mL 20 minutes before scanning, 225 mL 10 minutes before | | | scanning and 225 mL with the patient on the table immediately prior to | | | scanning. Glucagon 1 mg was given intravenously just prior to | | | scanning to halt peristalsis. Then, following intravenous | | | administration of 100 mL of IsoVue-300 contrast, axial 1.25-mm images | | | of the abdomen and pelvis were acquired and reconstructed in the | | | coronal plane. COMPARISON: None. FINDINGS: The visualized | | | portions of the heart and lung bases are normal. The distal | | | esophagus is normal. The liver is normal in size, position, | | | contour and attenuation. No solid or cystic masses are noted. No | | | intrahepatic biliary ductal enlargement is seen. The portal vein and | | | hepatic veins are normal. The spleen is normal in size and | | | attenuation. No solid or cystic masses are noted. The pancreas | | | is normal in size and attenuation. No solid or cystic masses are | | | noted. The gallbladder is normal in size. No stones, sludge or | | | wall thickening is noted. The adrenal glands are normal in size | | | bilaterally. There is no evidence of an adrenal adenoma or | | | hyperplasia. The kidneys are symmetric in size bilaterally and | | | show no evidence of a solid or cystic mass. No hydronephrosis is | | | noted. No stones are seen in the collecting systems. The aorta | | | and vena cava are normal in caliber throughout their visualized course | | | including the iliac and femoral vessels. No free fluid or free | | | air is present. No adenopathy is seen in the abdomen or pelvis. | | | Regarding the small intestine, no bowel loop dilatation is observed. | | | However, some ileal loop are thickened. This is most apparent in the | | | region of the distal ileum. No adenopathy is observed. While thickness | | | is variable, a good example is image 327/3 where the average | | | thickness is 7 mm. 2 mm is the upper limits of normal. The thickening | | | extends to the terminal ileum as depicted on image 257/3. The appendix | | | is not clearly identifiable. Re: Large intestine, thickening is | | | variable. The most part, the cecum and descending colon areas appear | | | normal. In the transverse colon, serosa appears normal. More | | | inferiorly, near the descending colon junction with the sigmoid colon, | | | serosal thickening is again observed. A good example is in the | | | 204/3 or average L. wall thickness is 7 mm. There are a few | | | nonenlarged lymph nodes in the area and unlike the small intestine, | | | there is some indistinctness on the serosal margin with adjacent fat. | | | The fat itself is not infiltrated noninflamed no abscess formation | | | is seen. Rectal wall is minimally thickened but most of the | | | sigmoid colon is variably thickened. In the pelvis the bladder | | | is fluid filled and has a normal contour and wall thickness. No | | | intraluminal filling defects are seen. No diverticulum is noted. | | | The uterus and ovaries are normal. The muscles are symmetric. | | | No focal atrophy or soft tissue mass is seen. No hernias are | | | identified. The osseous structures do not demonstrate lytic or | | | blastic lesions. The SI joints and hip joints are normal. | | + + + + + | Procedure Note | + + | Tee, Rad Conversion - 03/16/2019 7:59 PM PDT [facility] ENTER[facility]BDOMEN | | PELVIS W [id number]/20/2013 4:08 PM HISTORY:18 years. Female. Crohn's disease. | | Evaluate extent TECHNIQUEA CT enterography protocol was used. The patient was given one | | 10-mg intravenous dose of metoclopramide [address]ography in order to | | increase gastric and small bowel peristalsis. Then oral administration of 1575 mL of | | Volumen was given according to the following schedule: 450 mL 60 minutes before | | scanning, 450 mL 40 minutes before scanning, 225 mL 20 minutes before scanning, 225 mL | | 10 minutes before scanning and 225 mL with the patient on the table immediately prior to | | scanning. Glucagon 1 mg was given intravenously just prior to scanning to halt | | peristalsis. Then, following intravenous administration of 100 mL of IsoVue-300 | | contrast, axial 1.25-mm images of the abdomen and pelvis were acquired and reconstructed | | in the coronal plane. COMPARISON:None. FINDINGS:The visualized portions of the heart | | and lung bases are normal. The distal esophagus is normal. The liver is normal in size, | | position, contour and attenuation. No solid or cystic masses are noted. No | | intrahepatic biliary ductal enlargement is seen. The portal vein and hepatic veins are | | normal. The spleen is normal in size and attenuation. No solid or cystic masses are | | noted. The pancreas is normal in size and attenuation. No solid or cystic masses are | | noted. The gallbladder is normal in size. No stones, sludge or wall thickening is | | noted. The adrenal glands are normal in size bilaterally. There is no evidence of an | | adrenal adenoma or hyperplasia. The kidneys are symmetric in size bilaterally and show | | no evidence of a solid or cystic mass. No hydronephrosis is noted. No stones are seen | | in the collecting systems. The aorta and vena cava are normal in caliber throughout | | their visualized course including the iliac and femoral vessels. No free fluid or free | | air is present. No adenopathy is seen in the abdomen or pelvis.Regarding the small | | intestine, no bowel loop dilatation is observed. However, some ileal loop are thickened. | | This is most apparent in the region of the distal ileum. No adenopathy is observed. | | While thickness is variable, a good example is image 327/3 where the average thickness | | is 7 mm. 2 mm is the upper limits of normal. The thickening extends to the terminal | | ileum as depicted on image 257/3. The appendix is not clearly identifiable. Re: Large | | intestine, thickening is variable. The most part, the cecum and descending colon areas | | appear normal. In the transverse colon, serosa appears normal. More inferiorly, near the | | descending colon junction with the sigmoid colon, serosal thickening is again observed. | | A good example is in the 204/3 or average L. wall thickness is 7 mm. There are a few | | nonenlarged lymph nodes in the area and unlike the small intestine, there is some | | indistinctness on the serosal margin with adjacent fat. The fat itself is not | | infiltrated noninflamed no abscess formation is seen. Rectal wall is minimally thickened | | but most of the sigmoid colon is variably thickened. In the pelvis the bladder is | | fluid filled and has a normal contour and wall thickness. No intraluminal filling | | defects are seen. No diverticulum is noted. The uterus and ovaries are normal. The | | muscles are symmetric. No focal atrophy or soft tissue mass is seen. No hernias are | | identified. The osseous structures do not demonstrate lytic or blastic lesions. The SI | | joints and hip joints are normal. IMPRESSION: 1. CT enterography shows clear evidence | | of inflammatory bowel disease in the terminal ileum without distention, abscess or | | obstruction. The large intestine show similar areas of involvement primarily in the | | region of the lower descending colon and the entire sigmoid colon. 2. No other anatomic | | findings observed | |itself is not infiltrated noninflamed no abscess formation is seen. | | | |Rectal wall is minimally thickened but most of the sigmoid colon is variably thickened. | | | | | |In the pelvis the bladder is fluid filled and has a normal contour and wall thickness. No intraluminal filling defects are seen. No diverticulum is noted. | | | |The uterus and ovaries are normal. | | | |The muscles are symmetric. No focal atrophy or soft tissue mass is seen. No hernias are i dentified. | | | |The osseous structures do not demonstrate lytic or blastic lesions. The SI joints and hip joints are normal. | | | |IMPRESSION: | |1. CT enterography shows clear evidence of inflammatory bowel disease in the terminal ileu m without distention, abscess or obstruction. The large intestine show similar areas of invo lvement primarily in the region of the | |lower descending colon and the | |entire sigmoid colon. | | | |2. No other anatomic findings observed | | | | | + + documented in this encounter Visit Diagnoses + + | Diagnosis | + + | Regional enteritis of small intestine with large intestine (HCC) Regional enteritis | | of small intestine with large intestine | + + documented in this encounter"
--- OUTSIDE RECORDS SUMMARY | ~2020-04-23 | XMS | Clinical Summary ---
Demographics + + + | Address | [address] | | | [place] [address] | + + + | Home Phone | | + + + | Preferred Language | Unknown | + + + | Marital Status | Single | + + + | Roman Catholic Affiliation | Unknown | + + + | Race | Unknown | + + + | Ethnic Group | Other Race | + + + Author + + + | Author | [facility] | + + + | Organization | NON REVENUE LOCATIONS | + + + | Address | Unknown | + + + | Phone | Unavailable | + + + Care Team Providers + +------+ + | Care Air Quality Engineer Name | Role | Phone | + +------+ + PCP | Unavailable | + +------+ + Source Comments [facility] is fully live on both [facility] and [facility] InPatient.[facility] Allergies Not on File Medications Not on file Active Problems Not on file Social History + +-------+ +--------+------+ | Tobacco [...] on file | | + + + Last Filed Vital Signs Not on file Plan of Treatment + + +-------+ + | Health Maintenance | Due Date | Last | Comments | | | | Done | | + + +-------+ + | Influenza (Flu) | | | | | vaccination (#1) | 0 | | | + + +-------+ + | Pneumococcal | Aged Out | | No longer eligible based on patient's age | | vaccination | | | to complete this topic | + + +-------+ + Results Not on filefrom Last 3 Months Insurance + +--------+ +--------+-------+---------+--------+ | Payer | Benefi | Subscriber | Effect | Phone | Address | Type | | | t Plan | ID | kori | | | | | | / | | Dates | | | | | | Group | | | | | | + +--------+ +--------+-------+---------+--------+ | [employer] | [employer] | | 02/23/20 | | | Indemn | | | SE | [phone] | 13-Pre | | | ity | | | | | sent | | | | + +--------+ +--------+-------+---------+--------+ + +--------+ +--------+ + + | Guarantor Name | Accoun | Relation to | Date | Phone | Billing Address | | | t Type | Patient | of | | | | | | | | | | + +--------+ +--------+ + + | Audrey White | Person | Self | [birth year] | [address] | | | al/Fam | | 1994 | [phone] | [place] [address] | | | [place] | | | 3 (Home) | | + +--------+ +--------+ + +"
--- OUTSIDE RECORDS SUMMARY | ~2020-04-23 | XMS | Clinical Summary ---
Demographics + + + | Address | [address] | | | [place] [address] | + + + | Home Phone | | + + + | Preferred Language | Unknown | + + + | Marital Status | Single | + + + | Restoration Affiliation | Unknown | + + + | Race | White | + + + | Ethnic Group | Not or | + + + Author + + + | Author | [facility] | | | and [place] | + + + | Organization | [facility] | | | and [place] | + + + | Address | Unknown | + + + | Phone | Unavailable | + + + Support + + + + + | Name | Relationship | Address | Phone | + + + + + | Anca White | ECON | [address] | | | | | [place] | | | | | [address] | | + + + + + Care Team Providers + +------+ + | Care Qc Analyst Name | Role | Phone | + +------+ + | Peyton Canseco MD | PCP | | + +------+ + Allergies + + + + + + | Active Allergy | Reactions | Severity | Noted | Comments | | | | | Date | | + + + + + + | Infliximab | Anaphylaxis | High | 09/25/19 | | | | | | 20 | | + + + + + + Medications + + + +---------+------+------+-------+ | Medication | Sig | Dispensed | Refills | Star | End | Statu | | | | | | t | Date | s | | | | | | Date | | | + + + +---------+------+------+-------+ | ondansetron | dissolve 1 tablet by | | 0 | 10/1 | | Activ | | (ZOFRAN ODT) 4 mg | mouth three times a | | | 6/20 | | e | | disintegrating | day if needed for | | | 18 | | | | tablet | nausea | | | | | | + + + +---------+------+------+-------+ | Multiple | Take 1 tablet by | | 0 | 11/2 | | Activ | | Vitamins-Minerals | mouth daily. | | | /20 | | e | | (MULTIVITAMIN WITH | | | | 18 | | | | MINERALS) tablet | | | | | | | + + + +---------+------+------+-------+ | acetaminophen | Take 500 mg by mouth | | 0 | 11/2 | | Activ | | (TYLENOL) 500 mg | every 6 (six) hours | | | 1/20 | | e | | tablet | as needed for Pain. | | | 18 | | | + + + +---------+------+------+-------+ | cholecalciferol | Take 50 mcg by mouth | | 0 | | | Activ | | (VITAMIN D-3) 50 mcg | Daily. | | | | | e | | (2,000 units) | | | | | | | | tablet | | | | | | | + + + +---------+------+------+-------+ | azaTHIOprine | | | 0 | 03/0 | | Activ | | (IMURAN) 50 mg | | | | 6/20 | | e | | tablet | | | | 20 | | | + + + +---------+------+------+-------+ Active Problems + + + | Problem | Noted Date | + + + | Sebaceous cyst | 09/18/2018 | + + + | [id number] | 05/24/2018 | + + + + + | Overview: Added automatically from request for surgery [id number] | + + + + + | Crohn's disease of both small and large intestine with fistula | 05/24/2018 | + + + + + | Overview: Added automatically from request for surgery [id number] | + + + + + | Neoplasm of uncertain behavior | 05/22/2018 | + + + Immunizations + + + + | Name | Administration Dates | Next Due | + + + + | INFLUENZA TRIV | 08/06/2014 | | | W/PRES(PED/ADOL/ADUL | | | | T),MULTIDOSE | | | + + + + | PNEUMOCOCCAL | 08/06/2014 | | | POLYSACCHARIDE | | | | 23-VALENT (PPSV23) | | | + + + + Family History + + +------+ + | Medical History | Relation | Name | Comments | + + +------+ + | Cancer | Maternal | | colon cancer | | | Grandmoth | | | | | er | | | + + +------+ + | Malig hypertherm | Neg Hx | | | + + +------+ + + +------+ + + | Relation | Name | Status | Comments | + +------+ + + | Father | | Alive | | + +------+ + + | Maternal Grandmother | | | | + +------+ + + | Maternal Grandmother | | | | + +------+ + + | Mother | | Alive | | + +------+ + + Social History + +-------+ +--------+------+ [...] + + + Last Filed Vital Signs + + + [...] | | + + + + + Plan of Treatment + + + + + | Health Maintenance | Due Date | Last | Comments | | | | Done | | + + + + + | Hepatitis C | | | | | Screening | 4 | | | + + + + + | Med Mgmt: Vit D | | | | | | 4 | | | + + + + + | Medication | | | | | Management | 4 | | | + + + + + | Cervical Cancer | | | | | Screening (Pap) | 5 | | | + + + + + | Vaccine: | | 08/26/19 | | | Dtap/Tdap/Td (7 - | 6 | 06, | | | Td) | | 04/08/19 | | | | | 98, | | | | | 07/23/19 | | | | | 95, | | | | | Addition | | | | | al | | | | | history | | | | | exists | | + + + + + | Med Mgmt: ALT | | 11/10/19 | | | | 8 | 18 | | + + + + + | Med Mgmt: AST | | 11/10/19 | | | | 8 | 18 | | + + + + + | Med Mgmt: PLT | | 11/11/19 | | | | 8 | 18, | | | | | 11/10/19 | | | | | 18 | | + + + + + | Med Mgmt: WBC | | 11/11/19 | | | | 8 | 18, | | | | | 11/10/19 | | | | | 18 | | + + + + + | Med Mgmt: HCT | | 05/26/20 | | | | 9 | 18, | | | | | 11/11/19 | | | | | 18, | | | | | 11/10/19 | | | | | 18 | | + + + + + | Med Mgmt: HGB | | 05/26/20 | | | | 9 | 18, | | | | | 04/19/20 | | | | | 18, | | | | | 11/10/19 | | | | | 18 | | + + + + + | Vaccine: Influenza | | 07/03/20 | | | (#1) | 0 | 19, | | | | | 07/21/20 | | | | | 17, | | | | | 08/06/19 | | | | | 15, | | | | | Addition | | | | | al | | | | | history | | | | | exists | | + + + + + | Vaccine: HPV | Completed | 11/09/19 | | | | | 09, | | | | | 05/21/20 | | | | | 08, | | | | | 12/28/19 | | | | | 08 | | + + + + + Results Not on filefrom Last 3 Months Insurance + +--------+ +--------+ +---------+------+ | Payer | Benefi | Subscriber | Effect | Phone | Address | Type | | | t Plan | ID | kori | | | | | | / | | Dates | | | | | | Group | | | | | | + +--------+ +--------+ +---------+------+ | [facility] | [place] | [id number] | 07/25/19 | [phone] | | PPO | | | | | 20-Pre | 2 | | | | | HEALTH | | sent | | | | | | CARE | | | | | | | | PPO | | | | | | + +--------+ +--------+ +---------+------+ | [facility] | [facility] | [id number] | 02/23/20 | [phone] | | PPO | | | [employer] | | 17-Pre | 2 | | | | | E | | sent | | | | | | FIRST | | | | | | | | CHOICE | | | | | | + +--------+ +--------+ +---------+------+ + +--------+ +--------+ + + | Guarantor Name | Accoun | Relation to | Date | Phone | Billing Address | | | t Type | Patient | of | | | | | | | | | | + +--------+ +--------+ + + | Audrey White | Person | Self [birth year] | [address] | | | al/Fam | | 1995 | [phone] | [place] | | | [place] | | | [address] (Home) | [address] | + +--------+ +--------+ + + Advance Directives + + + + + | Type | Date Recorded | Patient | Explanation | | | | Key Account Executive | | + + + + + | Power of | | | | | Superintendent Colliery | | | | + + + + + | Advance | | | | | Directive | | | | + + + + + + + + + + | Code Status | Date | Date | Comments | | | Activated | Inactivated | | + + + + + | Full Code | 10/02/2019 | 10/03/2019 | | | | 9:35 AM | 2:36 AM | | + + + + +
--- OUTSIDE RECORDS SUMMARY | ~2020-04-23 | XMS | Encounter Summary ---
Demographics + + + | Address | [address] | | | [place] [address] | + + + | Home Phone | | + + + | Preferred Language | Unknown | + + + | Marital Status | Single | + + + | Christian Affiliation | Unknown | + + + | Race | White | + + + | Ethnic Group | Not or | + + + Author + + + | Author | [facility] | | | and [place] | + + + | Organization | [facility] | | | and [place] | + + + | Address | Unknown | + + + | Phone | Unavailable | + + + Support + + + + + | Name | Relationship | Address | Phone | + + + + + | Ancajany White | ECON | [address] | | | | | [place] | | | | | [address] | | + + + + + Care Team Providers + +------+ + | Care Wharf Hand Name | Role | Phone | + +------+ + PCP | Unavailable | + +------+ + Encounter Details +--------+ + + + + | Date | Type | Department | Care Team | Description | +--------+ + + + + | 05/22/ | Emergency | [facility] | Lee Bennett MD | Crohn's disease of | | 2018 | | MEDICAL CENTER | [address] | perianal region with | | | | EMERGENCY CENTER | [place], [place] | abscess (HCC) | | | | [address] | [address] | | | | | [place], [place] | [phone] | | | | | [address] | | | | | | [phone] | | | +--------+ + + + [...] + + + | Blood Pressure | 103/63 | 05/22/2018 9:32 AM | | | | | PDT | | + + + + + | Pulse | 127 | 05/22/2018 9:32 AM | | | | | PDT | | + + + + + | Temperature | 36.8 C (98.2 F) | 05/22/2018 9:32 AM | | | | | PDT | | + + + + + | Respiratory Rate | 16 | 05/22/2018 9:32 AM | | | | | PDT | | + + + + + | Oxygen Saturation | - | - | | + + + + + | Inhaled Oxygen | - | - | | | Concentration | | | | + + + + + | Weight | 55.1 kg (121 lb 7.5 | 05/22/2018 9:32 AM | | | | oz) | PDT | | + + + + + | Height | - | - | | + + + + + | Body Mass Index | 21.52 | 05/22/2018 8:59 AM | | | | | PDT [...] + + documented as of this encounter ED Notes Conversion Transaction, Provider Unknown - 05/22/2018 9:59 AM PDTFormatting of this note m ight be different from the original. ED Notes by Mary Varela RN at 05/22/18958 Author: Mary Varela RN Service: (none) Author Type: Registered Nurse Filed: 05/22/18 1000 Date of Service: 05/22/18958 Status: Signed Rum Processing Operator: Mary Varela RN (Registered Nurse) Patient states that she has an abcess on her butt that has been getting worse for a few day s. States she had an abcess in October that was internal that Dr. Vargas removed. Mary Varela RN 05/22/18 1000 Lee Singletary MD - 05/22/2018 9:40 AM PDTFormatting of this note might be different from the orig inal. ED Provider Notes by Lee Bennett MD at 05/22/1840 Author: Lee Bennett MD Service: Emergency Department Author Type: Physician Filed: 05/25/18 0822 Date of Service: 05/22/18939 Status: Signed Rum Processing Operator: Lee Bennett MD (Physician) [facility] Department of Emergency Medicine 9:40 AM History of Present Illness Patient Identification Audrey White is a 23 y.o. female. Patient information was obtained from patient. History/Exam limitations: none. Patient presented to the Emergency Department by: Car History of Presenting Illness The patient is a 23 y.o. female presenting with Chief Complaint Patient presents with Abscess kalpana-rectal abscess, pain Location- rectal Onset- about one week ago Duration- worsening Severity and Character- moderate, painful Worse with- sitting Better with- none reported Radiation- does not radiate Denies- headache, vision change, sore throat, cough, chest pain, shortness of breath, vomit ing, constipation, blood in the urine or stool, rash, fever, mood change, or any other sympt oms at this time Admits- rectal pain, diarrhea (chronic), nausea Context- The patient states she has a kalpana-rectal abscess for the last week. She has a set on from a prior abscess and this feels similar. Her seton was last changed by Dr. Zepeda on 04/29/2018. She was seen by her thread pulling machine attendant this morning who advised her to come to the ED. Patient states that she has Crohn's disease which has been active for the last 2 years. She reports her symptoms related to this are at baseline. She takes Entyvio and Trexall. Pat ient denies any chance of . She denies any recent antibiotic use. Care SEMICONDUCTOR PACKAGES LEAK TESTER consiste d of Tylenol this morning, PCP: EVA POMPA Past Medical History Diagnosis Date Anemia Crohn disease (HCC) Methicillin resistant Staphylococcus aureus infection Other chronic pain Past Surgical History Procedure Laterality Date COLONOSCOPY 2017 Lenny Petit, [facility] INCISION AND DRAINAGE PERIRECTAL ABSCESS N/A 11/10/2017 Procedure: INCISION & DRAINAGE - PERIANAL/RECTAL; Surgeon: Juan Zepeda MD; Locatio n: [facility] MAIN OR; Service: General; Laterality: N/A; UPPER GASTROINTESTINAL ENDOSCOPY 2014 Done in [place] Prior to Admission medications Medication Sig Start Date End Date Taking? Authorizing Provider Cholecalciferol (VITAMIN D3) 72824 units capsule daily. 04/10/18 Historical Provider folic acid (FOLVITE) 1 MG tablet Take 3,000 mcg by mouth daily. 04/06/18 Historical Provid er HYDROCODONE-ACETAMINOPHEN PO Take by mouth. Historical Provider methotrexate (TREXALL) 15 MG tablet Take 15 mg by mouth once a week. 11/17/17 Historical P rovider methotrexate 2.5 MG tablet Take 2.5 mg by mouth once a week. Historical Provider ondansetron (ZOFRAN-ODT) 4 MG disintegrating tablet dissolve 1 tablet by mouth three times a day if needed for nausea 05/09/18 Historical Provider oxyCODONE-acetaminophen (PERCOCET) 5-325 MG per tablet Take 2 tablets by mouth every 6 (six ) hours as needed for Pain. 11/10/17 CARLOS Avelar Vedolizumab (ENTYVIO IV) Inject into the vein every 30 (thirty) days. Historical Provid er No Known Allergies Social History Social History Marital status: Single Spouse name: N/A Number of children: N/A Years of education: N/A Occupational History Not on file. Social History Main Topics Smoking status: Never Smoker Smokeless tobacco: Never Used Alcohol use No Drug use: No Sexual activity: No Other Topics Concern Not on file Social History Narrative No narrative on file Family History Problem Relation Age of Onset Cancer Maternal Grandmother colon cancer I have personally reviewed the social history, pertinent history has been addressed. Review of Systems Complete review of systems obtained and negative except as stated above in HPI Physical Exam BP 103/63 (BP Location: Left upper arm) | Pulse 127 | Temp 98.2 F (36.8 C) (Temporal) | Resp 16 | Wt 55.1 kg (121 lb 7.6 oz) | SpO2 99% | BMI 21.52 kg/m Pulse Oximetry interpretation: Normal General: Alert, female laying in bed uncomfortable Head: Normocephalic, atraumatic Eyes: Normal inspection, pupils equal and round and reactive, non-icteric. EOMI ENT: External Ears normal Nose normal Moist mucous membranes Oropharynx clear Neck: Normal inspection Supple Cardiovasc: Rate and rhythm normal No murmurs Respiratory: Breath sounds equal bilaterally No rales, wheezing or rhonchi Abdomen: Soft, non-tender, non-distended No guarding or rebound, No peritoneal signs Genitourinary: Deferred Rectal exam: Blue Seton in place with fluctuance and tenderness around the entry, 3 cm area on the left glute about 8 cm from the anus with tender fluctuence as well Back: Normal inspection Extremities: No swelling or redness Skin: Color normal Warm and dry No rash Neuro: Alert, no AMS No gross motor/sensory deficits Moving all extremities Psych: Normal Mood Normal judgement Medical Decision Making and Emergency Department Course ED Department Course 23 y.o. female presents to the ED with a chief complaints of rectal pain. Differential topher gnoses include but are not limited to: kalpana-rectal, kalpana-anal abscess, ischiorectal abscess vs other. It does not look like an intersphincteric or pelvi-rectal. Isolated kalpana-rectal ab scess is the only kind that should be treated from the ED, all others require management of a surgeon. Will call her rectal surgeon, and reassess. Review of vitals BP 103/63 (BP Location: Left upper arm) | Pulse 127 | Temp 98.2 F (36. 8 C) (Temporal) | Resp 16 | Wt 55.1 kg (121 lb 7.6 oz) | SpO2 99% | BMI 21.52 kg/m 9:[address] Zepeda, surgeon, who recommended antibiotics and pain medication, and he will see her in the office. 9:59 AM Patient reevaluation. Patient is stable. I discussed all ED results and my clinica l impression with the patient. Patient is ready for discharge. Based on pt's history and exa m I do not find any emergent or life threatening conditions. I advised patient to follow up with a PCP and we discussed the emergent signs and symptoms that would necessitate a return to ED. The patient understands and agrees with the plan. All questions and concerns addresse d. Will discharge home with Rx for Cipro, Flagyl, and [place]. Records Reviewed Old medical records. Nursing notes. Previous [facility] ED visits for unrelated complaints. Laboratory Evaluation Results None Radiology and EKG Evaluation Imaging Results None ED Diagnosis Final diagnosis Crohn's disease of perianal region with abscess (HCC) Disposition: ED Disposition ED Disposition Condition Comment Discharge Stable Follow-up Information Follow up With Specialties Details Why Contact Aileen Pompa, DO Internal Medicine call your regular doctor for a follow-up appointment i n the next 1-2 days. [address] [facility] [address] [place] [address] Juan Zepeda MD Colon and Rectal Surgery, Surgery Call and schedule next available a ppointment [address] [facility] [address] Discharge Medications: New Prescriptions CIPROFLOXACIN (CIPRO) 500 MG TABLET Take 1 tablet by mouth 2 (two) times daily for 10 d ays. HYDROCODONE-ACETAMINOPHEN (NORCO) 5-325 MG PER TABLET Take 1-2 tablets by mouth every 6 (six) hours as needed for Pain. Do not exceed 8 in a 24 hour period. Do not take Tylenol, as this medication has Tylenol in it. METRONIDAZOLE (FLAGYL) 500 MG TABLET Take 1 tablet by mouth 3 (three) times daily for 1 0 days. Procedures Additional Documentation Procedures Attending Provider Note: Lee Reyes MD personally performed the services described in this documentation, as scribed by Carlos A Hughes in my presence, and it is both accurate and complete. Chart Reviewed and Completed: 05/22/2018 10:14 AM Scribe: Irish Larson, scribing for and in the presence of Lee Bennett MD. Signed by: Irish Negron 05/22/2018 10:14 AM Lee Bennett MD 05/25/18 0822 documented in this enco unter Plan of Treatment Not on filedocumented as of this encounter Visit Diagnoses + + | Diagnosis | + + | Crohn's disease of perianal region with abscess (HCC) | + + documented in this encounter"
--- OUTSIDE RECORDS SUMMARY | ~2020-04-23 | XMS | Encounter Summary ---
Demographics + + + | Address | [address] | | | [place] [address] | + + + | Home Phone | | + + + | Preferred Language | Unknown | + + + | Marital Status | Single | + + + | Temple Affiliation | Unknown | + + + | Race | Unknown | + + + | Ethnic Group | Other Race | + + + Author + + + | Organization | Unknown | + + + | Address | Unknown | + + + | Phone | Unavailable | + + + Care Team Providers + +------+ + | Care Employee Services Manager Name | Role | Phone | + +------+ + PCP | Unavailable | + +------+ + Encounter Details +--------+ + + + + | Date | Type | Department | Care Team | Description | +--------+ + + + + | 11/14/ | Results | | Other, Faculty | | | 2003 | Only | | [phone] | | +--------+ + + + + [...] | + +--------+ + + + | DERMATOPATHOLOGY(CON | Routin | 11/15/2003 | | Results for this | | SULT) | e | | | procedure are in the | | | | | | results section. | + +--------+ + + + documented in this encounter Results DERMATOPATHOLOGY(CONSULT) (11/15/2003) + + + + + + | Component | Value | Ref Range | Performed | Pathologist | | | | | At | Signature | + + + + + + | DERMATOPATH | SOURCE OF SPECIMEN:A | | | | | (CONSULT) | CONSULTATION CLINICAL | | | | | | DESCRIPTION:Scalp; | | | | | | xseveral months, raised, | | | | | | dry, scaling lesion | | | | | | appeared initial to | | | | | | bec/w Escar by priscilla. | | | | | | Dear Dr. Solorzano: I agree | | | | | | with you regarding | | | | | | Audrey White' scalp | | | | | | biopsywhere there is | | | | | | parakeratosis | | | | | | accentuated adjacent to | | | | | | follicular | | | | | | ostiaoverlying slight | | | | | | epidermal hyperplasia | | | | | | and a very sparse, | | | | | | superficial,perivascular | | | | | | predominately | | | | | | lymphocytic infiltrate. | | | | | | No fungal organisms | | | | | | areappreciated in the | | | | | | routinely stained | | | | | | sections. 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 The | | | | | | changes are not entirely | | | | | | diagnostic and somewhat | | | | | | subtle, | | | | | | althoughconsonant with | | | | | | seborrheic dermatitis. | | | | | | Psoriasis is less | | | | | | likely but remainsin the | | | | | | histologic | | | | | | differential. There | | | | | | are a number of cross | | | | | | sections offollicles | | | | | | imparting an adnexal | | | | | | appearance to the tissue | | | | | | similar | | | | | | totrichoepithelioma | | | | | | although there is no | | | | | | evidence of a neoplasm. | | | | | | Thank you for referring | | | | | | this | | | | | | consultation.Original | | | | | | report to Dr. Solorzano. | | | | | | CRW:mm cc: Blue | | | | | | [facility] | | | | | | (1 slide, [id number] | | | | | | with copy of report) | | | | | | [address] | | | | | | [place] [address] | | | | | | 11/25/03Rendering | | | | | | Diagnostician: John | | | | | | Warren Chapman Jr., | | | | | | Kaylynn | | | | | | mayte Signed | | | | | | 11/25/2003Comment: | | | | | | SOURCE OF SPECIMEN: | | | | | | CONSULTATION | | | | + + + + + + + + | Specimen | + + | | + + + + + | Narrative | Performed At | + + + | Ordered jeff Perez DO | | + + + + + + + + | Performing | Address | City/State/Zipcode | Phone Number | | Organization | | | | + + + + + | [facility] | [address] | [place] [address] | | | DERMATOPATHOLOGY | [place] | | | + + + + + documented in this encounter Visit Diagnoses Not on filedocumented in this encounter"
--- OUTSIDE RECORDS SUMMARY | ~2020-04-23 | XMS | Encounter Summary ---
Demographics + + + | Address | [address] | | | [place] [address] | + + + | Home Phone | | + + + | Preferred Language | Unknown | + + + | Marital Status | Single | + + + | Cheondoism Affiliation | Unknown | + + + | Race | White | + + + | Ethnic Group | Not or | + + + Author + + + | Author | [facility] | | | and [place] | + + + | Organization | [facility] | | | and [place] | + + + | Address | Unknown | + + + | Phone | Unavailable | + + + Support + + + + + | Name | Relationship | Address | Phone | + + + + + | Ancajany White | ECON | [address] | | | | | [place] | | | | | [address] | | + + + + + Care Team Providers + +------+ + | Care Drop Hammer Pile Driver Operator Name | Role | Phone | + +------+ + | Peyton Canseco MD | PCP | | + +------+ + Encounter Details +--------+---------+ + + + | Date | Type | Department | Care Team | Description | +--------+---------+ + + + | 08/28/ | Office | [facility] | Emmanuel, | [id number] | | 2020 | Visit | GENERAL SURGERY [address] | CARLOS [address] | (Primary Dx) | | | | [address] | [address] | | | | | [place], [place] | [place] [address] | | | | | [address] | [phone] | | | | | [phone] | | | +--------+---------+ + + + [...] documented as of this encounter Progress Notes Emmanuel PumaCARLOS - 08/28/2019 11:40 AM PSTFormatting of this note might be differen t from the original. Service: Colorectal Surgery Progress Note ID: Audrey White; DATE OF VISIT: 08/28/2019 History Obtained From: History obtained from chart review and the patient. CHIEF COMPLAINT: perianal pain and bleeding. HISTORY OF PRESENT ILLNESS Audrey is a very pleasant 24-year-old female patient with a history of Crohn's disease, no w currently on Remicade. Her current GI provider is in [place]. She has tried Humira Entyv io and Stelara without significant improvement in her symptoms. 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 At her last seton exchange this was extremely uncom fortable for her. No other complaints at this time. Patient also met with a surgeon in [facility] who did not recommend surgery for Crohn's disease. Active comorbid conditions include: - anemia REVIEW OF SYSTEMS Review of Systems Constitutional: Negative for chills and fever. Gastrointestinal: Positive for abdominal pain and diarrhea. Negative for blood in stool, co nstipation, heartburn, melena, nausea and vomiting. Past Medical History: Diagnosis Date Anemia Crohn disease (HCC) Crohn's disease of both small and large intestine with fistula (HCC) 05/24/2018 Other chronic pain intestinal cramping Postoperative nausea Staphylococcus infection Wound drainage perirectal Past Surgical History: Procedure Laterality Date COLONOSCOPY 2017 Lenny Petit, [facility] MASS EXCISION 06/23/2018 Procedure: EXCISION TISSUE HEAD; Surgeon: Mickey Shen MD; Location: [facility] MAIN OR; Service: Plastics; Laterality: N/A; frontal scalp OTHER SURGICAL HISTORY 11/10/2017 INCISION AND DRAINAGE PERIRECTAL ABSCESS - Procedure: INCISION OTHER SURGICAL HISTORY Left chest wall OTHER SURGICAL HISTORY 05/26/2018 EXAMINATION UNDER ANESTHESIA - Procedure: EXAM UNDER ANESTHESIA; Surgeon: Juan Martínez i, MD; Location: [facility] MAIN OR; Service: General; Laterality: N/A; excision of granulatio n tissue and seton exchange. OTHER SURGICAL HISTORY HARDWARE PRESENT - port UPPER GASTROINTESTINAL ENDOSCOPY 2013 Done in [place] Social History Socioeconomic History Marital status: Single Spouse name: Not on file Number of children: Not on file Years of education: Not on file Highest education level: Not on file Occupational History Not on file Social Needs Financial resource strain: Not on file Food insecurity: Worry: Not on file Inability: Not on file Transportation needs: Medical: Not on file Non-medical: Not on file Tobacco Use Smoking status: Never Smoker Substance and Sexual Activity Alcohol use: Not on file Drug use: Not on file Comment: Drug use: No Sexual activity: Not on file Lifestyle Physical activity: Days per week: Not on file Minutes per session: Not on file Stress: Not on file Relationships Social connections: Talks on phone: Not on file Gets together: Not on file Attends muslim service: Not on file Active member of club or organization: Not on file Attends meetings of clubs or organizations: Not on file Relationship status: Not on file Intimate partner violence: Fear of current or ex partner: Not on file Emotionally abused: Not on file Physically abused: Not on file Forced sexual activity: Not on file Other Topics Concern Not on file Social History Narrative Not on file Current Outpatient Medications: acetaminophen (TYLENOL) 500 mg tablet, Take 500 mg by mouth every 6 (six) hours as nee ded for Pain., Disp: , Rfl: methotrexate (TREXALL) 15 MG tablet, Take 15 mg by mouth once a week., Disp: , Rfl: Multiple Vitamins-Minerals (MULTIVITAMIN WITH MINERALS) tablet, Take 1 tablet by mouth daily., Disp: , Rfl: ondansetron (ZOFRAN ODT) 4 mg disintegrating tablet, dissolve 1 tablet by mouth three times a day if needed for nausea, Disp: , Rfl: 0 oxyCODONE-acetaminophen (PERCOCET) 5-325 mg per tablet, Take 1 tablet by mouth every 4 (four) hours as needed for Pain., Disp: 10 tablet, Rfl: 0 Ohqnvmtp-Kdj-Be-FA ( VITAMINS PO), Take by mouth., Disp: , Rfl: ustekinumab (STELARA) 90 mg/mL injection (syringe), Inject 90 mg into the skin., Disp: , Rfl: Vedolizumab (ENTYVIO IV), Inject into the vein every 30 (thirty) days., Disp: , Rfl: There were no vitals filed for this visit. PHYSICAL EXAM Physical Exam Constitutional: She is well-developed, well-nourished, and in no distress. Pulmonary/Chest: Effort normal. Abdominal: Soft. Genitourinary: Genitourinary Comments: Right anterior and right lateral fistula in anal with seton in placex2, pyogenic granuloma noted at the external opening of both the right an terior and left lateral fistulas these were very tender to the touch Skin: Skin is warm and dry. Psychiatric: Affect and judgment normal. Vitals reviewed. ASSESSMENT & PLAN 24-year-old female patient with Crohn's disease and [...] all questions were answered to their satisfaction. CARLOS Avelar 1:07 PM; 08/28/2019 documented in th is encounter Plan of Treatment Not on filedocumented as of this encounter Visit Diagnoses + + | Diagnosis | + + | [id number]-bf-mxt - Primary Anal fistula | + + documented in this encounter"
--- OUTSIDE RECORDS SUMMARY | ~2020-04-23 | XMS | Encounter Summary ---
Demographics + + + | Address | [address] | | | [place] [address] | + + + | Home Phone | | + + + | Preferred Language | Unknown | + + + | Marital Status | Single | + + + | Tenriism Affiliation | Unknown | + + + | Race | Unknown | + + + | Ethnic Group | Other Race | + + + Author + + + | Author | [facility] | + + + | Organization | [facility] | + + + | Address | Unknown | + + + | Phone | Unavailable | + + + Care Team Providers + +------+ + | Care Birdcage Assembler Name | Role | Phone | + +------+ + PCP | Unavailable | + +------+ + Reason for Visit + + + | Reason | Comments | + + + | Referral To | | | Gastroenterology | | + + + Encounter Details +--------+ + + + + | Date | Type | Department | Care Team | Description | +--------+ + + + + | 07/17/ | Abstract | [facility] | Clinic, | Referral To | | 2012 | | Center at [facility] [address] | Gastroenterology | Gastroenterology | | | | [address] [facility] | | | | | | [facility] and | | | | | | [facility] [address] | | | | | | [place], [place] | | | | | | [address] | | | | | | [phone] | | | +--------+ + + + [...]
--- OUTSIDE RECORDS SUMMARY | ~2020-04-23 | XMS | Encounter Summary ---
Demographics + + + | Address | [address] | | | [place] [address] | + + + | Home Phone | | + + + | Preferred Language | Unknown | + + + | Marital Status | Single | + + + | Episcopal Affiliation | Unknown | + + + | Race | White | + + + | Ethnic Group | Not or | + + + Author + + + | Author | [facility] | | | and [place] | + + + | Organization | [facility] | | | and [place] | + + + | Address | Unknown | + + + | Phone | Unavailable | + + + Support + + + + + | Name | Relationship | Address | Phone | + + + + + | Anca White | ECON | [address] | | | | | [place] | | | | | [address] | | + + + + + Care Team Providers + +------+ + | Care Strategy Consultant Name | Role | Phone | + [...] Provider Unknown | | | | | [place], [place] | [phone] | | | | | [phone] | (Fax) | | | | | [phone] | | | +--------+ + + + [...] + +--------+ + + + | MRI PELVIS W WO | Routin | 09/09/2017 | | Results for this | | CONTRAST | e | 5:28 AM | | procedure are in the | | | | PST | | results section. | + +--------+ + + + documented in this encounter Results MRI Pelvis w wo Contrast (09/09/2017 5:28 AM PST) + + | Specimen | + + | | + + + + + | Narrative | Performed At | + + + | This is a non-reportable procedure without a radiologist report and | | | is used for image storage only | | + + + + + | Procedure Note | + + | Edd Oliveira - 03/07/2019 7:59 AM PDT This is a non-reportable procedure | | without a radiologist report and isused for image storage only | + + documented in this encounter Visit Diagnoses + + | Diagnosis | + + | Pain Generalized pain | + + documented in this encounter"
[~2020-04-23 03:02] MED LIST changes: +ACETAMINOPHEN500 MG PO; +AMOX TR-K CLV1 EAC1 PO; +CIMZIA400 MG SUB-Q; +DIFLUCAN100 MG PO; +HYDROMORPHONE HC4 MG PO; +IBUPROFEN600 MG PO; +PERCOCET 5-3251 EACH PO
--- OUTSIDE RECORDS SUMMARY | 2020-04-23 03:04 | XMS ---
PreManage Notification: SHANNAN MAYFIELD Security Security Screener Events No recent Security Events currently on file CRITERIA MET - [facility] - Has Care Guidelines CARE PROVIDERS ELIO CRONIN [facility] 03/05/2019-Current PHONE: [phone] Daniel has no Care Guidelines for this patient. Care History Medical/Surgical 03/05/2019 [facility] - Patient is currently established with [facility]. If patient is seen in the ED during business hours. Please contact CHWs at [facility]. Care Recommendation: This patient has had 5 or more Emergency Department visits in the last 12 months.\T\nbsp; Patient requires education on the scope and purpose of the ED as an acute care provider not a Primary Care Provider and should not be utilized for chronic conditions.\T\nbsp; These are guidelines and the provider should exercise clinical judgment when providing care. E.D. VISIT COUNT (12 MO.) 1 [facility] TOTAL 1 NOTE: Visits indicate total known visits. ED/UCC VISIT TRACKING (12 MO.) 04/23/2020 03:03 ADAM [facility] [place] TYPE: Emergency COMPLAINT: - ABDOMENAL PAIN INPATIENT VISIT TRACKING (12 MO.) No inpatient visits to display in this time frame [email or web address]
[2020-04-23] MEDS ORDERED: CLEOCIN HCL300 MG PO (03:47)
--- NOTE | 2020-04-23 06:52 | NUR ---
PT TO ROOM 122 FROM ED VIA STRETCHER. ALERT AND ORIENTED. PT ABLE TO AMBULATE FROM STRETCHER TO BED. DENIES NAUSEA, REPORTS INCREASED PAIN WITH AMBULATION. VS DONE. HR AND TEMP ELEVATED. UP TO BR TO VOID 200 ML CLEAR YELLOW URINE. BACK TO BED, YELITZA WELL. PRN ADMINISTERED FOR ABD PAIN (SEE EMAR). IVF INFUSING. PT ORIENTED TO ROOM AND NURSE CALL LIGHT. FATHER IN ROOM. NO QUESTIONS OR CONCERNS AT THIS TIME. CALL LIGHT IN REACH.
--- NOTE | 2020-04-23 07:20 | NUR ---
CALL LIGHT ANSWERED. PT AWAKENED BY 8/[address] ERAZO CALLED FOR ADDITIONAL PRN ORDERS. NOTIFIED MD OF HEART RATE AND ELEVATED TEMP WELL. NEW TELEPHONE ORDERS RECEIVED VERIFIED WITH READ BACK METHOD.
--- NOTE | 2020-04-23 07:35 | NUR ---
Recieved report from Brian Chowdhury RN. Patient lying in bed with eyes closed. Rouses to noise and asks for pain medication. Rates pain 8/10 in abdomen, state pain is near umbilicus. Patient assessment completed. LR bolus initiated per Dr. Lobato's orders and PRN analgesic provided. Patient denies other needs at this time. Call light in reach, bedrails up X2. Family at bedside.
--- NOTE | 2020-04-23 07:41 | NUR ---
Dr. Lobato in to see patient.
--- NOTE | 2020-04-23 07:45 | NUR ---
PATIENT RESTING IN BED. DAD IN ROOM. WHITE BOARD UPDATED. CALL LIGHT WITHIN REACH. NO OTHER NEEDS AT THIS TIME
--- NOTE | 2020-04-23 08:51 | NUR ---
Patient states pain has improved, but remains 6 to 7/10 at this time. PRN medication administered. Scheduled medications given. Repeat temp obtained with temp 98.8 at this time.
--- NOTE | 2020-04-23 09:48 | NUR ---
PATIENT RESTING IN BED. DAD IN ROOM. VITAL SIGNS AND I&O DONE. CALL LIGHT WITHIN REACH. NO OTHER NEEDS AT THIS TIME
--- NOTE | 2020-04-23 10:04 | NUR ---
SPOKE WITH PATIENT AND DAD IN ROOM. PATIENT IS INDEPENDENT IN AMBLATION, USES NO DME. STATES SHE LIVES WITH PARENTS. SHE CAN DRIVE. SHE IS NOT WORKING, WAITING FOR DISABILITY BENEFITS. PATIENT PLANS AND FEELS SAFE TO RETURN HOME WITH PARENTS. HAS NO STAIRS TO ROOM. THEY BOTH STATES SHE HAS NO FINANCIAL CONCERN AT THIS TIME FOR AFFORDING MEDS, FOOD OR UTILITIES SINCE SHE IS LIVING WITH THEM. SHE HAS NO QUESTIONS AT THIS TIME. CM WILL FOLLOW NEEDED.
--- NOTE | 2020-04-23 10:15 | NUR ---
Patient complaining of pain. PRN analgesic given as prescribed. Assess wound to right armpit. Wound is approximately 4 cm by 2.5 cm, beefy red wound bed with some sloughing along inferior aspect of wound. No odor noted. Surrounding tissue dry and peeling. Scalp with Dry, peeling area around to top of head.
--- NOTE | 2020-04-23 11:02 | NUR ---
PT ALERT, RECOGNIZED ME. CAN TELL PT IS VERY UNCOMFORTABLE-PAIN AT 5-6. LET SANNA ARAIZA KNOW, SHE WILL FOLLOW UP. PT REQUESTED PRAYER, WAITING FOR DR ERAZO.
--- NOTE | 2020-04-23 11:35 | NUR ---
Patient resting in bed, respirations even and unlabored. No signs of pain at this time. Father at bedside, denies needs.
--- NOTE | 2020-04-23 13:04 | NUR ---
PATIENT RESTING IN BED. VITAL SIGNS AND I&O DONE. LOW DYASTOLIC BLOOF PRESSURE. PATIENT DID NOT VOID DURING THIS PERIOD. RN NOTIFIED. CALL LIGHT WITHIN REACH. NO OTHER NEEDS AT THIS TIME
--- NOTE | 2020-04-23 13:15 | HP ---
[facility] [address] [facility] [place] [place] [address] Signed ADMISSION DATE: 04/23/2020 REASON FOR ADMISSION: Abdominal pain, Crohn disease, and possible localized perforation of ileum. HISTORY: This 25-year-old white woman presented with right lower abdominal pain beginning yesterday to the emergency room and was evaluated by Dr. Freeman. She is well known to me from the past having a history of extremely refractory Crohn disease, dominantly of the ileum, but with concurrent issues related including a nonhealing wound on the parietal aspect of her scalp. She was thought likely to have appendicitis based on her clinical findings of an elevated white count of 22,000 and local tenderness. She did have nausea and vomiting. A CT scan was performed, which showed abnormal appearing small bowel with wall thickening, stranding and some extraluminal air and a focal area in the left mid abdomen consistent with some form of small perforation possibly. There was a small amount of free fluid in the deep pelvis. Some degree of small bowel obstruction was considered as well. She has been admitted for further evaluation and care. PAST MEDICAL HISTORY: Dominantly related to Crohn disease as previously described. She was under the care of Dr. Wood at [facility], who is now leaving that institution to go to [facility] apparently, the patient told me this. She was to be enrolled in a clinical trial under the direction of Dr. Foote at [facility], but did not qualify for the phase one study and is anticipating enrollment in Phase 2. She is not currently on any biologic agent for control of her inflammatory bowel disease. REVIEW OF SYSTEMS: She denies any shortness of breath or chest pain. She does feel thirsty. PHYSICAL EXAMINATION: GENERAL: A pale-appearing white woman, who is accompanied by her father. She does not looks well, but is not diaphoretic. Mucous membranes are dry. Trachea is midline. Chest shows normal respiratory excursion without tachypnea. HEART: Regular. ABDOMEN: Nondistended. She has tenderness in the right abdomen and less so on the left side. She does not have ascites. EXTREMITIES: Did not show edema at this time. LABORATORY STUDIES: Electronically Signed By: STEWART ERAZO MD 04/23/20 1315 PATIENT NAME: SHANNAN MAYFIELD HISTORY AND PHYSICAL DATE OF : [birth year] REPORT #: [id number] PHYSICIAN: STEWART ERAZO MD PCP: PEYTON CRONIN MD REPORT IS CONFIDENTIAL AND NOT TO BE RELEASED WITHOUT AUTHORIZATION [facility] [address] [place], [place] [address] Signed Show hematocrit 42.5, platelets 720,000, and white count 22,000. Liver enzymes are normal. Albumin is low at 2.7. IMAGING DATA: CT scan report has been reviewed, I need to still review the images myself and I will do so. ASSESSMENT AND PLAN: The patient has a flare or even progression of her Crohn disease, which has been problematic and poorly responsive to the usual biologic agents. She is notably on no such agent currently. Broad-spectrum antibiotics have been initiated on the possibility of small bowel perforation related to her Crohn disease. Resectional therapy has been deemed inadvisable previously due to the long segment of small bowel involved with Crohn disease. I will review her films, but in the meantime, she is on broad-spectrum antibiotics as well as has been initiated with hydrocortisone 100 mg IV q.8 hours. Fluid resuscitation is important as well. She is at increased risk for deep venous thrombosis based on her inflammatory bowel disease and prophylaxis is given for that as well. MD ROSANNE Caraballo/NATHALYL /[id number] cc: Peyton Cronin MD Copies: ~ Electronically Signed By: STEWART ERAZO MD 04/23/20 1315 PATIENT NAME: SHANNAN MAYFIELD HISTORY AND PHYSICAL DATE OF : [birth year] REPORT #: [id number] PHYSICIAN: STEWART ERAZO MD PCP: PEYTON CRONIN MD REPORT IS CONFIDENTIAL AND NOT TO BE RELEASED WITHOUT AUTHORIZATION
--- NOTE | 2020-04-23 13:40 | NUR ---
States pain is currently tolerable. Medications administered as prescribed. Dr. Lobato in to see patient. Encourages patient to shower today and wash wound to Right axillary well. May also have liquids.
--- NOTE | 2020-04-23 14:24 | NUR ---
CONNECTED WITH PT'S PARENTS IN LOBBY. THEY BOTH ARE CONERNED ABOUT WHAT COMES NEXT. WAITING FOR DR ERAZO AND WILL THEN MAKE DECISION. GAVE ENCOURAGEMENT
--- NOTE | 2020-04-23 15:54 | NUR ---
Lying in bed, head of bed slightly elevated. Call light in reach, father at bedside. Respirations even and unlabored. Allowed to rest at this time.
--- NOTE | 2020-04-23 17:01 | NUR ---
PATIENT RESTING IN BED. DAD IN ROOM. VITAL SIGNS AND I&O DONE. LOW SYSTOLIC BLOOD PRESSURE. RN NOTIFIED. SETS UP BATHROOM FO SHOWER. CALL LIGHT WITHIN REACH. NO OTHER NEEDS AT THIS TIME
--- NOTE | 2020-04-23 17:46 | NUR ---
Patient remains with IV fluids infusing. Pain controlled with PRN Morphine, Dilaudid not as effective for pain. IV antibiotics administered as well. Patient encouraged by Dr. Lobato and this nurse to shower, has not yet showered. Wound to Right axillary open to air, no signs of infection. Wound to scalp without signs of infection. Tolerating clear liquids.
--- NOTE | 2020-04-23 18:42 | NUR ---
DISCUSSED WITH PATIENT IF ANY OF HER FAMILY MEMBER HAD OR WERE SCREENED FOR COVID. PATIENT DISCLOSED THAT HER MOM HAD COVID 2 MONTHS AGO AND IS RECOVERED. HER SISTER WAS JUST RECENTLY TESTED THIS WEEK AND IS NEGATIVE.
--- NOTE | 2020-04-23 19:08 | NUR ---
RECEIVED REPORT FROM SANNA ARAIZA. pt RESTING IN BED. REQUESTED TO TAKE A SHOWER. SL AT THIS TIME. PORT COVERED. pt HAS ALL SHE NEEDS, MOTHER WILL ASSIST. CALL LIGHT WITHIN REACH.
--- NOTE | 2020-04-23 20:30 | NUR ---
CALL LIGHT ANSWERED. pt C/O 6-01/31 PAIN. PRN MEDICATION ADMINISTERED THROUGH PORT, GOOD BLOOD RETURN. PRIMARY RN NOTIFIED. IN ROOM AT THIS TIME.
--- NOTE | 2020-04-23 20:30 | NUR ---
pt COMPLETED SHOWER. REQUESTED PRN PAIN MEDS GIVEN BY SANNA PONCE. DISCUSSED PAIN MANAGEMENT. IV ABX INFUSING.
--- NOTE | 2020-04-23 23:52 | NUR ---
ROUNDED ON pt. RESTING WITH EYES CLOSED, RESPIRATIONS REGULAR AND UNLABORED. CALL LIGHT WITHIN REACH.
--- NOTE | 2020-04-24 00:11 | NUR ---
ASSESSMENT DONE. pt COMPLAINING OF 8/10 PAIN PRN PAIN MEDICATION GIVEN (SEE MAR). pt REPOSITIONED.
--- NOTE | 2020-04-24 02:00 | NUR ---
IN TO DO VITALS AND ASSESSMENT. ASSESSMENT UNCHANGED. pt REPORTED PAIN IS "OKAY" REFUSED PAIN MEDICATION AT THIS TIME. VITALS AND I&O RECORDED. IV ABX INFUSING. CALL LIGHT WITHIN REACH.
--- NOTE | 2020-04-24 02:13 | NUR ---
v/s and i&o done and recorded by primary rn ELVER. ICE WATER REFILLED.
--- NOTE | 2020-04-24 04:00 | NUR ---
ROUNDED ON pt. RESTING WITH EYES CLOSED, RESPIRATIONS REGULAR AND UNLABORED. CALL LIGHT WITHIN REACH.
[2020-04-24] MEDS ORDERED: HYOSCYAMINE0.125 M1 SL (09:35)
--- NOTE | 2020-04-24 09:57 | NUR ---
DR ERAZO INTO SEE PT AT THIS TIME, PT IS NOW NPO FOR SURGERY THAT WILL BE DONE LATER THIS AFTERNOON.
[2020-04-24] MEDS ORDERED: VITAMIN D21250 MCG PO (10:28)
[2020-04-24] MEDS ORDERED: BUDESONIDE EC3 MG PO (10:29)
[2020-04-24] MEDS ORDERED: OXYCODON-ACETA1 EAC2 PO (11:10)
[2020-04-24] MEDS ORDERED: TYLENOL EXTRA500 MG PO (11:11)
--- NOTE | 2020-04-24 11:12 | NUR ---
MED REC COMPLETE
--- NOTE | 2020-04-24 12:57 | NUR ---
PT ALERT, ORIENTED AND LAYING IN BED, VISITING WITH HER DAD GIOVANNI. PT INFORMED ME THAT DR ERAZO IS IN SURGERY AND WILL CONNECT WITH HER AFTER REGARDING SURGERY TODAY. PT STATED SHE IS PREPARED FOR RESECTION IS NEEDED, BUT HOPES NOT. HAD GOOD VISIT WITH PT. GAVE SANNA MARIE FROM OR IN TO VISIT WITH PT. WILL FOLLOW NEEDED
--- NOTE | 2020-04-24 14:57 | NUR ---
STAFF HAS ASKED PT AT LEAST THREE TIMES TO WIPE DOWN DUE TO SURGERY. PT NOW WANTS TO WAIT TILL HER MOTHER COMES INTO HELP HER. PT DAD IS AT THE BEDSIDE.
--- NOTE | 2020-04-24 15:20 | NUR ---
Spoke with Audrey and her dad. She plans on surgery this afternoon. Awaiting mom to assist her with wipe down for surgery. She is well educated on surgery and Dr. Castillo as talked with her extensively per pt. She hopes this helps her feel better, but states she will never be well due to her diagnosis. Denies needs, discussed I will see her tomorrow.
--- NOTE | 2020-04-24 16:40 | NUR ---
PT TO OR ATT HIS TIME, IV FLUIDS AND ABX SENT WITH PT. ALL QUESTIONS ANSWERED. DR ERAZO TALKED WITH PT'S MOTHER. FRESH LINES ON BED WHEN PT WAS UP CLEANING WITH SURGICAL WIPES.
--- NOTE | 2020-04-24 22:25 | NUR ---
04/24/20 2225 Sheets,Mary Ellen 2216 PT ARRIVED TO PACU WITH ORAL AIRWAY IN PLACE. RESP EVEN AND UNLABORED. VSS. PT NONAROUSBALE. PT ON 6L VIA MASK 2222 PT WAKES TO TACTILE STIMULI AND ORAL AIRWAY REMOVED. RESP EVEN AND UNLABORED AND PT EASILY FALLS BACK TO SLEEP.
--- NOTE | 2020-04-24 23:30 | NUR ---
pt ARRIVED FROM SURGERY. RECEIVED REPORT FROM SANNA ALFONSO. pt COMPLAINED OF PAIN, BURNING PAIN IN HER ABD, PAIN IN HER BACK, AND TINGLING IN HER LEGS. pt RECENTLY MEDICATED. REPOSITIONED, 2PA. SCANT AMOUNT OF URINE IN MUNOZ. pt COMPLAINED OF PAIN WHEN TOUCHED. DISCUSSED PAIN MANAGEMENT. FATHER AT BEDSIDE.
--- NOTE | 2020-04-25 01:42 | NUR ---
PT CALLED IN PAIN, ADMINISTERED 5MG MORPHINE. PT REPORTS BURNING AT INCISION SITE. ICE BAG PROVIDED, PT STATED SHE DIDN'T WANT IT PREVIOUSLY BUT IS WILLING TO TRY IT NOW. SHE DENIES FURTHER NEEDS. CALL LIGHT IS CLOSE.
--- NOTE | 2020-04-25 02:21 | NUR ---
pt RESTING WITH EYES CLOSED, RESPIRATIONS SHALLOW, REGULAR. WOKE WITH BLOOD PRESSURE. COMPLAINED OF PAIN 01/31. PRN PAIN MEDICATION GIVEN (SEE MAR). LIGHT ICE PACKS PROVIDED. pt COMPLAINS OF "BURNING" NEAR INCISION SITE. pt COMPLAINS OF PAIN WHEN TOUCHED UNEXPECTEDLY. DISCUSSED PAIN MANAGEMENT. WILL CONTINUE TO MONITOR. FATHER AT BEDSIDE.
--- NOTE | 2020-04-25 03:09 | NUR ---
IN TO GIVE PAIN MEDICATION FOR 6/10 PAIN. DISCUSSED PAIN MANAGEMENT. pt MORE AWAKE AT THIS TIME. PARTICIPATED IN THE DISCUSSION. ANSWERED QUESTIONS ABOUT HER SURGERY. pt REPORTED THAT PERCOCET WORKS WELL AT HOME. WILL CONTINUE TO MONITOR. pt WILL CALL IF PAIN CONTINUES TO INCREASE.
--- NOTE | 2020-04-25 03:51 | NUR ---
ROUNDED ON pt. RESTING WITH EYES CLOSED, RESPIRATIONS REGULAR AND UNLABORED. FATHER AT BEDSIDE. CALL LIGHT WITHIN REACH.
--- NOTE | 2020-04-25 04:26 | NUR ---
CALL LIGHT ON. pt REPORTED 6/10 PAIN PRN GIVEN (SEE MAR). pt REPORTED FEELING A FULL BLADDER, MANIPULATED MUNOZ TO DRAIN CORRECTLY. NO FURTHER REQUESTS AT THIS TIME. CALL LIGHT WITHIN REACH. pt REPORTED "I THINK I ACTUALLY DID SLEEP A LITTLE."
--- NOTE | 2020-04-25 06:37 | NUR ---
IN TO GIVE MEDICATIONS AND DO VITALS. pt REPORTED 5/10 PAIN "IT'S OKAY RIGHT NOW BUT IT IS GOING UP." PRN PAIN MED GIVEN (SEE MAR) WITH SCHEDULED MEDICATION. NO FURTHER REQUESTS AT THIS TIME. CALL LIGHT WITHIN REACH.
--- NOTE | 2020-04-25 08:00 | NUR ---
PT VERY TEARFUL THIS AM, C/O PAIN STOMACH UPSET "I FEEL THAT I AM GOING TO THROW UP" ZOFRAN IVP GIVEN MEDICATED FOR PAIN WITH 6MG MORPHINE, AND 1000MG TYLENOL IV ND ICE PACKES PLACED ON ABD. ALSO PHONE CALL TO DR CASTRO [place] 30MG IVP GIVEN. MUNOZ DRAINING CLEAR YELLOW URINE. PT TRYING TO SLEEP AND WHEN SHE DOES SPO2 DECREASES SO 2L'S NC PLACED.
--- NOTE | 2020-04-25 09:47 | NUR ---
PATIENT AWAKE IN BED, DAD IN ROOM. MUNOZ EMPTIED, SMALL AMOUNT OF ICE CHIPS GIVEN. CALL LIGHT IN REACH.
--- NOTE | 2020-04-25 12:18 | NUR ---
PT LAYING QUIETLY IN BED, WELCOMED ME IN. PT SHARED SHE HAD A RESECTION, HAVING DIFFICULTY RESTING, MOSTLY FROM PAIN. GAVE ENCOURAGEMENT
--- NOTE | 2020-04-25 13:12 | NUR ---
PT MEDICATED FOR PAIN 6MG MORPHINE IVP GIVEN, PT ENCOURAGE TO MOVE ABOUT IN THE BED. HOB UP AT THIS TIME AND WILL GAVE PT TILL 13:00 TILL WE DANGLE AT THE BEDSIDE. PT CONTIOUES TO BE TEARFUL WHEN TALKING ABOUT GETTING UP OUT OF BED. ENCOURAGE PT THAT THIS IS GOING TO HURT BUT EACH DAY IT WILL HURT A LITTLE LESS.
--- NOTE | 2020-04-25 13:21 | NUR ---
PATIENT AWAKW IN BED, VITALS AND I&OS CARTED. GARBAGE AND MUNOZ EMPTIED. @50 ICE CHIPS INTAKE. CALL LIGHT IN REACH, NO OTHER NEEDS AT THIS TIME
--- NOTE | 2020-04-25 14:06 | NUR ---
PT STOOD AT THE EDGE OF THE BED AT THIS TIME, PT DID WELL WITH THIS AND LINE CHANGED AND PT WASHED UP ALSO AT THIS TIME. PT BACK TO BED, ICE PACKES PLACED TO INCISION. PT ON ROOM AIR AND SPO2 99%.
--- NOTE | 2020-04-25 14:22 | NUR ---
NEW ORDERS RECEIVED DIET ADVANCED TO CLEAR LIQUIDS.
--- NOTE | 2020-04-25 15:40 | NUR ---
PT WORKING ON HER CLEAR LIQUID DIET AT THIS TIME. PT IS HAVING GOOD APIN CONTROL. PT MOTHER IS AT BEDSIDE NOW.
--- NOTE | 2020-04-25 16:00 | NUR ---
PT C/O NAUSEA AND DIZZNESS, ZOFRAN 4MG IVP GIVEN AND CLEAR LIQUID TRAY REMOVED.
--- NOTE | 2020-04-25 16:00 | NUR ---
Spoke with Audrey. States she had a rough night. Has ice packs on incisions and feels better now. Denies needs. Is concerned it may take her longer to heal and she will have to stay in the hospital.
--- NOTE | 2020-04-25 18:19 | NUR ---
PT GIVEN NEWSPAPER TO WORK ON CROSSWORDS, MOTHER REMAINS AT THE BEDSIDE.
--- NOTE | 2020-04-25 18:49 | NUR ---
c/o pain tordal ivp 30mh given
--- NOTE | 2020-04-25 19:07 | NUR ---
RECEIVED REPORT FROM SANNA PHAN. pt REPORTED HER PAIN IS "OKAY" AT THIS TIME. WHITEBOARD UPDATED. CALL LIGHT WITHIN REACH. MOTHER AT BEDSIDE.
--- NOTE | 2020-04-25 20:55 | NUR ---
TOOK VITALS, I&Os IN, FRESH ICE WATER GIVEN, RN IN FOR ASSESMENT, NO FURTHER REQUESTS AT THIS TIME
--- NOTE | 2020-04-25 21:02 | NUR ---
IN TO GIVE MEDICATIONS AND ASSESS. pt REPORTED 4/10 PAIN. DENIED NEED FOR PAIN MEDICATION AT THIS TIME. ASSESSMENT DONE. BOWEL TONES ACTIVE. DENIED NAUSEA. IVF INFUSING. MEDICATIONS GIVEN (SEE MAR). DISCUSSED PAIN MANAGEMENT. VITALS AND I&O RECORDED. FRESH WATER PROVIDED. CALL LIGHT WITHIN REACH. FATHER AT BEDSIDE.
--- NOTE | 2020-04-25 22:37 | NUR ---
IN TO GIVE MEDS, NEW BAG OF FLUID HUNG, SCHEDULED MEDICATION GIVEN. pt REPORTED 6/10 PAIN PRNS GIVEN (SEE MAR). PROVIDED FRESH ICE PACKS. NO FURTHER REQUESTS AT THIS TIME. FATHER AT BEDSIDE. CALL LIGHT WITHIN REACH.
--- NOTE | 2020-04-25 23:59 | NUR ---
IV PUMP BEEPING. ABX INFUSION COMPLETED. pt REPORTED PAIN IS OKAY AT THIS TIME DENIED NEED FOR PAIN MEDICATION. CALL LIGHT WITHIN REACH.
--- NOTE | 2020-04-26 02:07 | NUR ---
IN TO GIVE MEDICATION. pt RESTING WITH EYES CLOSED, RESPIRATIONS REGULAR. IV ABX INFUSING (SEE MAR). CALL LIGHT WITHIN REACH.
--- NOTE | 2020-04-26 04:11 | NUR ---
ROUNDED ON pt. RESTING WITH EYES CLOSED, RESPIRATIONS REGULAR AND UNLABORED. CALL LIGHT WITHIN REACH.
--- NOTE | 2020-04-26 06:18 | NUR ---
IV PUMP BEEPING. IV ANTIBIOTIC COMPLETE. IVF INFUSING. pt AWAKE AND ALERT. ASSESSMENT DONE. REPORTED 4/10 PAIN THEN AFTER SOME MOVEMENT PAIN INCREASED TO 6/10. PRN PAIN MEDS GIVEN WITH SCHEDULED MEDICATION (SEE MAR). VITALS AND I&O ENTERED. DISCUSSED PLAN OF CARE. MUNOZ CARE DONE. CALL LIGHT WITHIN REACH.
--- NOTE | 2020-04-26 06:36 | NUR ---
pt RESTED MOST OF SHIFT. PAIN CONTROLLED WITH PRN X4. BOWEL TONES ACTIVE. DRESSING TO INCISION AND LAP SITES CDI. MUNOZ. TOLERATING WATER, DRANK A FEW SIPS OF DILUTED CLEAR ENSURE REPORTED PAIN AFTER. IVF AND IV ABX THROUGH PORT. USES CALL LIGHT APPROPRIATELY.
--- NOTE | 2020-04-26 09:12 | NUR ---
PATIENT AWAKE IN BED, CLEAR BRAKFAST TRAY ON BEDSIDE TABLE. MUNOZ EMPTIED. VITALS AND I&OS CHARTED, CALL LIGHT IN REACH, NO OTHER NEEDS AT THIS TIME
--- NOTE | 2020-04-26 09:30 | NUR ---
PT IS DRINKING APPLE JUICE THIS MORNING, + BTS, PT AGREED SHE WILL GET UP TO RECLINER TODAY, SCHEDULED MEDS GIVEN, CALL LIGHT IN EASY REACH.
--- NOTE | 2020-04-26 10:40 | NUR ---
TORADOL GIVEN FOR DISCOMFORT AND BEFORE GETTING UP TO CHAIR.
--- NOTE | 2020-04-26 11:14 | NUR ---
SBA UP TO RECLINER USING PILLOW TO SUPPORT ABD, TOLERATED WELL, C/O PAIN IN FEET WITH STANDING, ENCOURAGED PT TO STAND AND TAKE A FEW STEPS, WILL HELP INCREASE CIRCULATION. SITTING UP IN RECLINER, MULTIFOCAL BUTTON GRINDER REMAKING BED AND WILL ASSIST WITH SPONGE BATH. PT PLEASED SHE IS UP. TOLERATING WELL.
--- NOTE | 2020-04-26 11:22 | NUR ---
THIS IT INVESTMENT/PORTFOLIO MANAGER AND RN CHRIS ASSISTED PATIENT IN TRANSFERRING RFOM BED TO CHAIR. PATIENT WAS PAINFUL, BUT TOLERATED WELL. BEDBATH GIVEN, NEW GOWN AND LINENS CHANGED. PATIENT ASSURED TIME IN CHAIR WOULD BE LONG SHE COULD TOLERATE, PATIENT AGREED CALL LIGHT IN REACH, NO OTHER NEEDS AT THIS TIME.
--- NOTE | 2020-04-26 11:41 | NUR ---
PT REMAINS SITTING UP IN RECLINER, DENIES NEEDING TO LAY DOWN YET, WATCHING FOOTBALL GAME ON TV. CALL LIGHT IN EASY REACH.
--- NOTE | 2020-04-26 11:50 | NUR ---
DR ERAZO IN TO SEE PT, ORDER TO REMOVE MUNOZ AND REDUCE IVF RATE TO 75ML HR.
--- NOTE | 2020-04-26 12:09 | NUR ---
MUNOZ REMOVED, PATIENT BACK TO BED, MOM IN ROOM. CALL LIGHT IN REACH
--- NOTE | 2020-04-26 13:47 | NUR ---
VITALS AND I&OS CHARTED. MOM IN ROOM. ICE CHIPS PROVIDED. CALL LIGHTIN REACH
--- NOTE | 2020-04-26 14:30 | NUR ---
PATIENT CALLED FOR ASSISTANCE-1PA TO BR, PATIENT AMBULATED WELL AND WAS ABLE TO URNIATE. BACK TO BED, CALL LIGHT WITHIN REACH URINATE
--- NOTE | 2020-04-26 14:30 | NUR ---
PATIENT CALLED FOR ASSISTANCE. 1PA TO BR, PATIENT WAS ABLE TO VOID FIRST TIME SINCE MUNOZ REMOVED. AMBULATED WELL. BACK TO BED, CALL LIGHT WITHIN REACH
--- NOTE | 2020-04-26 17:41 | NUR ---
PATIENT UP TO BR. VITALS AND I&OS CHARTED. NO OTHER NEEDS
--- NOTE | 2020-04-26 18:01 | NUR ---
PT IS GETTING UP TO BSC WITH MINIMAL ASSIST, VOIDING QS, + FLATUS, NO STOOL YET. REPORTS GOOD PAIN CONTROL AFTER RECIEVING TYLENOL IV. WATCHING FOOTBALL GAME.
--- NOTE | 2020-04-26 19:08 | NUR ---
RECEIVED REPORT FROM SANNA PEREZ. pt REQUESTED PRN PAIN MEDICATION "I'M OKAY BUT GETTING UP IS MAKING IT HURT" MADE A PLAN TO RETURN WITH PRN PAIN MEDICATION. pt AGREEABLE TO PLAN. WHITEBOARD UPDATED. CALL LIGHT WITHIN REACH.
--- NOTE | 2020-04-26 20:56 | NUR ---
IN TO DO ASSESSMENT. pt UP TO TOILET. SBA BACK TO BED. NEEDED ASSISTANCE WITH FEET BUT OTHERWISE ABLE TO MOVE SELF. PAIN 4/10 AFTER AMBULATION. ASSESSMENT DONE. MEDICATIONS GIVEN (SEE MAR). NO FURTHER REQUESTS AT THIS TIME. FATHER AT BEDSIDE. CALL LIGHT WITHIN REACH.
--- NOTE | 2020-04-26 22:40 | NUR ---
IN TO GIVE MEDICATION. pt REPORTED HAVING AMBULATED TO TOILET AND BACK TO BED. PAIN 4/10, PRN GIVEN WITH SCHEDULED MEDICATION (SEE MAR). NO FURTHER REQUESTS AT THIS TIME. CALL LIGHT WITHIN REACH.
--- NOTE | 2020-04-27 00:28 | NUR ---
PT CALLED TO GET UP TO THE TOILET, UNHOOKED SCDS AND UNPLUGGED IV PUMP, PT INDP WALKS TO THE BATHROOM, CALLED ONCE READY TO BE BK IN BED, REHOOKED UP SCDS, NO FURTHER REQUEST AT THIS TIME
--- NOTE | 2020-04-27 02:37 | NUR ---
IV ABX INFUSING PER ORDER (SEE MAR). pt RESTING WITH EYES CLOSED, RESPIRATIONS REGULAR AND UNLABORED. CALL LIGHT WITHIN REACH.
--- NOTE | 2020-04-27 03:03 | NUR ---
CALL LIGHT ON. pt UP TO VOID. REPORTED PAIN AND NAUSEA WHEN GETTING BACK TO BED PRN MEDS GIVEN (SEE MAR). ASSESSMENT DONE. NOTED EDEMA BLE 1+ PITTING. AFTER GETTING SETTLED IN BED WITH LEGS ELEVATED pt REQUESTED TO GET UP TO VOID AGAIN. WILL CALL WHEN DONE. CALL LIGHT WITHIN REACH.
--- NOTE | 2020-04-27 03:14 | NUR ---
CALL LIGHT ON. pt BACK TO BED. NO FURTHER REQUESTS AT THIS TIME. CALL LIGHT WITHIN REACH.
--- NOTE | 2020-04-27 05:00 | NUR ---
ROUNDED ON pt. RESTING WITH EYES CLOSED, RESPIRATIONS REGULAR AND UNLABORED. CALL LIGHT WITHIN REACH.
--- NOTE | 2020-04-27 06:30 | NUR ---
IV ABX COMPLETED. IV MED GIVEN (SEE MAR). pt REPORTED 3/10 PAIN. DISCUSSED PLAN OF CARE. CALL LIGHT WITHIN REACH.
--- NOTE | 2020-04-27 08:08 | NUR ---
BEDSIDE REPORT RECEIVED. PT AWAKENS TO VOICE FULL LIQUID TRAY PROVIDED. PT DENIES PAIN OR NEEDS OF AT THIS TIME
--- NOTE | 2020-04-27 08:26 | NUR ---
PATIENT UP TO CHAIR FOR BREAKFAST. LINENS CHANGED AND GOWN CHANGED. CALL LIGHT IN LAP, NO OTHER NEEDS AT THIS TIME
--- NOTE | 2020-04-27 10:34 | NUR ---
VITALS AND I&OS CHARTED. PATIENT UP IN CHAIR, CALL LIGHT IN REACH
--- NOTE | 2020-04-27 11:40 | NUR ---
PT UP IN THE CHAIR ENTIRE MORNING. MENU ITEMS AND CHOICES DISCUSSED AT LENGTH. PT ENCOURAGED TO AMBULATE THE HALLS THIS SHIFT SEVERAL TIMES. BENEFITS EXPLAINED. PT VERBALIZES UNDERSTANDING. 0 C/O PAIN PT DESCRIBES SHE CAN "FEEL IT" WITH MOVEMENT BUT OTHERWISE DOES NOT. 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
--- NOTE | 2020-04-27 13:25 | NUR ---
PATIENT UP IN CHAIR, VITALS AND I&OS CHARTED. PATIENT GETTING READY TO AMBULATE IN [place]. CALL LIGHT IN REACH
--- NOTE | 2020-04-27 15:47 | NUR ---
DR ERAZO IN TO SEE PT ORDERS WRITTEN. PT CONTINUES UP IN THE CHAIR, HAS AMBULATED THE [place] 2 LAPS. CONTINUES WITH NO C/O PAIN OR NAUSEA STATES SHE FEELS GOOD ABOUT HOW SHE IS COMING ALONG. DENIES NEEDS OF
--- NOTE | 2020-04-27 17:18 | NUR ---
PT SITTING UPRIGHT IN BED WITH EVENING MEAL. SHE AGREES SHE HAS EVERYTHING SHE NEEDS. NO PAIN NO NAUSEA.
--- NOTE | 2020-04-27 17:20 | NUR ---
PATIENT UP IN BED, EATING DINNER. VITALS AND I&OS CHARTED. CALL LIGHT AND PERSONAL ITEMS WITHIN REACH
--- NOTE | 2020-04-27 18:29 | NUR ---
PT VISITING ACTIVELY SITTING UP IN BED EATING EVENING MEAL. DENIES OTHER CHOICES SAYS HER MEAL IS JUST RIGHT. DENIES NAUSEA OR PAIN
--- NOTE | 2020-04-27 19:41 | NUR ---
REPORT RECEIVED FROM SANNA JORGE. PT IN BED, FATHER AT BEDSIDE. DISCUSSED WITH PT PLAN OF CARE FOR NIGHT, PT RECEPTIVE AND ENGAGED. CALL LIGHT WITHIN REACH. PT REPORTS NO NEEDS AT THIS TIME.
--- NOTE | 2020-04-27 20:45 | NUR ---
TOOK PT VITALS, WAITING ON I&Os UNTIL PT VOIDS, NO FURTHER REQUEST AT THIS TIME
--- NOTE | 2020-04-27 22:38 | NUR ---
SCHEDULED MEDICATIONS ADMINISTERED, ASSESSMENT COMPLETE. DISCUSSED WITH PT HEALTH HX AND PLAN FOR CARE WHILE ADMITTED. SCDS IN PLACE. PORT FLUSHED, WNL. PT IN BED, CALL LIGHT IN REACH, STATES NO FURTHER NEEDS.
--- NOTE | 2020-04-28 01:00 | NUR ---
ROUNDED ON PATIENT, PRN PAIN MEDICATION ADMINISTERED, SCDS REMOVED PER PATIENT REQUEST. STATES NO OTHER NEEDS AT THIS TIME, CALL LIGHT IN REACH.
--- NOTE | 2020-04-28 02:17 | NUR ---
ROUNDED ON PATIENT. AWAKE IN BED, STATES SHE AMBULATED TO BR TO VOID WITH NO DIFFICULTIES. REPORTS PAIN IS "TOLERABLE", DENIES ADDITIONAL PRN AT THIS TIME. CALL LIGHT WITHIN REACH.
--- NOTE | 2020-04-28 05:39 | NUR ---
PT DOING WELL THIS SHIFT, PRN PAIN MEDICATION ADMINISTERED X1 WITH RELIEF FOUND. A+Ox4, VSS. INDEPENDENT IN ROOM. INCISION AND LAP SITES X2 WNL, DRESSING C/D/I. PORT FLUSH WNL. TOLERATING FULL LIQUID DIET. 2+ EDEMA IN BLE, 1+ EDEMA IN ARMS, FACE. ABD SOFT AND NONTENDER UPON PALPATION. USES CALL LIGHT APPROPRIATELY.
--- NOTE | 2020-04-28 08:05 | NUR ---
REPORT RECEIVED. PT IN BED AWAKE. DENIES PAIN/ NAUSEA. INDEPENDENT IN ROOM. VOIDED 300ML. LASIX ADMINSTERED. CALL LIGHT IN REACH.
--- NOTE | 2020-04-28 09:57 | NUR ---
ASSESSMENT COMPLETED. PT ATE YOGURT FOR BREAKFAST AND DENIES NAUSEA/VOMITING. PAIN AT 3/10 TOLERABLE. BOWEL TONES ACTIVE. LUNGS DIM AND CLEAR. GENERAL EDEMA TO ALL EXTREMITIES, NON-PITTING. HEART SOUNDS REGULAR. DENIES NEEDS. VOIDING WELL AFTER LASIX ADMIN.
--- NOTE | 2020-04-28 10:16 | NUR ---
PATIENT IND IN ROOM. PATIENT CURRENTLY IN BED WATCHING TV. CALL LIGHT IN REACH. NO FURTHER NEEDS AT THIS TIME.
--- NOTE | 2020-04-28 11:00 | NUR ---
OUT TO AMBULATE HALLS. WALKED TWO LAPS. TOELRATED WELL.
--- NOTE | 2020-04-28 11:37 | NUR ---
PT ALERT, ORIENTED AND SITTING UP IN BED, WATCHING TV. PT MUCH MORE TALKATIVE, FEELING IN HER TERMS "SO MUCH BETTER". HAS HER FIRST MEAL AT HOME PLANNED OUT PT HONEST ABLUT HOW DIFFICULT HER LIFE HAS BEEN WITH [facility]OH[facility]. SHE BELIEVES SHE HAS TURNED A CORNER IN HER HEALTH. LEFT Nick MEYER WILL CONTINUE TO FOLLOW
--- NOTE | 2020-04-28 13:40 | NUR ---
Spoke with Audrey cadena 2 today. She is walking in [place] frequently. Feet are edematous. States she is feeling better. No change in plan for dc.
--- NOTE | 2020-04-28 14:12 | NUR ---
PATIENT IN BED WATCHING TV. FRESH WATER GIVEN. CALL LIGHT IN REACH. NO FURTHER NEEDS AT THIS TIME.
--- NOTE | 2020-04-28 15:12 | NUR ---
DRESSING TO ABDOMEN DC'D PER ORDER. PT TOLERATED WELL. SET UP FOR SHOWER.
--- NOTE | 2020-04-28 16:56 | NUR ---
PT OUT OF SHOWER AND BACK TO BED. PT WITH MED SOFT BM. REPORTING SOME ABDOMINAL PAIN AFTERWARDS AT 12/01. PRN TYLENOL ADMINSTERED. PT NOW OUT AMBULATING HALLS.
--- NOTE | 2020-04-28 18:44 | NUR ---
PT HAD GREAT DAY, HAD COUPLE BMS. TOLERATING REGULAR DIET. NO NAUSEA. VOIDED WELL WITH LASIX. AMBULATED HALLS MULTIPLE TIMES TODAY. 1 DOSE TYLENOL FOR PAIN ADMISNTERED. PORT HEP LOCKED.
--- NOTE | 2020-04-28 18:48 | NUR ---
PATIENT IN BED WATCHING TV. CALL LIGHT IN REACH. NO FURTHER NEEDS AT THIS TIME.
--- NOTE | 2020-04-28 19:04 | NUR ---
RECEIVED REPORT FROM SANNA RAMIREZ. pt RESTING IN BED. REPORTED NO PAIN AT THIS TIME. NO REQUESTS. CALL LIGHT WITHIN REACH. WHITEBOARD WITHIN REACH.
--- NOTE | 2020-04-28 21:11 | NUR ---
IN TO DO ASSESSMENT. pt RESTING IN BED. DENIES PAIN AT THIS TIME. MEDICATIONS GIVEN (SEE MAR). pt REFUSED HEPARIN INJECTION, VERBALIZED UNDERSTANDING OF RISKS. ASSESSMENT DONE. DISTAL LAP SITE OPEN TO AIR. OTHER LAP SITE HAS STERISTRIP. MIDLINE HAS STERISTRIPS. CDI. PORT HEP LOCKED. BILATERAL EDEMA TO LEGS. NO OTHER REQUESTS AT THIS TIME. CALL LIGHT WITHIN REACH.
--- NOTE | 2020-04-28 22:33 | NUR ---
CALL LIGHT ON. pt REPORTED VOIDING. HAT EMPTIED. NO FURTHER REQUESTS AT THIS TIME. CALL LIGHT WITHIN REACH.
--- NOTE | 2020-04-29 01:10 | NUR ---
DISCUSSED CARE GOALS FOR 20 PLUS MINUTES. QUESTIONS ANSWERED. ELEVATED FEET ON PILLOWS DUE TO EDEMA. CALL LIGHT WITHIN REACH.
--- NOTE | 2020-04-29 03:28 | NUR ---
pt AMBULATING INDEPENDENTLY IN [place].
--- NOTE | 2020-04-29 03:58 | NUR ---
CALL LIGHT ON. PROVIDED FRESH WATER. RECORDED VOID AND LOOSE BM. ASSESSMENT DONE. CALL LIGHT WITHIN REACH.
--- NOTE | 2020-04-29 05:13 | NUR ---
IN TO DO MORNING VITALS AND I&O. LAB DRAWN DONE. pt RESTING IN BED. NO NEEDS AT THIS TIME. CALL LIGHT WITHIN REACH. PORT ACCESSED AND HEP LOCKED PER PROTOCOL.
--- NOTE | 2020-04-29 06:46 | NUR ---
pt DID NOT SLEEP MUCH DURING SHIFT. REPORTED THIS WAS NORMAL WHEN TAKING STEROIDS. AMBULATED IN HALLS. INDEPENDENT IN ROOM. PORT HEP LOCKED. TOLERATING REGULAR DIET. QS OUTPUT. BMS. MIDLINE INCISION HAS STERISTRIPS NO DRAINAGE NOTED. ONE LAP SITE HAS STERISTRIP, OTHER IS OPEN TO AIR, NO DRAINAGE. USES CALL LIGHT APPROPRIATELY.
--- NOTE | 2020-04-29 08:09 | NUR ---
REPORT RECEIVED. PT IN BED AWAKE. PAIN REPORTED 4/10. PRN TYLENOL ADMINSTERED, PT REPORTS PAIN RIGHT FLANK AREA. DENEIS FURTHER NEEDS. CALL LIGHT IN REACH
--- NOTE | 2020-04-29 09:56 | NUR ---
PATIENT UP TO BATHROOM AND BACK TO BED, IND. FRESH WATER GIVEN. AM CARE DONE. CALL LIGHT IN REACH. NO FURTHER NEEDS AT THIS TIME.
--- NOTE | 2020-04-29 10:50 | NUR ---
ASSESSMENT COMPLETED. MEDICATIONS GIVEN. INCISION IWTH STERISTRIPS AND WELL APPROXIMATED. NO S/SX OF INFECTION. BOWEL TONES ACTIVE. PT REPORTS PASSING STOOL AND FLATUS. VOIDING LARGE AMOUNTS WITH ORAL LASIX. PAIN IMPROVED TO 3/10 WITH TYLENOL ADMINSTRATION. NO NAUSEA/EMESIS. PLAN TO AMBULATE HALLS IN LITTLE BIT.
--- NOTE | 2020-04-29 11:13 | NUR ---
PT OUT AMBULATING HALLS.
[2020-04-29] MEDS ORDERED: ACETAMINOPHEN500 MG PO (13:02)
[2020-04-29] MEDS ORDERED: FUROSEMIDE20 MG PO (13:03)
[2020-04-29] MEDS ORDERED: FAMOTIDINE20 MG PO (13:03)
[2020-04-29] MEDS ORDERED: DIFLUCAN100 MG PO ×2 (13:04→13:05)
[2020-04-29] MEDS ORDERED: CIPRO500 MG PO (13:06)
[2020-04-29] MEDS ORDERED: POTASSIUM CHLO20 ME1 PO (13:09)
[2020-04-29] MEDS ORDERED: DIFLUCAN200 MG PO (13:49)
--- NOTE | 2020-04-29 13:51 | OR ---
[facility] [address], [place] [address] Signed DATE OF OPERATION: 04/24/2020 SURGEON: Stewart Erazo MD PREOPERATIVE DIAGNOSES: 1. Longstanding chronic Crohn disease of terminal ileum with stricture development. 2. Refractory Crohn disease intolerant or unimproved by multiple biologic agents. 3. Recent acute abdomen with midgut segmental inflammatory changes and extraluminal air and fluid collection. POSTOPERATIVE DIAGNOSES: 1. Longstanding chronic Crohn disease of terminal ileum with stricture development. 2. Refractory Crohn disease intolerant or unimproved by multiple biologic agents. 3. Recent acute abdomen with midgut segmental inflammatory changes and extraluminal air and fluid collection. 4. Fibrinopurulent exudates within matted small bowel loops. 5. Gross evidence of interloop fistulas. 6. Marked inflammatory changes of terminal ileum with stricture ileocecal valve. PROCEDURE: 1. Laparoscopy with intraabdominal examination, evaluation of small bowel in its entirety. 2. Conversion to open minilaparotomy with segmental small bowel resection with end-to-end enteroenterostomy. 3. Ileocecectomy with [id number]-[id number] ileal right colostomy (prolonged, complicated, and difficult). PERSONNEL REPRESENTATIVE: Alice Gleason RN and Jaswinder Dee RN. ANESTHESIA: 1. General endotracheal; Jacobo Herrera, and local 10 mL of 0.25% Marcaine with epinephrine. 2. Postoperative tap block. INDICATION: This 25-year-old white woman is a patient of Dr. Peyton Canseco. She has had extreme difficulty related to Crohn disease, which has proven refractory to advance biologic agents and other interventions. She is known to me from the past having been admitted for abdominal pain and flares of Crohn disease. She was referred to [facility] by me for medical management and has been evaluated and most recently anticipating a phase Electronically Signed By: STEWART ERAZO MD 04/29/20 1351 PATIENT NAME: SHANNAN MAYFIELD OPERATIVE REPORT DATE OF : [birth year] REPORT #: [id number] PHYSICIAN: STEWART ERAZO MD PCP: PEYTON CANSECO MD REPORT IS CONFIDENTIAL AND NOT TO BE RELEASED WITHOUT AUTHORIZATION [facility] [address], [place] [address] Signed two clinical trial for a biologic agent in an experimental setting as she has been intolerant or unimproved by Remicade, Humira, Entyvio, and other agents. The patient is chronically anemic, has chronic abdominal pain and other extraintestinal manifestations including a nonhealing abscess like wound on the top of her scalp. She has good support from her parents, but remains quite troubled by her Crohn disease problem. She presented to the emergency room on April 23, 2020, with severe mid abdominal pain and right lower abdominal pain and a CT scan was performed by Dr. Freeman, which showed no evidence of appendicitis, but did show probable terminal ileitis (well-known and well-established) as well as a mid intestinal inflammatory process with extraluminal air consistent with perforation of bowel. She was admitted by co, given fluid resuscitation, broad-spectrum antibiotics, and intravenous steroid hydrocortisone IV 100 mg q.8 hours. She has been closely observed and her initial severe abdominal tenderness has largely abated, though she remains tender. The full consideration of her goals of therapy and so forth, consideration is made for laparoscopy at this time to assess the extent of her problem and surgical remedy as appropriate. Were it not for extraluminal air and the strong possibility of enteric leakage and abscess development, continued medical management might be a consideration; however, she remains tender, though improved and white count now 7.2, down from 22,000, but with no foreseeable medical assistance for this problem. Currently, I have recommended at least a laparoscopic evaluation and depending on findings, possible surgical resection or other intervention. She and her parents understand the risks of bleeding, infection, complications related to resectional therapy and other unforeseen complications including failure to improve her symptoms. Understanding this, they wished to proceed. FINDINGS: On laparoscopy, fibrinopurulent exudate was noted as well as somewhat purulent appearing fluid in the right paracolic gutter and elsewhere. Marked inflammatory changes of segment of what would be considered the ilium in the junction between jejunum and ileum with what appeared to be interloop fistulization and obvious recent perforation. Terminal ileum itself was chronically inflamed with a terminal ileal stricture. It is recalled that she did undergo endoscopic dilation of this stricture at [facility], but she has always been bothered by chronic obstruction of the terminal ileum. Conversion to open operation allowed for segmental resection of the most dominantly affected small bowel with normal bowel in the proximal and distal segments of the resection. The resection measured 16 inches in total of a small bowel in that area. Given her ongoing issues with her terminal ileum and so on, terminal ileal resection and cecectomy was also performed with a vqcr-tv-ayay ileal right colonic anastomosis. At present, there is no gross severe disease of the remaining of the small bowel. The Electronically Signed By: STEWART ERAZO MD 04/29/20 1351 PATIENT NAME: SHANNAN MAYFIELD OPERATIVE REPORT DATE OF : [birth year] REPORT #: [id number] PHYSICIAN: STEWART ERAZO MD PCP: PEYTON CANSECO MD REPORT IS CONFIDENTIAL AND NOT TO BE RELEASED WITHOUT AUTHORIZATION [facility] [address], [place] [address] Signed small bowel has been preserved as much as possible allowing for resection of the perforated segment and obstructed segment distally. DESCRIPTION OF PROCEDURE: The patient was brought to the operating room, given a general endotracheal anesthetic. She had been on broad-spectrum antibiotics preoperatively including meropenem. DVT prophylaxis has been undertaken as well given her increased risk for such problems given inflammatory bowel disease. A Toney catheter was placed. The abdomen was prepared with a chlorhexidine solution and draped sterilely. An infraumbilical incision was made and using an open Mariely cannula technique, pneumoperitoneum was achieved to a level of 14 mmHg of carbon dioxide gas. Intraabdominal inspection was undertaken showing turbid fluid including the right paracolic gutter, which was certainly infected looking. Mindful that the process seemed to be in the left mid and upper abdomen, examination of that area showed some dilated loops of bowel with market inflammation. A 5 mm suprapubic port was placed and another 5 mm right upper quadrant port placed allowing for two-hand manipulation of the bowel. From the right side of the abdomen, small bowel was gently manipulated, ultimately identifying the ligament of Treitz. The small bowel was sequentially gathered and examined from proximal to distal. In approximately the mid to distal small bowel was a process in question, which was quite markedly inflamed and with fibrinopurulent exudate. There was no gross leakage of bile per se, but there was bile staining and definite findings consistent with a CT scan preoperatively. This segment was carefully inspected and found to have probable interloop fistulization in at least 1 area. The bowel was further examined more distally, ultimately encountering the bowel that looked entirely normal. Attempts at examination of the terminal ileum from the left side of the table were relatively unsuccessful due to the bulkiness of some distended normal small bowel. The circumstances of perforation, fibrinopurulent exudate, underlying Crohn disease, and few available medical approaches for management, more definitive surgical intervention was deemed appropriate. The trocars were removed and the infraumbilical incision was extended allowing for minilaparotomy. Prior to all of this, the bowel in question was maintained in its level vial inside grinder with the laparoscopic instrument, so it could be easily delivered through the small incision. The small bowel was indeed delivered out of the abdominal cavity through the small infraumbilical incision and a proximal normal segment identified and ultimately distal normal segment identified in the intervening severely diseased Crohn segment were fully isolated. Indeed, there was internal fistulization of bowel and stricture formation likely causing obstruction and probably contributing to her perforation. Segmental Electronically Signed By: STEWART ERAZO MD 04/29/20 1351 PATIENT NAME: SHANNAN MAYFIELD OPERATIVE REPORT DATE OF : [birth year] REPORT #: [id number] PHYSICIAN: STEWART ERAZO MD PCP: PEYTON CANSECO MD REPORT IS CONFIDENTIAL AND NOT TO BE RELEASED WITHOUT AUTHORIZATION [facility] [address], [place] [address] Signed resection was deemed most appropriate. The mesentery corresponding to the affected segment of bowel was scored with electrocautery and a very thickened and highly vascular mesentery carefully secured with sequential application of hemostats and securing the vascular arcades with 0 silk ties. Over-sewing with 3-0 silk suture was required in a few areas. Good hemostasis was ultimately obtained. The normal bowel proximally and distally was then transected with a LOYD stapling device. The resected bowel measured 14 inches in total length. An end-to-end enteroenterostomy was undertaken in a 2-layer technique with interrupted 3-0 silk suture for the serosal layer and interrupted 3-0 Vicryl for the mucosal layer. The mesenteric defect was secured with interrupted 3-0 silk suture. Completely normal bowel was noted at the anastomosis. The small bowel was returned to the abdomen and mindful of prior terminal ileal affected bowel, that bowel was ultimately delivered into the abdomen. The terminal ileum was quite markedly inflamed with Crohn disease and a stricture at the ileocecal valve was noted. The cecum itself was completely normal. The cecum was mobilized with blunt electrocautery dissection allowing for it to be delivered into the wound more fully. The intervening segment between the recently resected bowel and that was affected by the ileum had a reasonable segment that could be preserved. Ileocecectomy was deemed most advisable under the circumstances. Again, the mesentery to the terminal ileum was scored as was the portion of the cecum. Notably, the appendix was small and normal. The vascular pedicles of the ileum and cecum were secured with 3-0 silk sutures rather than simple ties due to the vascularity and thickness of the mesentery. The cecum was transected transversely with a 75 mm LOYD stapling device as was the normal portion of the ileum. Initially an end-to-side anastomosis was considered advisable, but mindful of the possibility and probability of recurrent Crohn disease, a nmlc-qg-lfby ileal right colostomy was deemed more advisable. This was accomplished in a 2-layer technique with interrupted 3-0 silk suture in the serosal layer and interrupted 3-0 Vicryl for the mucosal layer. A generous auxi-fu-utcm anastomosis was accomplished. The mesenteric defect was secured with interrupted 3-0 silk sutures. The bowel was returned to the abdominal cavity. Copious irrigation of the abdominal cavity was undertaken with warm saline solution over 3 L in total. Infected and turbid looking fluid was suctioned free completely. The small bowel now and remaining the abdomen appears completely free of Crohn disease, though we are mindful that it is present microscopically. The omentum was replaced over the abdominal contents and the short incision was reapproximated with running #1 PDS suture. The skin was irrigated and skin closed with interrupted 3-0 Vicryl after application of 10 mL of 0.25% Marcaine with epinephrine. Steri-Strips were applied. The small trocar sites were closed with interrupted 3-0 Vicryl and Steri-Strips were applied there as well. Silver sponge dressing was applied. The patient then underwent a tap block by the informaticist. She was ultimately Electronically Signed By: STEWART ERAZO MD 04/29/20 1351 PATIENT NAME: SHANNAN MAYFIELD OPERATIVE REPORT DATE OF : [birth year] REPORT #: [id number] PHYSICIAN: STEWART ERAZO MD PCP: PEYTON CANSECO MD REPORT IS CONFIDENTIAL AND NOT TO BE RELEASED WITHOUT AUTHORIZATION [address] [address] Signed extubated and transferred to the recovery room in good condition having suffered no complications. The operation was prolonged, complicated, and difficult lasting from 5:50 p.m. to approximately 10:15 p.m. Sponge, needle, and instrument counts were reported as correct x3. Total estimated blood loss 300 mL. Stewart Erazo MD JM/MODL /[id number] cc: Peyton Canseco MD Copies: ~ Electronically Signed By: STEWART ERAZO MD 04/29/20 1351 PATIENT NAME: SHANNAN MAYFIELD OPERATIVE REPORT DATE OF : [birth year] REPORT #: [id number] PHYSICIAN: STEWART ERAZO MD PCP: PEYTON CANSECO MD REPORT IS CONFIDENTIAL AND NOT TO BE RELEASED WITHOUT AUTHORIZATION
--- NOTE | 2020-04-29 13:59 | NUR ---
PT ALERT, ORIENTED AND LAYING IN BED WATCHING TV. PT STATED THAT STEROIDS ARE GIVING HER PROBLEMS WITH EDEMA AND SHE EXPRESSED SOME DISPLEASURE. ABLE TO EAT SOLID FOOD, PT HONEST ABOUT HER FEELINGS. GAVE BLESSING, WILL FOLLOW
--- NOTE | 2020-04-29 14:54 | PATH ---
[facility] [address], [place] [address] Signed SPECIMEN(S): A SMALL BOWEL AND FISTULA SPECIMEN(S): B ILEOCECAL VALVE SPECIMEN SOURCE: A. SMALL BOWEL AND FISTULA B. ILEOCECAL VALVE CLINICAL HISTORY: Crohn's, bowel perforation. Ileocecal resection. FINAL PATHOLOGIC DIAGNOSIS: A. Small bowel, resection: - Benign small bowel mucosa with patchy transmural chronic active enteritis, granulomas, ulceration, serositis, and fistula formation. - No dysplasia or viral cytopathic effect identified. - Chronic active enteritis and serositis are present at the resection margins. B. Ileocecal, resection: - Benign ileocolonic mucosa with patchy transmural chronic active enteritis, granulomas, and serositis. - Appendix with fibrous obliteration and periappendicitis. - No dysplasia or viral cytopathic effect identified. - Surgical resection margins appear viable. BRP:mfr:C2NR MICROSCOPIC EXAMINATION: Histologic sections of all submitted blocks are examined by light microscopy. These findings, together with the gross examination, support the pathologic diagnosis. GROSS DESCRIPTION: Two specimens are received in two containers, labeled "Shannan White." A. The specimen, labeled "Shannan White," and designated on the requisition "section of small bowel with fistula," is received in formalin and consists of a segment of the small bowel that is adherent onto itself and is 25 cm in length. The internal circumference ranges from 2.0 cm of 0.5 cm. The serosal surface is pink and congested with an adherent portion of mcnulty-brown, multilobulated adipose tissue that is 6.5 x 6.5 x 1.8 cm. The specimen has been previously opened. The mucosal surface is focally ulcerated with a cobblestone pattern which is 1.5 cm from the closest resection margin and 1.8 centimeters from the opposite resection margin. Sectioning PATIENT NAME: SHANNAN WHITE PATHOLOGY DATE OF : [birth year] REPORT #: [id number] PHYSICIAN: KHARI PATHOLOGY PCP: ELIO CRONIN MD REPORT IS CONFIDENTIAL AND NOT TO BE RELEASED WITHOUT AUTHORIZATION [facility] [address], [place] [address] Signed through the bowel wall reveals a cavity within the pericolonic adipose tissue that contains a pink, pasty material. This cavity is adjacent to the adherent portion of adipose tissue on the serosal surface. Analyst Business Analysis sections are submitted in six cassettes. Cassette summary: (A1-A2) resection margins, shave (A3-A4) bowel wall with mucosal ulcerations and cobblestone pattern (A5) portion of bowel wall adherent to itself (A6) bowel wall with adjacent cavity within pericolonic adipose tissue B. The specimen, labeled "Shannan White," and designated on the requisition "ileocecal resection," is received in formalin and consists of a portion of cecum with attached ileocecal valve, appendix and terminal ileum. The specimen has been previously opened. The cecum is 7.5 x 7.0 x 2.5 cm. The appendix is 6.5 x 0.7 cm. The terminal ileum is 13.5 cm in length with an average internal circumference of 2.5 cm. The serosal surface is pink and focally congested with adherent membranous tissue. The terminal ileum is markedly indurated. The mucosal surface of the cecum is pink and finely granular with three areas of red, shaggy disruption that measure up to 2.8 cm in greatest dimension. The terminal ileum mucosa is pink-red, ulcerated with a focal cobblestone pattern. The terminal ileum bowel wall ranges from 0.6 cm up to 1.7 cm in thickness. Sectioning through the appendix reveals a pinpoint lumen and an average wall thickness of 0.3 cm. Analyst [employer] Analysis sections are submitted in seven cassettes. Cassette summary: (B1) distal resection margin (B2) cecum (B3) ileocecal valve (B4-B6) terminal ileum (B7) appendix FB (under the direct supervision of a pathologist) The Gross Description was prepared using a voice recognition system. The report was reviewed for accuracy; however, sound-alike word errors, addition and/or deletions may occur. If there is any question about this report, please contact Client Services. PERFORMING LABORATORY: The technical component was performed by [employer], [address] [place] [address] (Stunner And Shackler: Anuradha Ro MD; CLIA# [id number]). PATIENT NAME: SHANNAN WHITE PATHOLOGY DATE OF : [birth year] REPORT #: [id number] PHYSICIAN: KHARI PATHOLOGY PCP: ELIO CRONIN MD REPORT IS CONFIDENTIAL AND NOT TO BE RELEASED WITHOUT AUTHORIZATION [facility] [address] [place] [id number] Signed Professional interpretation was performed by [employer] [facility], [facility], [address] [address] (CLIA# [id number]). Diagnostician: Jose Baumann MD Pathologist Electronically Signed 04/29/2020 Copies: ~ PATIENT NAME: SHANNAN WHITE PATHOLOGY DATE OF : [birth year] REPORT #: [id number] PHYSICIAN: KHARI PATHOLOGY PCP: ELIO CRONIN MD REPORT IS CONFIDENTIAL AND NOT TO BE RELEASED WITHOUT AUTHORIZATION
--- NOTE | 2020-04-29 15:24 | NUR ---
DISCHARGE INSTRUCTIONS PROVIDED TO PT IN VERBAL AND WRITTEN FORM. PT AWARE OF S/SX OF INFECTION LIFTING LIMIT AND PLAN OF CARE AFTER DISCHARE. PT VERBALIZES UNDERSATNDING. NO FURTHER QUESTIONS. PRICILLA IN TO DISCUSS MEDICATIONS. PORT DEACCESSED AND HEP LOCKED. WNL.
== END 2020-04-29 15:10 | disposition home or self-care (01) | DRG 331 ==
LOC: ED 03:02 → MS 05:37
PROVIDERS: ADMIT Surgery; ATTEND Surgery
PROC: 3E0T3BZ Introduction of Anesthetic Agent into Peripheral Nerves and Plexi, Percutaneous Approach (ICD-10-PCS; 2020-04-24)
PROC: 3E0T33Z Introduction of Anti-inflammatory into Peripheral Nerves and Plexi, Percutaneous Approach (ICD-10-PCS; 2020-04-24)
PROC: 0DJD4ZZ Inspection of Lower Intestinal Tract, Percutaneous Endoscopic Approach (ICD-10-PCS; principal; 2020-04-24 14:45)
PROC: 0DBB0ZZ Excision of Ileum, Open Approach (ICD-10-PCS; 2020-04-24 14:45)
DX: K50.013 Crohn's disease of small intestine with fistula (principal); Z20.828 Contact with and (suspected) exposure to other viral communicable diseases; K50.018 Crohn's disease of small intestine with other complication; B96.20 Unspecified Escherichia coli [E. coli] as the cause of diseases classified elsewhere; G89.18 Other acute postprocedural pain; D64.9 Anemia, unspecified; E86.0 Dehydration; R60.0 Localized edema; E88.09 Other disorders of plasma-protein metabolism, not elsewhere classified; E87.6 Hypokalemia; Z88.8 Allergy status to other drugs, medicaments and biological substances; Z53.31 Laparoscopic surgical procedure converted to open procedure
CPT/HCPCS: 00840; 64488; 74176; 76942; 80048; 80053; 82247; 82465; 83615; 83735; 84100; 84134; 84478; 84550; 84703; 85014; 85018; 85025; 86140; 86850; 86900; 86901; 86920; 87070; 87075; 87077; 87186; 87205; 96374; 96375; 99291; C9803; J0131; J1100; J1170; J1200; J1644; J1720; J1885; J1940; J2185; J2270; J2405; J2543; J2704; J2765; J3010; J3475; J3480; J7030; J7060; J7121; J7512; U0003

== ENCOUNTER 2022-02-05 21:44 | Emergency (ER) | payer OTHER ==
[~2022-02-05] VITALS: Ht 160 cm; Wt 56.7 kg
[~2022-02-05 21:44] MED LIST changes: +CEFDINIR300 MG PO; +CLEOCIN HCL300 MG PO; +DIFLUCAN200 MG PO; +FUROSEMIDE20 MG PO; +HYOSCYAMINE0.125 M1 SL; +OXYCODON-ACETA1 EAC2 PO; +POTASSIUM CHLO20 ME1 PO; +TYLENOL EXTRA500 MG PO; +VITAMIN D21250 MCG PO
--- OUTSIDE RECORDS SUMMARY | 2022-02-05 21:48 | XMS ---
PreManage Notification: SHANNAN MAYFIELD Security Indirect Sales Representative Events No recent Security Events currently on file CRITERIA MET - [facility] - Has Care Guidelines CARE PROVIDERS ELIO CANSECO Family [facility] 03/05/2019-Current PHONE: Unknown MEHRDAD SRIVASTAVA Internal Medicine: Pulmonary Disease 07/23/2021-Current PHONE: Unknown Daniel has no Care Guidelines for this patient. Care History Medical/Surgical 07/23/2021 [facility] - Patient is currently established with [facility]. If patient is seen in the ED during business hours. Please contact CHWs at [facility]. Care Recommendation: This patient has had 5 or more Emergency Department visits in the last 12 months. Patient requires education on the scope and purpose of the ED as an acute care provider not a Primary Care Provider and should not be utilized for chronic conditions. These are guidelines and the provider should exercise clinical judgment when providing care. 07/23/2021 [facility] Patient declined follow up with PCP Dr. Canseco at this time, but will contact clinic if she feels the need. 04/24/2020 [facility] Appropriate use of ED.\T\nbsp; Patient admitted to [facility].\T\nbsp; [place] [facility]12 MO.) [facility] TOTAL 2 NOTE: Visits indicate total known visits. ED/UCC VISIT TRACKING (12 MO.) [facility]22 21[facility] [place] TYPE: Emergency COMPLAINT: - ABNORMAL LABS 07/22/2021 13:20 [facility] [place] TYPE: Emergency COMPLAINT: - ABD PN, LIGHT HEADEDNESS, HEADACHE, ABNORMAL LABS DIAGNOSES: - Allergy status to other drugs, medicaments and biological substances - Hypokalemia - Urinary tract infection, site not specified - Crohn's disease, unspecified, without complications - Other medical terminologist (current) drug therapy - Unspecified abdominal pain - Hypomagnesemia - Contact with and (suspected) exposure to COVID-19 INPATIENT VISIT TRACKING (12 MO.) 07/28/2021 19:09 [facility] TYPE: General Medicine DIAGNOSES: [address]75[address]. Crohn's disease of small intestine with unspecified complications [address]. Fever, unspecified [address]. Other specified diseases of anus and rectum [address]. Anemia, unspecified 04/29/2021 16:59 [facility] TYPE: General Medicine DIAGNOSES: 730[address]. Crohn's disease of large intestine with other complication [address]. Crohn Disease [address]. Other m[facility] (current) drug therapy [address]15[address]. Immunodeficiency due to drugs 630[address]. Crohn's disease of large intestine with fistula 86[address]. Crohn's disease of large intestine with other complication [email or web address]
[2022-02-05] MEDS ORDERED: LEXAPRO10 MG PO (23:02)
[2022-02-05] MEDS ORDERED: DOXYCYCLINE HY100 MG (23:02)
[2022-02-06] MEDS ORDERED: MAGNESIUM400 M1 PO (03:09)
[2022-02-06] MEDS ORDERED: K-TAB ER20 MEQ PO (03:09)
== END 2022-02-06 03:47 | disposition home or self-care (01) ==
LOC: ED 21:44
DX: E87.6 Hypokalemia (principal); E83.42 Hypomagnesemia; K90.9 Intestinal malabsorption, unspecified; Z90.49 Acquired absence of other specified parts of digestive tract; Z88.8 Allergy status to other drugs, medicaments and biological substances
CPT/HCPCS: 36415; 80048; 83735; A9270; J3475; J3480

== ENCOUNTER 2022-08-06 15:18 | Emergency (ER) | payer BC ==
[~2022-08-06] VITALS: Ht 160 cm; Wt 58.6 kg
[~2022-08-06 15:18] MED LIST changes: +DOXYCYCLINE HY100 MG; +LEXAPRO10 MG PO; +MAGNESIUM400 M1 PO
--- OUTSIDE RECORDS SUMMARY | 2022-08-06 15:26 | XMS ---
PreManage Notification: SHANNAN MAYFIELD Security Shelter Advocate Events No recent Security Events currently on file CRITERIA MET - [facility] - Has Care Guidelines CARE PROVIDERS ELIO CANSECO Family [facility] 03/05/2019-Current PHONE: Unknown MEHRDAD SRIVASTAVA Internal Medicine: Pulmonary Disease 07/23/2021-Current PHONE: Unknown Daniel has no Care Guidelines for this patient. Care History Medical/Surgical 07/23/2021 [facility] - Patient is currently established with [facility]. If patient is seen in the ED during business hours. Please contact CHWs at [facility]. Care Recommendation: This patient has had 5 or more Emergency Department visits in the last 12 months. Patient requires education on the scope and purpose of the ED as an acute care provider not a Primary Care Provider and should not be utilized for chronic conditions. These are guidelines and the provider should exercise clinical judgment when providing care. 07/23/2021 [facility] Patient declined follow up with PCP Dr. Canseco at this time, but will contact clinic if she feels the need. 04/24/2020 [facility] Appropriate use of ED.\T\nbsp; Patient admitted to [facility].\T\nbsp; [place] [facility] TOTAL [facility] NOTE: Visits indicate total known visits. ED/UCC VISIT TRACKING (12 MO.) [facility]22 [facility] [place] [facility] [facility] Emergency COMPLAINT: - POSS BLOODCLOTS IN LEGS 02/05/2022 21:[address] [facility] TYPE: Emergency COMPLAINT: - ABNORMAL LABS DIAGNOSES: - Intestinal malabsorption, unspecified - Allergy status to other drugs, medicaments and biological substances - Hypokalemia - Hypomagnesemia - Abnormal finding of blood chemistry, unspecified - Acquired absence of other specified parts of digestive tract INPATIENT VISIT TRACKING (12 MO.) No inpatient visits to display in this time frame [email or web address]
[2022-08-06] MEDS ORDERED: LASIX20 MG PO (17:21)
[2022-08-06] MEDS ORDERED: K-TAB ER20 MEQ PO (17:21)
== END 2022-08-06 17:26 | disposition home or self-care (01) ==
LOC: ED 15:18
DX: K50.90 Crohn's disease, unspecified, without complications (principal); R60.0 Localized edema; Z88.8 Allergy status to other drugs, medicaments and biological substances; Z79.899 Other long term (current) drug therapy
CPT/HCPCS: 93970; 99284-25

== ENCOUNTER 2023-04-28 18:56 | Emergency (ER) | payer BC ==
[~2023-04-28] VITALS: Ht 160 cm; Wt 56.7 kg
[~2023-04-28 18:56] MED LIST changes: +LASIX20 MG PO
[2023-04-28] MEDS ORDERED: RINVOQ45 MG PO (19:13)
[2023-04-28] MEDS ORDERED: MAGNESIUM400 MG PO (19:29)
[2023-04-28 21:03] VITALS: BP 96/66
== END 2023-04-28 21:04 | disposition home or self-care (01) ==
LOC: ED 18:56
DX: E83.42 Hypomagnesemia (principal); Z88.8 Allergy status to other drugs, medicaments and biological substances; Z79.899 Other long term (current) drug therapy
CPT/HCPCS: 96372; 99283; J3475

== ENCOUNTER 2023-09-09 07:53 | Inpatient (IN) | payer BC ==
[~2023-09-09] VITALS: Ht 160 cm; Wt 58.8 kg
[~2023-09-09 07:53] MED LIST changes: +RINVOQ45 MG PO
[2023-09-09] MEDS ORDERED: ONDANSETRON ODT4 MG PO (08:17)
[2023-09-09] MEDS ORDERED: PEPCID20 MG PO (08:18)
[2023-09-09] MEDS ORDERED: TYLENOL EXTRA500 MG PO (08:19)
[2023-09-09] MEDS ORDERED: SKYRIZI600 MG/10 IV (08:20)
[2023-09-09] MEDS ORDERED: SODIUM CHLORIDE 0.9% 1,000 ML IV ONE (08:30)
[2023-09-09] MEDS ORDERED: HYDROmorphone HCL 1 MG/ML SYR IV ONE (08:30)
[2023-09-09 08:55] LABS: BASOPHILS 0.1 % (0-2); EOSINOPHILS 0.5 % (0-6); HEMATOCRIT 32.1 % (35.0-50.0); HEMOGLOBIN 10.7 g/dL (12.0-18.0); MCH 30.2 (27-36); MCHC 33.2 g/dl (30-36); MCV 90.8 fl (81-99); MONOCYTES 19.3 % (0-12); NEUTROPHILS 73.1 % (39-80); PLATELET COUNT 353 K/uL (140-440); RBC 3.54 M/ul (4.3-5.7); RDW 16.6 (10.5-15.0)
[2023-09-09] MEDS ORDERED: HEParin SOD (PORCINE) 5,000 UNIT/0.5 ML SYR SUB-Q SCH (10:43)
[2023-09-09] MEDS ORDERED: FAMOTIDINE 20 MG/ 2 ML VIAL IV SCH (10:44)
[2023-09-09] MEDS ORDERED: KETOROLAC TROMETHAMINE 30 MG/ML VIAL IV PRN (10:45)
[2023-09-09] MEDS ORDERED: ondansetron HCL 4 MG/2 ML VIAL IV PRN ×2 (10:45→15:30)
[2023-09-09] MEDS ORDERED: LACTATED RINGER'S 1,000 ML IV SCH (10:45)
[2023-09-09] MEDS ORDERED: MORPHINE SULFATE 10 MG/ML VIAL IV PRN ×2 (10:45→15:30)
[2023-09-09] MEDS ORDERED: PROCHLORPERAZINE EDISYLATE 10 MG/2 ML VIAL IV PRN ×2 (10:45→15:30)
[2023-09-09] MEDS ORDERED: LACTATED RINGER'S 1,000 ML IV ONE ×2 (10:45→12:18)
[2023-09-09 11:00] LABS: ALBUMIN 1.6 g/dL (3.4-5.0); ALBUMIN/GLOBULIN RATIO 0.62 (1.1-2.4); BILIRUBIN, TOTAL 0.3 ng/dL (0.2-1.0); BUN/CREATININE RATIO 21.21 (6.0-28.6); CALCIUM 7.5 mg/dL (8.5-10.1); CREATININE, SERUM 0.33 mg/dL (0.55-1.02); PROTEIN, TOTAL 4.2 g/dL (6.4-8.2)
[2023-09-09 11:25] VITALS: BP 92/60
[2023-09-09] MEDS ORDERED: MAGNESIUM OXID400 M1 PO (11:40)
--- NOTE | 2023-09-09 11:40 | NUR ---
Spoke with Audrey. She states she lives with her parents. She does not use of any DME, drives, works, and does not have SDOH concerns. She plans on dc to home with her parents. Pt has had perirectal abcess in the past. Denies needs from DM.
[2023-09-09] MEDS ORDERED: ESCITALOPRAM OX20 MG PO (11:41)
[2023-09-09] MEDS ORDERED: VITAMIN D350 MC3 PO (11:42)
[2023-09-09] MEDS ORDERED: ondansetron HCL 4 MG/2 ML VIAL ONE (12:18)
[2023-09-09] MEDS ORDERED: METOCLOPRAMIDE HCL 10 MG/2 ML SDV ONE (12:18)
[2023-09-09] MEDS ORDERED: SUCCINYLCHOLINE IN 0.9% NACL 200 MG/10 ML SYRINGE ONE (12:18)
[2023-09-09] MEDS ORDERED: MIDAZOLAM HCL 2 MG/2 ML VIAL ONE (12:18)
[2023-09-09] MEDS ORDERED: fentaNYL citrate 100 MCG/2 ML VIAL ONE (12:18)
[2023-09-09] MEDS ORDERED: KETOROLAC TROMETHAMINE 30 MG/ML VIAL ONE (12:18)
[2023-09-09] MEDS ORDERED: DEXAMETHASONE SOD PHOS 4 MG/ML VIAL ONE (12:18)
[2023-09-09] MEDS ORDERED: FAMOTIDINE 20 MG/ 2 ML VIAL ONE (12:18)
[2023-09-09] MEDS ORDERED: LIDOCAINE HCL 4% 5 ML AMP ONE (12:18)
[2023-09-09] MEDS ORDERED: propofoL 200 MG/20 ML VIAL ONE (12:18)
--- NOTE | 2023-09-09 12:30 | NUR ---
Patient to the medical floor, alert and oriented x4. Patient's portacath accessed to right chest in ER. This RN unable to get blood return to portacath at this time. Reattempted to access portacath x1, sill unable to get blood return. 22g IV placed to right wrist at this time as pt needs a bolus. Loreto RN in day sugery to come see patient to attempt port access again here shortly.
--- NOTE | 2023-09-09 13:05 | NUR ---
MED REC COMPLETE
[2023-09-09] MEDS ORDERED: CEFAZOLIN SODIUM 2 GM/20 ML SYR IV SCH (14:00)
[2023-09-09] MEDS ORDERED: dexmedeTOMIDine HCl 200 MCG/2 ML VIAL ONE (14:41)
[2023-09-09] MEDS ORDERED: IBLOOD GLUCOSE TEST STRIP 1 EA TEST VI PRN (15:30)
[2023-09-09] MEDS ORDERED: fentaNYL citrate 100 MCG/2 ML VIAL IV PRN (15:30)
[2023-09-09] MEDS ORDERED: METOCLOPRAMIDE HCL 10 MG/2 ML SDV IV PRN (15:30)
[2023-09-09] MEDS ORDERED: OXYCODONE HCL 5 MG TAB PO PRN (15:30)
[2023-09-09] MEDS ORDERED: droPERidol 5 MG/2 ML VIAL IV PRN (15:30)
[2023-09-09] MEDS ORDERED: NALOXONE HCL 0.4 MG SYR IV PRN (15:30)
--- NOTE | 2023-09-09 15:30 | HP ---
[facility] [address] [place] [address] Signed ADMISSION DATE: 09/09/2023 REASON FOR ADMISSION: Recurrent perineal abscess underlying longstanding complicated Crohn disease. HISTORY OF PRESENT ILLNESS: This 28-year-old white woman is well known to me from the past having undergone laparotomy and segmental resection of ileum and portion of the colon for obstructing Crohn disease. She has a complex past medical history related to her Crohn disease and is managed by passementerie worker AKUA. She does take biologic agents, though notably had significant adverse reactions with Remicade and Humira. She is on Rinvoq orally and episodic administration monthly of Skyrizi from my understanding. Other home medications include magnesium. 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 She presented to the emergency room with severe perianal pain. She is accompanied by her mother. She has had a chronic draining setons placed elsewhere and notes that she occasionally has difficulty with the perianal tissue and setons "plugging up." She is uncertain if that is a problem now. She has had no fever, chills, or sign of systemic sepsis. Lab studies obtained at my request this morning included a CBC with a white count of 3.4, hematocrit 32.1, platelets 353,000 and a C-reactive protein of 5.57 (normal up to 0.9). ER request by Dr. Mejia, emergency room physician for further assessment has been made. Her last menstrual period was approximately three weeks ago. REVIEW OF SYSTEMS: Denies any shortness of breath or chest pain. She has had no fever or chills. She has significant pain in the perianal area. She has had some drainage. PHYSICAL EXAMINATION: GENERAL: Pleasant white woman who does not look systemically toxic at this time. VITAL SIGNS: Temperature is 98.2, pulse is 83, blood pressure 92/59, previously 117/85. NECK: Shows no thyromegaly. CHEST: Clear. HEART: Regular. There is a right subclavian Port-A-Cath device in place. ABDOMEN: Nontender. RECTAL: Examination of perineum in the presence of nurse and her mother shows perianal drainage of a bloody purulent type. There is at least one vessel loop seton in place Electronically Signed By: STEWART ERAZO MD 09/09/23 1530 PATIENT NAME: SHANNAN MAYFIELD HISTORY AND PHYSICAL DATE OF : [birth year] REPORT #: [id number] PHYSICIAN: STEWART ERAZO MD PCP: ELIO CRONIN MD REPORT IS CONFIDENTIAL AND NOT TO BE RELEASED WITHOUT AUTHORIZATION [facility] [address] [place], [place] [address] Signed unrelated to the area in question, which is in the right lateral perianal area. EXTREMITIES: Show no clubbing, cyanosis, or edema. ASSESSMENT: The patient has fistulizing perianal Crohn disease and has had complex inflammatory bowel disease all along. I believe exam under anesthesia, better drainage and probably placement of another draining seton would be most beneficial to her. We will admit for fluid resuscitation. We will give IV antibiotics as she is relatively immunosuppressed related to her biologics use for Crohn disease and provide for drainage of her perineum today. The risk of bleeding, infection, failure to cure the problem, and other unforeseen complications was reviewed with the patient and her mother. They understand and wished to proceed. MD ROSANNE Caraballo/JYOTI /[id number] cc: MD Dr Basilio Abdi [facility] Copies: ~ Electronically Signed By: STEWART ERAZO MD 09/09/23 1530 PATIENT NAME: SHANNAN MAYFIELD HISTORY AND PHYSICAL DATE OF : [birth year] REPORT #: [id number] PHYSICIAN: STEWART ERAZO MD PCP: ELIO CRONIN MD REPORT IS CONFIDENTIAL AND NOT TO BE RELEASED WITHOUT AUTHORIZATION
--- NOTE | 2023-09-09 15:35 | NUR ---
09/09/23 1535 Cynthia Hill 1509- PT ARRIVES TO PACU, NON REACTIVE TO STIMULUS. SEMI LAU POSITION, OPA IN PLACE, MAINTAINING OWN AIRWAY WITH JUST OPA. O2 AT 6L PER MASK, LR INFUSING TO RIGHT CHEST PORT. ABD SOFT, NON DISTENDED. 1515- MEDICATED WITH EPHEDRINE PER STEWART SANTIAGO DUE TO 73/[address] BP. [address] MON[address]ORS IN PLACE. 1528- PT REACTIVE TO LOUD VERBAL AND TAPPING ON SHOULDER BY COMPENSATION PROGRAMS MANAGER. PT STARTLES AWAKE LOOKING AROUND. FOLLOWS COMMANDS TO REMOVE OPA, O2 REMAINS IN PLACE AT THIS TIME. 1531- O2 SATS REMAIN 100% ON 6L PER MASK, MOVED TO ROOM AIR AT THIS TIME. WILL CONTINUE TO MONITOR.
[2023-09-09 16:05] VITALS: BP 96/54
--- NOTE | 2023-09-09 16:18 | NUR ---
Patient back from surgery dept. Patient awake, alert and oriented x4. Patient reports tolerable pain at this time. Two seton rectal tubes noted, scant dez blood on kalpana-pad. IV fluids restarted per provider order. Patient provided with fresh water. Patient's vital signs are stable at this time. CPOX intact, sp02 95% on room air.
[2023-09-09] MEDS ORDERED: AMOXICILLIN/CLAVULANATE K 500 MG TAB PO SCH (17:00)
[2023-09-09 17:21] VITALS: BP 94/61
[2023-09-09 18:30] VITALS: BP 97/60
[2023-09-09 18:53] VITALS: BP 97/60
--- NOTE | 2023-09-09 19:11 | NUR ---
SHIFT REPORT RECEIVED FROM ESTER RN, PT AWAKE AND ALERT, DENIES NEED FOR PAIN AT THIS TIME, RESTING, RESP EVEN AND REG.
[2023-09-09 20:45] VITALS: BP 99/62
--- NOTE | 2023-09-09 20:45 | NUR ---
PT AWAKE AND ALERT, DENIES PAIN AT THIS TIME, VS DONE AND STABLE FOR PT, ASSESSMENT COMPLETED, IVF INFUSING WELL PER PORT IN RIGHT UPPER CHEST, SITE INTACT, SL IN R FOREARM FLUSHES WELL, SCDS IN PLACE, RECTAL DRAIN TUBES NOTED, LIGHT PERICARE GIVEN AND PERIPAD CHANGED FOR SCANT SEROUS SANG FLUID, FRESH WATER GIVEN.
[2023-09-09] MEDS ORDERED: FAMOTIDINE 20 MG TAB PO SCH (21:00)
[2023-09-09] MEDS ORDERED: metroNIDAZOLE 250 MG TAB PO SCH (22:00)
--- NOTE | 2023-09-09 22:35 | NUR ---
PT AWAKE, RECENTLY UP TO VOID 250ML MARQUISE URINE, HAD MEDIUM SOFT ANDERSEN STOOL, PT BACK TO BED, REQUESTING OXYCODONE, MEDICATED WITH 10MG PER ORDER FOR PAIN 6/ IN RECTAL AREA, REPORTS HAVING STOOL CAUSED DISCOMFORT. ANTIBODIC HUNG AND INFUSING WELL PER ORDER, PO A/B GIVEN WITH PUDDING, PT WITHOUT OTHER COMPLAINTS.
[2023-09-10] VITALS (8 sets, daily range): BP systolic 86–97; BP diastolic 49–60
--- NOTE | 2023-09-10 00:01 | NUR ---
NEW LR BAG HUNG, PORT SITE WNL, DRESSING INTACT, DISCUSSED USE OF SITZ BATH, PT WOULD LIKE TO WAIT TO LATER IN THE MORNING TO DO THIS, PT REPORTS PAIN DOWN TO A 2/10, PT RESTING.
--- NOTE | 2023-09-10 02:20 | NUR ---
PT ASLEEP, AWAKEN FOR VS, BP ON LEFT ARM 88/54 (61), HR 82, PT DENIES PAIN, DENIES NEED TO GET UP TO VOID, PLAN TO RECHECK IN A FEW MINUTES, PT DENIES DRAINAGE OR LEAKAGE FROM RECTUM.
--- NOTE | 2023-09-10 02:30 | NUR ---
PT REMAINS AWAKE, BP RECHECKED ON RIGHT ARM, NOW 97/60 (68), PT DENIES NEED FOR PAIN MEDS AT THIS TIME. IVF INFUSING WELL.
--- NOTE | 2023-09-10 04:30 | NUR ---
PT AWAKE AND ALERT, REQUESTING PAIN MED, VS STABLE, BP CONTINUES TO RUN LOW 91/51, PT REQUESTING PAIN MED, MEDICATED PER ORDER WITH OXYCODONE 10MG FOR RECTAL PAIN 12/01, SCDS REMAIN IN PLACE, PT DENIES WANTING TO USE THE SITZ BATH AT THIS TIME, REQUEST REMBERTO BOTTLE, GIVEN PER REQUESTS. IVF INFUSING WELL PER PORT, PT RESING.
--- NOTE | 2023-09-10 06:32 | NUR ---
PT AWAKE, RT ANTIBODICS GIVEN, PO A/B GIVEN WITH PUDDING, PT STATES PAIN ALOT LESS, NOW AT 2/, IVF INFUSING WELL, PT WITHOUT FURTHER REQUEST.
--- NOTE | 2023-09-10 08:14 | NUR ---
MEDICATION ASSISTANT ENTERED ROOM FOR HOURLY ROUNDS ON PT. PT WAS LAYING FLAT IN BED WITH HER EYES CLOSED RESTING. MEDICATION ASSISTANT UPDATED THE PT BOARD AND CHECKED THE CALL LIGHT WAS WITHIN PT REACH. MEDICATION ASSISTANT LEFT THE ROOM TO LET THE PT SLEEP.
--- NOTE | 2023-09-10 10:15 | NUR ---
Patient reports she is a bit nauseated after eating breakfast. Zofran 4mg iV admin at this time.
--- NOTE | 2023-09-10 10:24 | NUR ---
Patient reports her nausea is better. Patient assisted to bathroom for ordered sitz bath. Patient recently had a medium light brown formed stool.
--- NOTE | 2023-09-10 10:40 | NUR ---
NETBACKUP ADMIN ENTERED ROOM TO RECORD VS AND I&OS. PT STATED NO COMPLAINTS OR CONCERNS. RN WAS IN THE ROOM. CALL LIGHT WITHIN REACH
--- NOTE | 2023-09-10 10:58 | NUR ---
Toradol 30mg IV admin at this time for reports of 5/10 rectal pain. Patient reports the sitz bath was therapeutic.
[2023-09-10] MEDS ORDERED: OXYCODONE HCL5 MG PO (12:59)
[2023-09-10] MEDS ORDERED: AMOX TR-K CLV1 EACH PO (13:01)
[2023-09-10] MEDS ORDERED: METRONIDAZOLE250 MG PO (13:01)
--- NOTE | 2023-09-10 16:08 | NUR ---
TORB to place discharge order and send patient home.
[2023-09-10] MEDS ORDERED: HEParin SOD (PORCINE) 500 UNIT/5 ML ML IV ONE (16:30)
--- NOTE | 2023-09-10 16:36 | NUR ---
EDITOR TRADE JOURNAL TOOK PT VITALS AND I&OS BEFORE DISCHARGE. RN AND PHARMACY WAS IN THE ROOM
[2023-09-10] MEDS ORDERED: metroNIDAZOLE 250 MG TAB PO SCH (17:00)
--- NOTE | 2023-09-11 09:48 | OR ---
[facility] [address] [place], [place] [address] Signed DATE OF OPERATION: 09/09/2023 SURGEON: Stewart Erazo MD PREOPERATIVE DIAGNOSES: 1. Longstanding fistulizing Crohn disease. 2. Right lateral perianal abscess with incomplete necessitation. 3. Longstanding right anterior draining seton. POSTOPERATIVE DIAGNOSES: 1. Longstanding fistulizing Crohn disease. 2. Right lateral perianal abscess with incomplete necessitation. 3. Longstanding right anterior draining seton. PROCEDURE: 1. Exam under anesthesia. 2. Rectal biopsy. 3. Drainage of right lateral perianal fistula and fistulous tract with placement of yellow vessel loop seton. 4. Replacement of right anterior chronic fistula drain with yellow vessel loop seton. ANESTHESIA: General endotracheal, Stewart Lopez CRNA, and local 10 mL of 0.25% Marcaine with epinephrine. INDICATION: This 28-year-old white woman is well-known to me from the past. She is a patient of Dr. Peyton Canseco and has much of her Crohn disease care at [facility]. She has undergone bowel resection by me for obstruction related to Crohn disease. She is notably intolerant and unable to take conventional biologic agent including Humira and Remicade. 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 She presented to the emergency room today with severe perianal pain and some perianal drainage. She has a chronic right anterior anal draining seton in place. Clinical examination shows her to have incomplete drainage of a right lateral perianal abscess and a previously placed seton in the right anterior aspect. She shows no sign of perineal generalized infection. I recommend exam under anesthesia or completion of drainage of the right lateral perianal abscess and placement of a chronic draining yellow vessel loop seton as well as possible replacement of her right anterior perianal seton. The risk of bleeding, infection, failure to cure the problem, need for more elaborate operations was Electronically Signed By: STEWART ERAZO MD 09/11/23 0947 PATIENT NAME: SHANNAN MAYFIELD OPERATIVE REPORT DATE OF : [birth year] REPORT #: [id number] PHYSICIAN: STEWART ERAZO MD PCP: PEYTON CANSECO MD REPORT IS CONFIDENTIAL AND NOT TO BE RELEASED WITHOUT AUTHORIZATION [facility] [address] [place], [place] [address] Signed reviewed with the patient and her mother, understand and wished to proceed. FINDINGS: Incomplete drainage of right lateral perirectal/anal abscess was noted. The fistulous opening connected independently to the right lateral anal canal at the dentate line. The mucosa of the rectum appeared chronically inflamed, but without sign of ulceration proper. The rectal biopsy was obtained. The lateral fistulous tract did not connect to the previous fistulous opening the right anterior aspect and was independently drained with a yellow vessel loop seton. The previously placed seton in the right anterior aspect did show that the knot was underneath the mucosal area, which may have contributed to some degree of her issue. The drain was chronic and old and was removed and replaced with a fresh yellow vessel loop. DESCRIPTION OF PROCEDURE: The patient was brought to the operating room, given a general endotracheal anesthetic and placed in a prone karen-knife position. Preoperative antibiotic, Flagyl and Ancef had been given. The buttocks were taped apart demonstrating perianal drainage on the right aspect mostly. The perianal area was prepared with a Betadine based solution and draped sterilely. Examination showed incomplete drainage of a right lateral perianal abscess. This area was manipulated and some minimal purulence was withdrawn. The anal retractor was placed to visualize in the rectal mucosa, which did have chronic inflammatory appearance, but no sign of ulceration or abscess change. The small portion of the rectum was biopsied by elevating mucosa with forceps and excising with sharp dissection. Biopsy site was then secured for hemostasis with interrupted 2-0 chromic suture. The right anterior chronic draining seton was noted. This was manipulated showing that the knot had been somewhat stuck beneath the mucosal layer. This was old and quite markedly discolored and was excised. It was replaced with a fresh yellow vessel loop. That fistulous tract, though chronic, did not appear to have purulence or undrained material at this time. The right lateral offending lesion was gently probed with a lacrimal duct probe and found not to connect with the other fistulous opening nor elsewhere, but instead directly to the anal canal just above the dentate line. The lacrimal duct probe was allowed to penetrate through to the superior aspect of the crypt drawing with it a yellow vessel loop, which was ultimately tied into place. Irrigation was undertaken and all of the area appeared to be much improved by conclusion. A peripad was applied after application of 10 mL of 0.25% Marcaine with epinephrine. She tolerated the procedure well, was ultimately returned to the supine position, extubated, and transferred to the recovery room in good condition having suffered no complication. Blood loss was less than 10 mL. Sponge, needle, and instrument counts reported as correct x3. Electronically Signed By: STEWART ERAZO MD 09/11/23 0947 PATIENT NAME: SHANNAN MAYFIELD OPERATIVE REPORT DATE OF : [birth year] REPORT #: [id number] PHYSICIAN: STEWART ERAZO MD PCP: PEYTON CANSECO MD REPORT IS CONFIDENTIAL AND NOT TO BE RELEASED WITHOUT AUTHORIZATION [address] [place], [place] [address] Signed MD ROSANNE Caraballo/JYOTI /[id number] cc: MD DR. ISELA Abdi, Department of Gastroenterology Copies: ~ Electronically Signed By: STEWART ERAZO MD 09/11/23 0947 PATIENT NAME: SHANNAN MAYFIELD OPERATIVE REPORT DATE OF : [birth year] REPORT #: [id number] PHYSICIAN: STEWART ERAZO MD PCP: PEYTON CANSECO MD REPORT IS CONFIDENTIAL AND NOT TO BE RELEASED WITHOUT AUTHORIZATION
--- NOTE | 2023-09-13 11:42 | PATH ---
[facility] [address] [facility] [place], [place] [address] Signed SPECIMEN(S): A RECTAL BIOPSY SPECIMEN SOURCE: A. RECTAL BIOPSY CLINICAL HISTORY: Rectal/anal fistula FINAL PATHOLOGIC DIAGNOSIS: Rectum, biopsy: - Colonic mucosa with no significant pathologic changes BRP MICROSCOPIC EXAMINATION: Histologic sections of all submitted blocks are examined by light microscopy. These findings, together with the gross examination, support the pathologic diagnosis. GROSS DESCRIPTION: The specimen, labeled and designated "Cindy rectal biopsy," is received in formalin and consists of one huntley soft tissue fragment, 0.7 cm. Entirely submitted in (A1). VB (under the direct supervision of a pathologist) The Gross Description was prepared using a voice recognition system. The report was reviewed for accuracy; however, sound-alike word errors, addition and/or deletions may occur. If there is any question about this report, please contact Client Services. ADDITIONAL NOTES: Immunohistochemical and/or in situ hybridization studies if performed in this case included appropriate positive controls that reacted as expected. This test was developed and its performance characteristics determined by [facility]. It has not been cleared or approved by the U.S. Food and Drug Administration. The FDA has determined that such clearance or approval is not necessary. This test is used for clinical purposes. It should not be regarded as investigational or for research. [facility] is certified under the Clinical Laboratory Improvement Amendments of 1988 (CLIA) as qualified to perform high complexity clinical laboratory testing. PATIENT NAME: SHANNAN MAYFIELD PATHOLOGY DATE OF : [birth year] REPORT #: [id number] PHYSICIAN: KHARI PATHOLOGY PCP: ELIO CRONIN MD REPORT IS CONFIDENTIAL AND NOT TO BE RELEASED WITHOUT AUTHORIZATION [address] [place] [address] Signed PERFORMING LABORATORY: Technical component was performed by [facility], [address] [place] [address] (CLIA# [id number]). Professional interpretation was performed by [facility] Pathology - [address] [id number] Diagnostician: Jose Baumann MD Pathologist Electronically Signed 09/13/2023 Copies: ~ PATIENT NAME: SHANNAN MAYFIELD PATHOLOGY DATE OF : [birth year] REPORT #: [id number] PHYSICIAN: KHARI BAUER PCP: ELIO CRONIN MD REPORT IS CONFIDENTIAL AND NOT TO BE RELEASED WITHOUT AUTHORIZATION
== END 2023-09-10 17:15 | disposition home or self-care (01) | DRG 348 ==
LOC: ED 07:53 → MS 10:44
PROVIDERS: Emergency Medicine; ADMIT Surgery; ATTEND Surgery
PROC: 0DBP7ZX Excision of Rectum, Via Natural or Artificial Opening, Diagnostic (ICD-10-PCS; 2023-09-09)
PROC: 0DQQ7ZZ Repair Anus, Via Natural or Artificial Opening (ICD-10-PCS; principal; 2023-09-09 16:00)
DX: K50.914 Crohn's disease, unspecified, with abscess (principal); D84.9 Immunodeficiency, unspecified; K50.913 Crohn's disease, unspecified, with fistula; F32.A Depression, unspecified; F41.9 Anxiety disorder, unspecified; Z98.890 Other specified postprocedural states; Z88.8 Allergy status to other drugs, medicaments and biological substances; Z79.899 Other long term (current) drug therapy; Z87.01 Personal history of pneumonia (recurrent)
CPT/HCPCS: 00902; 36415; 80053; 84703; 85025; 86140; 96374; 99284-25; A9270; J0330; J0690; J1100; J1170; J1644; J1885; J2250; J2405; J2704; J2765; J3010; J7030; J7121

== ENCOUNTER 2025-02-13 05:54 | Day surgery (SDC) | payer BC ==
[~2025-02-13] VITALS: Ht 160 cm; Wt 64.0 kg
[~2025-02-13 05:54] MED LIST changes: +AMOX TR-K CLV1 EACH PO; +ESCITALOPRAM OX20 MG PO; +LACTATED RINGER'S 1,000 ML IV SCH; +MAGNESIUM OXID400 M1 PO; +METRONIDAZOLE250 MG PO; +ONDANSETRON ODT4 MG PO; +OXYCODONE HCL5 MG PO; +PEPCID20 MG PO; +SKYRIZI600 MG/10 IM; +VITAMIN B121000 MCG SUB-Q; +VITAMIN D350 MC3 PO
[2025-02-13 06:16] VITALS: BP 100/62
--- NOTE | 2025-02-13 06:44 | NUR ---
0640- NO BLOOD RETURN NOTED ON PORT ACCESS. PT STATES THIS IS NORMAL FOR HER. STATES DR HAS STATED IF PORT FLUSHES OK TO USE. PHONE CALL TO TONY SANTIAGO WITH UPDATE. LR INFUSING WITH OUT DIFFICULTY. WILL USE PORT PER TONY SANTIAGO.
[2025-02-13] MEDS ORDERED: LIDOCAINE HCL 1% 5 ML SDV INJ ONE (07:00)
[2025-02-13] MEDS ORDERED: IBLOOD GLUCOSE TEST STRIP 1 EA TEST VI PRN ×2 (07:00→07:30)
[2025-02-13] MEDS ORDERED: FAMOTIDINE 20 MG/ 2 ML VIAL ONE (07:09)
[2025-02-13] MEDS ORDERED: DEXAMETHASONE SOD PHOS 4 MG/ML VIAL ONE (07:11)
[2025-02-13] MEDS ORDERED: KETAMINE in NS 50 MG/5 ML SYR ONE (07:11)
[2025-02-13] MEDS ORDERED: LIDOCAINE HCL 2% 5 ML SDV ONE ×2 (07:11→07:20)
[2025-02-13] MEDS ORDERED: ACETAMINOPHEN 1,000 MG/100 ML VIAL ONE (07:11)
[2025-02-13] MEDS ORDERED: KETOROLAC TROMETHAMINE 30 MG/ML VIAL ONE (07:11)
[2025-02-13] MEDS ORDERED: MIDAZOLAM HCL 2 MG/2 ML VIAL ONE (07:15)
[2025-02-13] MEDS ORDERED: NALOXONE HCL 0.4 MG SYR IV PRN ×2 (07:30→08:00)
[2025-02-13] MEDS ORDERED: fentaNYL citrate 50 MCG/ML SDV IV PRN (07:30)
[2025-02-13] MEDS ORDERED: FAMOTIDINE 20 MG/ 2 ML VIAL IV PRN (08:00)
[2025-02-13] MEDS ORDERED: PROCHLORPERAZINE EDISYLATE 10 MG/2 ML VIAL IV PRN (08:00)
[2025-02-13] MEDS ORDERED: MORPHINE SULFATE 10 MG/ML VIAL IV PRN (08:00)
[2025-02-13] MEDS ORDERED: MAGNESIUM HYDROXIDE/AL HYDROX 30 ML CUP PO PRN (08:00)
[2025-02-13] MEDS ORDERED: FAMOTIDINE 20 MG TAB PO PRN (08:00)
[2025-02-13] MEDS ORDERED: SIMETHICONE 80 MG CHEW PO PRN (08:00)
--- NOTE | 2025-02-13 08:12 | NUR ---
02/13/25 0812 Willa Page 0802 PT TO PACU SLEEPING O2 VIA MASK FOGGING NOTED IN MASK.
[2025-02-13 08:55] VITALS: BP 89/58
[2025-02-13] MEDS ORDERED: SIMETHICONE 80 MG CHEW PO SCH (09:00)
[2025-02-13] MEDS ORDERED: SENNOSIDES/DOCUSATE 1 EA TAB PO SCH (09:00)
--- NOTE | 2025-02-13 09:25 | NUR ---
0855: PATIENT BACK IN DAY SURGERY ROOM FROM PACU. VS CHECKED. DENIES PAIN. PERIPAD IN PLACE IS CLEAN, DRY AND INTACT. SCDs ON. ICE WATER PLACED AT BEDSIDE. 0903: PATIENT ASSISTED OOB AND TO BATHROOM. GAIT STEADY. VOID APPROXIMATELY 600 ML. GAIT STEADY BACK TO ROOM. PATIENT GETTING DRESSED.
[2025-02-13 09:49] VITALS: BP 97/58
[2025-02-13] MEDS ORDERED: HEParin SOD (PORCINE) 500 UNIT/5 ML ML IV ONE (10:00)
[2025-02-13] MEDS ORDERED: SEVOFLURANE 250 ML BTL INH ONE (11:33)
--- NOTE | 2025-02-13 11:42 | NUR ---
LE 0950-PT SITTING IN BED DRESSED. RESP EVEN AND UNLABORED. DENIES PAIN AND NAUSEA. PT READY TO GO HOME. FAMILY AT BEDSIDE. LE 1000-WENT OVER DISCHARGE INSTUCTIONS. ALL QUESTIONS ANSWERED. WENT OVER POSTOP MEDICATIONS. LE 1001-PT AMBULATES TO WHEELCHAIR AND RIDE PROVIDED TO FRONT OF HOSPITAL WHERE RIDE WAS WAITING.
--- NOTE | 2025-02-14 04:44 | OR ---
[facility] [address] [place] [address] Signed DATE OF OPERATION: 02/13/2025 SURGEON: Kavita López DO PREOPERATIVE DIAGNOSES: 1. Ahumada syndrome. 2. Need cervical cancer screening. POSTOPERATIVE DIAGNOSES: 1. Ahumada syndrome. 2. Need cervical cancer screening. PROCEDURES PERFORMED: 1. Hysteroscopy, dilation and curettage. 2. Pap under anesthesia. ANESTHESIA: General. ESTIMATED BLOOD LOSS: 5 mL. FLUID DEFICIT: 195. SPECIMENS: 1. Endometrial curettings. 2. Cervical cytology for Pap. FINDINGS: Normal external genitalia with normal clitoris, urethral meatus, bilateral Hankinson's, Bartholin's glands. The narrow introitus consistent with the patient's virginal status. Normal vagina and cervix. On hysteroscopy, normal cervical canal and endometrial cavity with no polyps, fibroids, or significant thickening. Hemostasis at the end of the procedure. COMPLICATIONS: None. INDICATIONS: Electronically Signed By: KAVITA LÓPEZ DO (JD) 02/14/25 0444 PATIENT NAME: SHANNAN WHITE OPERATIVE REPORT DATE OF : [birth year] REPORT #: [id number] PHYSICIAN: KAVITA LÓPEZ DO (JD) PCP: ELIO CRONIN MD REPORT IS CONFIDENTIAL AND NOT TO BE RELEASED WITHOUT AUTHORIZATION [facility] [address] [place] [id number] Signed Ms. White is a very pleasant 29-year-old G0 female, who presents for hysteroscopy D and C. 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 She has never been sexually active and has no plans for sexual activity or fertility in the future and desires definitive treatment with hysterectomy in the future. Prior to hysterectomy, the patient needs endometrial biopsy and Pap smear. She is unable to tolerate exam in the office. Risks, benefits, and alternatives were discussed in detail with the patient. The patient understands and wished to proceed with the procedure. DESCRIPTION OF PROCEDURE: The patient was taken the OR. Time-out was performed to confirm correct patient, correct procedure. General anesthesia was adequately established. The patient was prepped and draped in the dorsal lithotomy position with feet in Yellofin stirrups. ICPs were on and running and no preoperative antibiotics or heparin was indicated. A Walker and Fairfield retractor were used to gently provide access to the vagina and cervix due to patient's narrow introitus. The cervix was visualized and Pap smear was performed without difficulty. The surgeon's gloves were changed. The cervix was then grasped with an Allis clamp. The cervix gently dilated using Hegar dilators to a #7. Operative hysteroscope was then placed in the cervical os and advanced under direct visualization to the uterine cavity. Normal cervical canal and uterine cavity with no polyps, fibroids or endometrial thickening. MyoSure Lite device was selected and circumferential curettage was performed under direct visualization without complication. The scope was withdrawn and the Allis clamp was removed. No bleeding was noted. The patient was then taken to PACU in good and stable condition. Sponge, needle, and instrument counts were correct x2 at the end of the procedure. Kavita Cormier López, DO JDW/MODL /[id number] Electronically Signed By: KAVITA TRIVEDI) LÓPEZ, DO 02/14/25 0444 PATIENT NAME: SHANNAN WHITE OPERATIVE REPORT DATE OF : [birth year] REPORT #: [id number] PHYSICIAN: KAVITA LÓPEZ DO (JD) PCP: ELIO CRONIN MD REPORT IS CONFIDENTIAL AND NOT TO BE RELEASED WITHOUT AUTHORIZATION [facility] [address] [facility] [place] [address] Signed Copies: ~ Electronically Signed By: WALLS (JD) LÓPEZ, DO 02/14/25 0444 PATIENT NAME: SHANNAN WHITE OPERATIVE REPORT DATE OF : [birth year] REPORT #: [id number] PHYSICIAN: KAVITA LÓPEZ (ARLYN) PCP: ELIO CRONIN MD REPORT IS CONFIDENTIAL AND NOT TO BE RELEASED WITHOUT AUTHORIZATION
--- NOTE | 2025-02-15 14:24 | PATH ---
[facility] [address], [place] [address] Signed SPECIMEN(S): A ENDOMETRIAL CURETTINGS SPECIMEN SOURCE: A. ENDOMETRIAL CURETTINGS CLINICAL HISTORY: Hysteroscopy FINAL PATHOLOGIC DIAGNOSIS: Endometrial curettings: - Proliferative to early secretory endometrium, negative for hyperplasia or atypia. JVR:clv MICROSCOPIC EXAMINATION: Histologic sections of all submitted blocks are examined by light microscopy. These findings, together with the gross examination, support the pathologic diagnosis. GROSS DESCRIPTION: The specimen, labeled and designated "White, endometrial curettings," is received in formalin and consists of multiple fragments of pink-huntley to red-brown soft tissue (2.6 x 2.2 x 0.4 cm in aggregate). The specimen is submitted entirely in cassette (A1). VB (under the direct supervision of a pathologist) The Gross Description was prepared using a voice recognition system. The report was reviewed for accuracy; however, sound-alike word errors, addition and/or deletions may occur. If there is any question about this report, please contact Client Services. PERFORMING LABORATORY: Technical component was performed by [facility], [address] [place] [id number] (CLIA# [id number]). Professional interpretation was performed by [facility], [address] [place] [id number] (CLIA#: [id number]). Diagnostician: Alejandro Woo MD Pathologist Electronically Signed 02/15/2025 PATIENT NAME: SHANNAN WHITE PATHOLOGY DATE OF : [birth year] REPORT #: [id number] PHYSICIAN: KHARI PATHOLOGY PCP: ELIO CRONIN MD REPORT IS CONFIDENTIAL AND NOT TO BE RELEASED WITHOUT AUTHORIZATION [address] [place], [place] [address] Signed Copies: ~ PATIENT NAME: SHANNAN WHITE PATHOLOGY DATE OF : [birth year] REPORT #: [id number] PHYSICIAN: KHARI PATHOLOGY PCP: ELIO CRONIN MD REPORT IS CONFIDENTIAL AND NOT TO BE RELEASED WITHOUT AUTHORIZATION
== END 2025-02-13 10:01 | disposition home or self-care (01) ==
LOC: DS 05:54
PROVIDERS: ATTEND Obstetrics & Gynecology
PROC: 0UDB8ZX Extraction of Endometrium, Via Natural or Artificial Opening Endoscopic, Diagnostic (ICD-10-PCS; principal; 2025-02-13 07:30)
DX: Z12.4 Encounter for screening for malignant neoplasm of cervix (principal); Z15.09 Genetic susceptibility to other malignant neoplasm; Z79.899 Other long term (current) drug therapy; Z88.8 Allergy status to other drugs, medicaments and biological substances; Z91.018 Allergy to other foods
CPT/HCPCS: 00952; J0131; J1100; J1790; J1885; J2003; J2250; J2405; J2704; J3490

== ENCOUNTER 2025-04-29 06:02 | Day surgery (SDC) | payer BC ==
[~2025-04-29] VITALS: Ht 160 cm; Wt 60.0 kg
[2025-04-29 06:13] VITALS: BP 96/64
--- NOTE | 2025-04-29 06:40 | NUR ---
NO BLOOD RETURN PORT FLUSHESE EASILY MOVED ARM AND PT UP BACKWARDS LEANED FORWARD ETC. CONTS TO FLUSH EASILY.
--- NOTE | 2025-04-29 06:47 | NUR ---
LAB IN TO DRAW T/S. FROM .
[2025-04-29] MEDS ORDERED: IBLOOD GLUCOSE TEST STRIP 1 EA TEST VI PRN ×2 (07:00→09:30)
[2025-04-29] MEDS ORDERED: CEFAZOLIN SODIUM 2 GM in SODIUM CHLORIDE 0.9% 100 ML IV SCH (07:00)
[2025-04-29] MEDS ORDERED: LIDOCAINE HCL 1% 5 ML SDV INJ ONE (07:00)
[2025-04-29] MEDS ORDERED: HEParin SOD (PORCINE) 5,000 UNIT/ML SDV SUB-Q SCH (07:00)
[2025-04-29 07:14] LABS: MCH 27.2 PG (25.6-32.2); MCHC 31.4 g/dL (32.2-35.5); MCV 86.4 fL (79.4-94.8); RBC 4.64 M/uL (3.93-5.22)
[2025-04-29 07:34] LABS: ABO O; ANTIBODY SCREEN NEGATIVE; RH NEGATIVE
[2025-04-29] MEDS ORDERED: LIDOCAINE HCL 2% 5 ML SDV ONE ×2 (08:07→12:07)
[2025-04-29] MEDS ORDERED: SUGAMMADEX SODIUM 200 MG/2 ML ML ONE (08:07)
[2025-04-29] MEDS ORDERED: fentaNYL citrate 100 MCG/2 ML VIAL ONE (08:07)
[2025-04-29] MEDS ORDERED: ROCURONIUM BROMIDE 50 MG/5 ML SYR ONE (08:07)
[2025-04-29] MEDS ORDERED: ACETAMINOPHEN 1,000 MG/100 ML VIAL ONE (08:07)
[2025-04-29] MEDS ORDERED: DEXAMETHASONE SOD PHOS 4 MG/ML VIAL ONE (08:07)
[2025-04-29] MEDS ORDERED: MIDAZOLAM HCL 2 MG/2 ML VIAL ONE (08:07)
--- NOTE | 2025-04-29 08:07 | NUR ---
DENIES ANY NEEDS.
[2025-04-29] MEDS ORDERED: KETAMINE in NS 50 MG/5 ML SYR ONE (08:08)
[2025-04-29] MEDS ORDERED: LIDOCAINE HCL 2% 20 MG/ML VIAL INJ ONE (08:08)
--- NOTE | 2025-04-29 08:30 | NUR ---
PAMELA CESPEDES IN TO TALK WITH PT. DR MARTINEZ IN TO TALK WITH PT.
[2025-04-29] MEDS ORDERED: fentaNYL citrate 50 MCG/ML SDV IV PRN (09:30)
[2025-04-29] MEDS ORDERED: PROCHLORPERAZINE EDISYLATE 10 MG/2 ML VIAL IV PRN ×2 (09:30→11:00)
[2025-04-29] MEDS ORDERED: NALOXONE HCL 0.4 MG SYR IV PRN ×2 (09:30→11:00)
[2025-04-29] MEDS ORDERED: HYDROmorphone HCL 1 MG/ML SYR IV PRN (09:30)
[2025-04-29] MEDS ORDERED: LACTATED RINGER'S 1,000 ML IV ONE (09:46)
[2025-04-29] MEDS ORDERED: FLUORESCEIN SODIUM 500 MG/5 ML ML ONE (10:36)
[2025-04-29] MEDS ORDERED: FAMOTIDINE 20 MG/ 2 ML VIAL IV PRN (11:00)
[2025-04-29] MEDS ORDERED: OXYCODONE/APAP 5/325 TAB PO PRN (11:00)
[2025-04-29] MEDS ORDERED: SIMETHICONE 80 MG CHEW PO PRN (11:00)
[2025-04-29] MEDS ORDERED: MAGNESIUM HYDROXIDE/AL HYDROX 30 ML CUP PO PRN (11:00)
[2025-04-29] MEDS ORDERED: MORPHINE SULFATE 10 MG/ML VIAL IV PRN (11:00)
--- NOTE | 2025-04-29 11:30 | NUR ---
04/29/25 1130 Sandra Hernandez 1059: PT ARRIVED TO PACU VIA STRETCHER. ORAL AIRWAY IN PLACE AND PT ON 6L VIA MASK. PT NON AROUSABLE AT THIS TIME. PT HAS 2 LAP SITES AND A REMBERTO PAD IN PLACE. 1106: ORAL AIRWAY OUT AT THIS TIME. PT REMAINS ON 6L VIA MASK. 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 ADDITIONAL BAG OF FLUID HUNG AT THIS TIME. 1115: PT TITRATED TO RA AT THIS TIME.
[2025-04-29] MEDS ORDERED: DEXAMETHASONE SOD PHOS 10 MG/ML VIAL ONE (12:06)
[2025-04-29] MEDS ORDERED: SODIUM CHLORIDE 0.9% 20 ML IV ONE (12:07)
[2025-04-29] MEDS ORDERED: Ropivacaine HCl 0.5% 30 ML VIAL ONE (12:07)
[2025-04-29 12:15] VITALS: BP 85/55
--- NOTE | 2025-04-29 12:16 | NUR ---
RETURNED FROM PACU CALL LIGHT GIVEN. TANK TRUCK DRIVER IN TO DO TAP BLOCKS SEE ANESTHESIA RECORD/NOTES
[2025-04-29] MEDS ORDERED: SIMETHICONE 80 MG CHEW PO SCH (13:00)
[2025-04-29 13:04] VITALS: BP 88/58
[2025-04-29] MEDS ORDERED: SEVOFLURANE 250 ML BTL INH ONE (13:04)
--- NOTE | 2025-04-29 13:17 | NUR ---
1210 MUNOZ CATH DCD 10MLS REMOVED FROM BULB. PT INSTRUCTED SHE WILL HAVE TO GET UP TO BR NOW. URINE IS BRIGHT YELLOW FROM PROCEDURE SO NOT TO BE ALARMED.
[2025-04-29 13:59] VITALS: BP 96/59
--- NOTE | 2025-04-29 14:02 | NUR ---
BP MUCH BETTER WANTS TO GET UP TO BR.
[2025-04-29] MEDS ORDERED: HEParin SOD (PORCINE) 500 UNIT/5 ML ML IV ONE (14:15)
--- NOTE | 2025-04-29 14:24 | NUR ---
UP TO BR UNABLE TO VOID AFTER SITTING ON TOILET X 10 MIN. RETURNED TO BED. RATES PAIN 2/10.
[2025-04-29 15:15] VITALS: BP 88/62
--- NOTE | 2025-04-29 15:20 | NUR ---
STATES DOESNT FEEL LIKE SHE NEEDS TO VOID. BLADDER SCANNED FOR 21 MLS.
--- NOTE | 2025-04-29 15:21 | NUR ---
USING IS ENC TO USE EVERY HR WHILE AWAKE.
--- NOTE | 2025-04-29 15:34 | NUR ---
BLADDER SCANNER FROM MED/SURG 197 WITH THIS SCANNER.
--- NOTE | 2025-04-29 16:08 | NUR ---
UP TO BR VOIDS 500MLS DARK MARQUISE URINE. WANTS TO GO HOME AND REQUESTS PAIN PILL BEFORE LEAVING.
--- NOTE | 2025-04-29 16:11 | NUR ---
ATE PUDDING THEN PAIN MED GIVEN.
--- NOTE | 2025-04-29 16:33 | NUR ---
1615 DC INSTRUCTIONS EXPLAINED AND COMPUTER PRINT OUT COPIES REVIEWED WITH PT. STATES SHE UNDERSTANDS AND HASNT ANY QUESTIONS. ENC TO REREAD AT HOME AND CALL OFFICE IF QUESTIONS ARISE LATER. HAS CALLED MOM TO PICK HER UP.
--- NOTE | 2025-04-29 16:36 | NUR ---
PT DECLINED TO WAIT EXTRA TIME AFTER PAIN PILL. DENIES ANY S/S OF REACTION. MOM IS HER TO GET HER AT 1630 INTO CAR.
--- NOTE | 2025-05-01 11:47 | PATH ---
[facility] [address] [place], [place] [address] Signed SPECIMEN(S): A CERVIX, UTERUS, TUBES SPECIMEN SOURCE: A. CERVIX, UTERUS, TUBES CLINICAL HISTORY: Ahumada syndrome. Crohn's disease. FINAL PATHOLOGIC DIAGNOSIS: Uterus, cervix, bilateral fallopian tubes; resection: - Cervix: Nabothian cyst, negative for dysplasia. - Uterus: Proliferative endometrium, negative for atypia or hyperplasia. - Fallopian tubes: Histologically unremarkable fimbria and fallopian tubes. NA MICROSCOPIC EXAMINATION: Histologic sections of all submitted blocks are examined by light microscopy. These findings, together with the gross examination, support the pathologic diagnosis. GROSS DESCRIPTION: The specimen, labeled and designated "White, uterus, cervix, bilateral fallopian tubes," is received in formalin and consists of uterus and cervix with undesignated and bilateral fallopian tubes. The uterus measure 5.0 cm from cornu to cornu, 3.0 cm anterior to posterior and 7.0 cm from cervix to fundus. The serosal surface is violaceous with several subserosal bubbles filled with translucent fluid. The uterus weighs 88 g. The ectocervix is pink-huntley, smooth with areas of roughening around the cervical canal opening. The ectocervix measures 4.1 x 4.0 cm. Sectioning through the cervix reveals a pink-huntley homogenous tissue. The endometrial cavity is triangular shaped and measure 3.5 x 2.0 cm. It is lined with pink-red, hemorrhagic and smooth endometrium. Sectioning through myometrium reveals pink-huntley homogenous tissue. No masses or abnormalities are grossly identified. The myometrium measure 1.4 cm in thickness. The endometrium measures up to 0.2 cm in thickness. Entire endometrium is submitted due to patient history. Both fallopian tubes show fimbria and violaceous and smooth serosa. The first fallopian tube measures 4.5 cm in length and 0.9 cm in diameter. The second fallopian tube measure 6 cm in length and PATIENT NAME: SHANNAN WHITE PATHOLOGY DATE OF : [birth year] REPORT #: [id number] PHYSICIAN: KHARI PATHOLOGY PCP: ELIO CRONIN MD REPORT IS CONFIDENTIAL AND NOT TO BE RELEASED WITHOUT AUTHORIZATION [facility] [address] [place], [place] [address] Signed 0.8 cm in diameter. Sectioning through both fallopian tubes is grossly unremarkable. Both fallopian tubes are entirely submitted per SEE-FIM protocol due to patient history. Cassette Summary: (A1) cervix, inside sales account representative sections, posterior inked (A2) endomyometrium, inside sales account representative sections (A3-A5) posterior endometrium, sequentially from superior to inferior and entirely submitted (A6) anterior endometrium, sequentially from superior to inferior and entirely submitted (A7-A9) first fallopian tube, entirely submitted (A10-A12) second fallopian tube, entirely submitted JS (under the direct supervision of a pathologist) The Gross Description was prepared using a voice recognition system. The report was reviewed for accuracy; however, sound-alike word errors, addition and/or deletions may occur. If there is any question about this report, please contact Client Services. ADDITIONAL NOTES: Immunohistochemical and/or in situ hybridization studies if performed in this case included appropriate positive controls that reacted as expected. This test was developed and its performance characteristics determined by [facility] [facility]. It has not been cleared or approved by the U.S. Food and Drug Administration. The FDA has determined that such clearance or approval is not necessary. This test is used for clinical purposes. It should not be regarded as investigational or for research. [facility] is certified under the Clinical Laboratory Improvement Amendments of 1988 (CLIA) as qualified to perform high complexity clinical laboratory testing. PERFORMING LABORATORY: Technical component was performed by [facility], [address] [place] [id number] (CLIA# [id number]). Professional interpretation was performed by [facility], [address] [place] [address] (CLIA#: [id number]). Diagnostician: Lola Williamson MD Pathologist Electronically Signed 05/01/2025 PATIENT NAME: SHANNAN WHITE PATHOLOGY DATE OF : [birth year] REPORT #: [id number] PHYSICIAN: KHARI BAUER PCP: ELIO CRONIN MD REPORT IS CONFIDENTIAL AND NOT TO BE RELEASED WITHOUT AUTHORIZATION [facility] [address] [place] [address] [place] [address] Signed Copies: ~ PATIENT NAME: SHANNAN WHITE PATHOLOGY DATE OF : [birth year] REPORT #: [id number] PHYSICIAN: KHARI BAUER PCP: ELIO CRONIN MD REPORT IS CONFIDENTIAL AND NOT TO BE RELEASED WITHOUT AUTHORIZATION
== END 2025-04-29 16:15 | disposition home or self-care (01) ==
LOC: DS 06:02
PROVIDERS: ATTEND Obstetrics & Gynecology
PROC: 0UT94ZZ Resection of Uterus, Percutaneous Endoscopic Approach (ICD-10-PCS; principal; 2025-04-29 08:50)
PROC: 0UT74ZZ Resection of Bilateral Fallopian Tubes, Percutaneous Endoscopic Approach (ICD-10-PCS; 2025-04-29 08:50)
DX: N88.8 Other specified noninflammatory disorders of cervix uteri (principal); N73.6 Female pelvic peritoneal adhesions (postinfective); Z15.09 Genetic susceptibility to other malignant neoplasm; K50.90 Crohn's disease, unspecified, without complications; Z88.8 Allergy status to other drugs, medicaments and biological substances
CPT/HCPCS: 00840; 36415; 64488; 85027; 86850; 86900; 86901; J0131; J0688; J1100; J1171; J1644; J2003; J2250; J2405; J2704; J2795; J3010; J3490; J7121